=== PATIENT | female | born 1930 | race African-American/Black ===

== ENCOUNTER 2016-11-26 21:14 | Emergency (ER) | payer OTHER ==
[2016-11-26 21:45] VITALS: BMI 18.8
--- NOTE | 2016-11-26 22:12 | PDOC ---
History of Present Illness - General Chief Complaint: Injury Stated Complaint: RIGHT KNEE PAIN Time Seen by Provider: 11/26/16 21:37 Past History - Past Medical History Allergies/Adverse Reactions: Allergies Allergy/AdvReac Type Severity Reaction Status Date / Time No Known Allergies Allergy Verified 11/26/16 21:45 - Psycho/Social/Smoking Cessation Hx Suicidal Ideation: No Smoking History: Never smoked Have you smoked in the past 12 months: No Information on smoking cessation initiated: No Hx Alcohol Use: No Drug/Substance Use Hx: No *Physical Exam - Vital Signs Last Vital Signs Temp Pulse Resp BP Pulse Ox 98.9 F 81 19 111/87 97 11/26/16 21:38 11/26/16 21:38 11/26/16 21:38 11/26/16 21:38 11/26/16 21:38 *DC/Admit/Observation/Transfer - Discharge Dispostion Condition at time of disposition: Fair
[2016-11-26] MEDS ORDERED: ACETAMINOPHEN 500 MG TABLET (FP) PO ONE (22:19)
--- NOTE | 2016-11-26 22:23 | PDOC ---
History of Present Illness - General Chief Complaint: Injury Stated Complaint: RIGHT KNEE PAIN Time Seen by Provider: 11/26/16 21:37 - History of Present Illness Initial Comments: 11/26/16 22:20 86F w/ hx of paranoid schizophrenia presenting from [facility] for knee pain at the insistence of providers at her home. Pt reports losing her balance and falling backward in elevator this am and landing on her back and buttocks. She denies hurting her knee, any LOC, or dizziness. However, she states that later in the day, she began having pain behind her right knee causing her to limp. Past History - Past Medical History Allergies/Adverse Reactions: Allergies Allergy/AdvReac Type Severity Reaction Status Date / Time No Known Allergies Allergy Verified 11/26/16 21:45 Comment:: 11/26/16 22:23 paranoid schizophrenia HTN GERD COPD 11/26/16 22:23 - Surgical History Comments:: 11/26/16 22:23 None per patient - Psycho/Social/Smoking Cessation Hx Suicidal Ideation: No Smoking History: Never smoked Have you smoked in the past 12 months: No Information on smoking cessation initiated: No Hx Alcohol Use: No Drug/Substance Use Hx: No Review of Systems - Review of Systems Comments:: 11/26/16 22:23 GENERAL/CONSTITUTIONAL: No fever or chills. HEAD, EYES, EARS, NOSE AND THROAT: No change in vision. No ear pain or discharge. No sore throat. CARDIOVASCULAR: No chest pain or shortness of breath RESPIRATORY: No cough, wheezing, or hemoptysis. GASTROINTESTINAL: No nausea, vomiting, diarrhea or constipation. GENITOURINARY: No dysuria, frequency, or change in urination. SKIN: No rash NEUROLOGIC: No headache, vertigo, loss of consciousness, or change in strength/ sensation. ENDOCRINE: No increased thirst. No abnormal weight change HEMATOLOGIC/LYMPHATIC: No anemia, easy bleeding, or history of blood clots. ALLERGIC/IMMUNOLOGIC: No hives or skin allergy. *Physical Exam - Vital Signs Last Vital Signs Temp Pulse Resp BP Pulse Ox 98.9 F 81 19 111/87 97 11/26/16 21:38 11/26/16 21:38 11/26/16 21:38 11/26/16 21:38 11/26/16 21:38 - Physical Exam Comments: 11/26/16 22:26 GENERAL: Awake, alert, and fully oriented, in no acute distress HEAD: No signs of trauma, normocephalic, atraumatic LUNGS: No distress, speaks full sentences, clear to auscultation bilaterally HEART: Regular rate and rhythm, normal S1 and S2, no murmurs, rubs or gallops, peripheral pulses normal and equal bilaterally. ABDOMEN: Soft, nontender, normoactive bowel sounds. No guarding, no rebound. No masses EXTREMITIES: NT to palpation of right knee or popliteal fossa. Pain elicited when flexing knee but not extending knee. no swelling, no crepitus. NEUROLOGICAL: Cranial nerves II through XII grossly intact. Normal speech, pt limped favoring left leg, no focal sensorimotor deficits SKIN: Warm, Dry, normal turgor, no rashes or lesions noted. Medical Decision Making - Medical Decision Making 11/26/16 22:29 86F w/ hx of paranoid schizophrenia presenting with left popliteal fossa pain upon walking s/p fall in elevator. Exam notable for pain upon knee flexion, but no swelling or crepitus or focal knee pain evident. Likely muscular strain. -knee radiographs to rule out fracture -1000mg tylenol for pain *DC/Admit/Observation/Transfer Diagnosis at time of Disposition: Acute knee pain - Discharge Dispostion Disposition: HOME Condition at time of disposition: Stable Admit: No - Patient Instructions Additional Instructions: Pain behind your right knee is likely due to a muscular strain. Use walker when walking to prevent another fall and take tylenol as needed for pain. Return to ED if pain worsens or does not improve in 7 days. - Attestations Physician Attestion: 11/26/16 22:32 I, Dr. Gamal Keith, attest that this document has been prepared under my direction and personally reviewed by me in its entirety. I further attest, that it accurately reflects all work, treatment, procedures and medical decision -making performed by me.
[2016-11-26] MEDS ORDERED: ACETAMINOPHEN 325 MG TABLET (FP) ONE (22:41)
--- NOTE | 2016-11-26 23:04 | PDOC ---
Attending Attestation - Resident Resident Name: Gamal Keith - HPI HPI: 11/26/16 23:00 86 yo female from [place] fell backwards in an elevator this morning. -she Did not hit her head but later in the day she has pain in her rt knee -she is alert and ambulatory - Physicial Exam PE: 11/26/16 23:04 thin 86 yo female has c/o pain behind her rt knee right knee- no erythema,no swelling,FROM,no deformity, pt is ambulating lungs cta b/l cvr [id number] abd flat,nontender neuro moving all extremities,alert and conversant - Medical Decision Making 11/26/16 23:08 radiogrpah -no fracture. IMP muscle strain
--- NOTE | 2016-11-26 23:11 | PDOC ---
*Physical Exam - Vital Signs Last Vital Signs Temp Pulse Resp BP Pulse Ox 98.9 F 81 19 111/87 97 11/26/16 21:38 11/26/16 21:38 11/26/16 21:38 11/26/16 21:38 11/26/16 21:38 ED Treatment Course - Medications Given in the ED: ED Medications Discontinued Medications Generic Name Dose Route Start Last Admin Trade Name Ami PRN Reason Stop Dose Admin Acetaminophen 1,000 mg 11/26/16 22:19 11/26/16 22:48 Tylenol - PO 11/26/16 22:20 650 mg ONCE ONE Administration *DC/Admit/Observation/Transfer Diagnosis at time of Disposition: Knee pain, acute Qualifiers: Laterality: right Qualified Code(s): M25.561 - Pain in right knee - Discharge Dispostion Disposition: HOME Condition at time of disposition: Stable - Patient Instructions Printed Discharge Instructions: DI for Knee Pain Additional Instructions: Pain behind your right knee is likely due to a muscular strain. Use walker when walking to prevent another fall and take tylenol as needed for pain. Return to ED if pain worsens or does not improve in 7 days.
[2016-11-27 00:30] VITALS: BP 146/90; PULSE 65; TEMP 97.9
== END 2016-11-27 00:30 | disposition home or self-care (01) ==
LOC: SUPCPDRO 21:14 → JER 21:14
DX: M25.561 Pain in right knee (principal); W17.89XA Other fall from one level to another, initial encounter; Y93.89 Activity, other specified; Y92.198 Other place in other specified residential institution as the place of occurrence of the external cause; F20.0 Paranoid schizophrenia
CPT/HCPCS: 73564-TC-RT; 99282-25

== ENCOUNTER 2018-10-09 09:37 | Emergency (ER) | payer OTHER ==
[2018-10-09 09:57] VITALS: BMI 19.9
--- NOTE | 2018-10-09 09:57 | PDOC ---
History of Present Illness - General Chief Complaint: Injury Stated Complaint: FALL Time Seen by Provider: 10/09/18 09:47 - History of Present Illness Initial Comments: Filomena Milligan is an 88yo woman with a PMH of schizophrenia, COPD, HTN, GERD who presents from a SNF following a fall out of bed. She states that she was asleep and rolled out of bed. She landed "face first" onto the floor and hit her left forehead. She denies any other injury. She states that she currently feels well and denies any symtpoms other than local left forehead pain. Ms Milligan states that she did not think she needed to come to the ED but "they made me come." Past History - Past Medical History Allergies/Adverse Reactions: Allergies Allergy/AdvReac Type Severity Reaction Status Date / Time No Known Allergies Allergy Verified 10/09/18 09:51 Home Medications: Ambulatory Orders Benztropine Mesylate [Cogentin -] 0.5 mg PO BID 11/26/16 Citalopram Hydrobromide [Citalopram HBr] 20 mg PO DAILY 11/26/16 Clopidogrel Bisulfate [Clopidogrel] 75 mg PO DAILY 11/26/16 Divalproex [Depakote -] 250 mg PO BID 11/26/16 Donepezil HCl [Aricept -] 10 mg PO DAILY 11/26/16 Famotidine [Pepcid -] 20 mg PO BID 11/26/16 Olanzapine [Zyprexa -] 2.5 mg PO HS 11/26/16 COPD: Yes GI Disorders: Yes (GERD) HTN: Yes Psychiatric Problems: Yes (schizophrenia paranoid type) - Suicide/Smoking/Psychosocial Hx Smoking History: Never smoked Have you smoked in the past 12 months: No Hx Alcohol Use: No Drug/Substance Use Hx: No Substance Use Type: None Review of Systems - Review of Systems Comments:: General: No fevers, no chills, no weight or appetite change, no malaise HEENT: No changes in vision, no changes in hearing, no congestion, no sore throat CV: No chest pain, no palpitations, no LE edema Pulm: No SOB, no cough, no wheezing GI: No nausea or vomiting, no change in bowel habits, no melena : No frequency, no urgency, no dysuria Musc: No back pain, no joint swelling, no recent injury Skin: No rash, no lesions, no erythema Endo: No excessive thirst, no heat/cold intolerance Heme: No unusual bruising or bleeding, no swollen glands Neuro: No syncope, no numbness/tingling, no focal weakness Vasc: No claudication Psych: No recent change in mood, no SI or HI *Physical Exam - Physical Exam Comments: General: Comfortable, no acute distress HEENT: Contusion w/o laceration or abrasion on left forehead, notable swellingPERRL, EOMI, MMM, voice normal, normal neck ROM, no posterior tenderness Cards: RRR, no murmur appreciated Pulm: Comfortable on room air, clear to auscultation bilaterally Abd: Soft, nontender, nondistended Ext: Atraumatic. No LE edema. ROM intact Vasc: Extremities WWP. Skin: Normal color, no rashes or lesions Neuro: A&Ox3, CN grossly intact, normal speech, motor/sensory grossly intact and symmetric Psych: Mood appropriate to situation ED Treatment Course - LABORATORY CBC & Chemistry Diagram: 10/09/18 12:45 10/09/18 14:04 Medical Decision Making - Medical Decision Making 10/09/18 09:57 Filomena Milligan is an 88yo woman with a PMH of schizophrenia, COPD, HTN, GERD who presents from a SNF with a left forehead injury following a fall from bed while sleeping overnight. She denies any complaints but was noted to have a productive cough in the ED. - Contusion on left forehead w/o broken skin. No neuro deficits on exam - CT head, CT c-spine to evaluate for injury - Productive cough noted in ED w/ poor air movement on exam. Duoneb and CXR 10/09/18 11:12 - CT head and CT c-spine completed. No acute fracture, dislocation, bleeding, or other acute injury. - CXR to be completed. If no concerns, will most likely d/c home 10/09/18 14:54 - Labs unremarkable. - CXR without focal pathology - Observed ambulating without difficulty in the ED. Will d/c home Discussed with Dr Juan. Lisah Martinez PGY1 *DC/Admit/Observation/Transfer Diagnosis at time of Disposition: Fall Qualifiers: Encounter type: initial encounter Qualified Code(s): W19.XXXA - Unspecified fall, initial encounter Closed head injury Qualifiers: Encounter type: initial encounter Qualified Code(s): S09.90XA - Unspecified injury of head, initial encounter - Discharge Dispostion Disposition: HOME Condition at time of disposition: Stable Decision to Admit order: No - Referrals - Patient Instructions Printed Discharge Instructions: DI for Closed Head Injury Additional Instructions: Discharge Instructions: You were seen in the ED following a fall. You had no injury on your head or neck CT scans. You may take 650mg acetaminophen every 6-8 hours as needed for pain. Please continue taking all of your regular medications as prescribed. Follow up with your regular doctor within the next week. Seek immediate care for worsening symptoms, persistent falling, excessive sleepiness, multiple episodes of vomiting within an hour for several hours, any neurological symptoms, or any other medical emergency. - Post Discharge Activity
--- NOTE | 2018-10-09 10:26 | PDOC ---
Documentation entered by Kolby Woods SCRIBE, acting as scribe for Megan Juan MD. Megan Juan MD: This documentation has been prepared by the Chuck crews Aiswarya, SCRIBE, under my direction and personally reviewed by me in its entirety. I confirm that the documentation accurately reflects all work, treatment, procedures, and medical decision making performed by me. Attending Attestation - Resident Resident Name: MichelleLisha - ED Attending Attestation I have performed the following: I have examined & evaluated the patient, The case was reviewed & discussed with the resident, I agree w/resident's findings & plan, Exceptions are as noted - HPI HPI: 10/09/18 10:18 The patient is a 88 year old female, with a significant PMH of COPD, GERD, HTN and schizophrenia paranoid type CAROTID STENOSIS, who presents to the emergency department from [facility] for evaluation of fall that occurred today. The patient states she was sleeping and fell off her bed. She reports hitting her forehead but denies losing consciousness . The patient currently does not report any pain or any other injury but notes a left frontal hematoma. She mentions that she did not want to come in but staff at facility insisted. She denies any numbness, tingling or neurological deficit. Denies chest pain, shortness of breath, headache and dizziness. Allergies: NKDA Past surgical history:None reported Social history: None reported PCP: None reported 10/09/18 10:21 - Physicial Exam PE: 10/09/18 10:19 GENERAL: Awake, alert, and fully oriented, in no acute distress HEAD: +Left frontal hematoma. EYES: PERRLA, EOMI, sclera anicteric, conjunctiva clear ENT: Auricles normal inspection, hearing grossly normal, nares patent, oropharynx clear without exudates. Moist mucosa LUNGS: +Crackles at both bases. Poor air flow. HEART: Regular rate and rhythm, normal S1 and S2, no murmurs, rubs or gallops EXTREMITIES: 5/5 strength . Normal range of motion, no edema. No clubbing or cyanosis. No cords, erythema, or tenderness NEUROLOGICAL: No spinal tenderness. Cranial nerves II through XII grossly intact. Normal speech. SKIN: Warm, Dry, normal turgor, no rashes or lesions noted. - Medical Decision Making 10/09/18 11:59 88 yo F h/o schizophrenia carotid stenosis copd on plavix here s/p fall out of bed. c/o forehead heamtoma. pt states walks normally no assistance. has ambulated since her fall. no current c/o ext pain. no other laceration or contusions. 10/09/18 12:21 due to age and anticoagulation on plavix will CT head. CXR due to crackles at lung bases. will give duoneb. care plan d/w dr Kohler at [facility]. left message for pt son on mobile [phone]
[2018-10-09 10:32] VITALS: BP 117/73; PULSE 81; TEMP 98.7
[2018-10-09] MEDS ORDERED: ALBUTEROL SO4 2.5/IPRATROPIUM 0.5 INH SOL 3 ML VIAL.NEB. NEB ONE ×2 (11:27→11:29)
[2018-10-09] MEDS ORDERED: SODIUM CHLORIDE 0.9% 500 ML INFUS.BAG IV ONE (11:32)
[2018-10-09] MEDS ORDERED: METOCLOPRAMIDE HCL INJECTION 10 MG/2 ML VIAL IVPUSH ONE (11:32)
[2018-10-09 12:59] LABS: BASO % 0.7 % (0-2.0); EOS % 0.7 % (0-4.5); HEMATOCRIT 36.9 % (32.4-45.2); HEMOGLOBIN 12.3 GM/dL (10.7-15.3); LYMPH % 25.5 % (8-40); MCH 30.8 pg (25.7-33.7); MCHC 33.3 g/dl (32.0-36.0); MEAN CELL VOLUME 92.6 fl (80-96); MEAN PLT VOLUME 8.6 fl (7.5-11.1); NEUT % 61.1 % (42.8-82.8); RBC 3.99 M/mm3 (3.60-5.2); WHITE BLOOD COUNT 4.1 K/mm3 (4.0-10.0)
[2018-10-09] MEDS ORDERED: METOCLOPRAMIDE HCL INJECTION 10 MG/2 ML VIAL ONE (13:01)
[2018-10-09 13:22] LABS: PLATELET COUNT 119 K/MM3 (134-434)
[2018-10-09 14:47] LABS: ALBUMIN 3.5 g/dl (3.4-5.0); BILIRUBIN,TOTAL 0.6 mg/dL (0.2-1); BLOOD UREA NITROGEN 7.8 mg/dL (7-18); CALCIUM 8.6 mg/dL (8.5-10.1); CREATININE 0.6 mg/dL (0.55-1.3); POTASSIUM 4.1 mmol/L (3.5-5.1); TOT PROT 6.8 g/dl (6.4-8.2)
== END 2018-10-09 17:52 | disposition home or self-care (01) ==
LOC: JER 09:37
PROC: 3E0337Z Introduction of Electrolytic and Water Balance Substance into Peripheral Vein, Percutaneous Approach (ICD-10-PCS; principal; 2018-10-09)
PROC: 3E0F7GC Introduction of Other Therapeutic Substance into Respiratory Tract, Via Natural or Artificial Opening (ICD-10-PCS; 2018-10-09)
PROC: 3E033GC Introduction of Other Therapeutic Substance into Peripheral Vein, Percutaneous Approach (ICD-10-PCS; 2018-10-09)
DX: S09.90XA Unspecified injury of head, initial encounter (principal); W06.XXXA Fall from bed, initial encounter; Y93.89 Activity, other specified; Y92.092 Bedroom in other non-institutional residence as the place of occurrence of the external cause; J44.9 Chronic obstructive pulmonary disease, unspecified; I10 Essential (primary) hypertension; K21.9 Gastro-esophageal reflux disease without esophagitis; F25.9 Schizoaffective disorder, unspecified
CPT/HCPCS: 36415; 70450-TC; 71046-TC-FY; 72125-TC; 80053; 85025; 94640; 96374; 99283-25

== ENCOUNTER 2019-02-21 10:23 | Inpatient (IN) | payer OTHER ==
[2019-02-21] MEDS ORDERED: ACETAMINOPHEN 1000 MG/100 ML VIAL (NON FORMULARY) IVPB ONE (10:40)
[2019-02-21] MEDS ORDERED: SODIUM CHLORIDE 1,000 ML IV STA (10:40)
--- NOTE | 2019-02-21 10:46 | PDOC ---
History of Present Illness - General Chief Complaint: Injury Stated Complaint: FALL/RT HIP PAIN Time Seen by Provider: 02/21/19 10:38 - History of Present Illness Initial Comments: 02/21/19 10:41 Ms. Milligan is an 88 yo female w/ pmh of HTN, COPD, GERD, and schizophrenia transferred from [facility] where she is a resident for evaluation of R hip injury. Patient reportedly fell while getting ready this morning and hurt her R hip. Reports pain at site however has no other complaints at this time. Denies any head injury or LOC. Denies other symptoms at this time. The patient denies chest pain, shortness of breath, headache and dizziness. Denies fever, chills, nausea, vomit, diarrhea and constipation. Denies dysuria, frequency, urgency and hematuria. Past History - Past Medical History Allergies/Adverse Reactions: Allergies Allergy/AdvReac Type Severity Reaction Status Date / Time No Known Allergies Allergy Verified 10/09/18 09:51 Home Medications: Ambulatory Orders Benztropine Mesylate [Cogentin -] 0.5 mg PO BID 11/26/16 Citalopram Hydrobromide [Citalopram HBr] 20 mg PO DAILY 11/26/16 Clopidogrel Bisulfate [Clopidogrel] 75 mg PO DAILY 11/26/16 Divalproex [Depakote -] 250 mg PO BID 11/26/16 Donepezil HCl [Aricept -] 10 mg PO DAILY 11/26/16 Famotidine [Pepcid -] 20 mg PO BID 11/26/16 Olanzapine [Zyprexa -] 2.5 mg PO HS 11/26/16 COPD: Yes GI Disorders: Yes (GERD) HTN: Yes Psychiatric Problems: Yes (schizophrenia paranoid type) - Psycho Social/Smoking Cessation Hx Smoking History: Never smoked Have you smoked in the past 12 months: No Hx Alcohol Use: No Drug/Substance Use Hx: No Substance Use Type: None Review of Systems - Review of Systems Comments:: 02/21/19 10:45 GENERAL/CONSTITUTIONAL: No fever or chills. No weakness. HEAD, EYES, EARS, NOSE AND THROAT: No change in vision. No ear pain or discharge. No sore throat. CARDIOVASCULAR: No chest pain or shortness of breath RESPIRATORY: No cough, wheezing, or hemoptysis. GASTROINTESTINAL: No nausea, vomiting, diarrhea or constipation. GENITOURINARY: No dysuria, frequency, or change in urination. MUSCULOSKELETAL: +R hip pain as described. SKIN: No rash NEUROLOGIC: No headache, vertigo, loss of consciousness, or change in strength/ sensation. ENDOCRINE: No increased thirst. No abnormal weight change HEMATOLOGIC/LYMPHATIC: No anemia, easy bleeding, or history of blood clots. ALLERGIC/IMMUNOLOGIC: No hives or skin allergy. *Physical Exam - Physical Exam Comments: 02/21/19 10:45 GENERAL: Awake, alert, and oriented x2, in no acute distress HEAD: No signs of trauma, normocephalic, atraumatic EYES: PERRLA, EOMI, sclera anicteric, conjunctiva clear ENT: Auricles normal inspection, hearing grossly normal, nares patent, oropharynx clear without exudates. Moist mucosa NECK: Normal ROM, supple, no lymphadenopathy, JVD, or masses LUNGS: No distress, speaks full sentences, clear to auscultation bilaterally HEART: Regular rate and rhythm, normal S1 and S2, no murmurs, rubs or gallops, peripheral pulses normal and equal bilaterally. ABDOMEN: Soft, nontender, normoactive bowel sounds. No guarding, no rebound. No masses EXTREMITIES: +RLE shortnened and externally rotated. TTP at R hip. Otherwise normal inspection, no edema. No clubbing or cyanosis. NEUROLOGICAL: Cranial nerves II through XII grossly intact. Normal speech, normal gait, no focal sensorimotor deficits SKIN: Warm, Dry, normal turgor, no rashes or lesions noted. ED Treatment Course - LABORATORY CBC & Chemistry Diagram: 02/21/19 11:12 02/21/19 11:12 - RADIOLOGY Radiology Studies Ordered: Category Date Time Status CHEST X-RAY PORTABLE* [RAD] Stat Radiology 02/21/19 10:40 Ordered Medical Decision Making - Medical Decision Making 02/21/19 10:53 Ms. Milligan is an 88 yo female w/ pmh as described who presents for evaluation of symptoms concerning for fracture s/p fall. Patient will be evaluated with pre -op labs as well as XR. 02/21/19 12:04 Right femoral intertrochanteric fracture noted on XR. Patient will be admitted for orthopedic evaluation and surgery as needed. Discharge - Discharge Information Problems reviewed: Yes Clinical Impression/Diagnosis: Intertrochanteric fracture Qualifiers: Encounter type: initial encounter Fracture type: closed Fracture alignment: nondisplaced Laterality: right Qualified Code(s): S72.144A - Nondisplaced intertrochanteric fracture of right femur, initial encounter for closed fracture - Admission Yes - Follow up/Referral - Patient Discharge Instructions - Post Discharge Activity
[2019-02-21] MEDS ORDERED: ACETAMINOPHEN INJECTION 100 ML IVPB ONE (11:00)
[2019-02-21 11:29] LABS: BASO % 0.4 % (0-2.0); EOS % 0.2 % (0-4.5); HEMATOCRIT 39.8 % (32.4-45.2); HEMOGLOBIN 12.8 GM/dL (10.7-15.3); LYMPH % 8.3 % (8-40); MCH 30.3 pg (25.7-33.7); MCHC 32.2 g/dl (32.0-36.0); MEAN CELL VOLUME 94.1 fl (80-96); MONO % 6.2 % (3.8-10.2); NEUT % 84.9 % (42.8-82.8); PLATELET COUNT 205 K/MM3 (134-434); RBC 4.23 M/mm3 (3.60-5.2); RDW 14.3 % (11.6-15.6); WHITE BLOOD COUNT 8.9 K/mm3 (4.0-10.0)
--- NOTE | 2019-02-21 11:44 | PDOC ---
Documentation entered by Demetrius Yañez SCRIBE, acting as scribe for Nora Crisostomo MD. Nora Crisostomo MD: This documentation has been prepared by the Otilio crews Daniel, SCRIBE, under my direction and personally reviewed by me in its entirety. I confirm that the documentation accurately reflects all work, treatment, procedures, and medical decision making performed by me. Attending Attestation - Resident Resident Name: Torito Torrez - ED Attending Attestation I have performed the following: I have examined & evaluated the patient, The case was reviewed & discussed with the resident, I agree w/resident's findings & plan - HPI HPI: 02/21/19 10:52 The patient is an 88 year old female with a past medical history of schizophrenia, COPD, HTN, and GERD here today from [facility] for evaluation of right thigh/hip pain. The patient reports that she fell today and injured her right thigh, unable to ambulate.. She states that her roommate helped her up and denies any head strike or loss of consciousness. +Plavix use. no other AC. Patient denies headache, lightheadedness. Denies fever, chills. Denies chest pain, shortness of breath. Denies nausea, vomiting, diarrhea, abdominal pain. denies prodromal sx leading to fall. Allergies: NKA 02/21/19 11:45 - Physicial Exam PE: 02/21/19 11:39 Agree with the resident's HPI and PE as documented in the electronic medical record. NAD, well appearing, +hearing impairment. EOMI, PERRL, nl conjunctiva, anicteric; neck supple. lungs clear, +holosystolic murmur, abdomen soft nontender. no rebound, guarding. Back nontender. No peripheral edema. normal color for ethnicity, WWP. Right Lower Extremity: soft compartment. +right anterior hip and inner thigh TTP , ROM limited 2/2 pain. externally rotated and shortened, +limb length discrepency and obvious deformity. no calf tenderness. 5/5 plantar and dorsiflexion. SILT in L1-S1 distribution. . no laxity at knee jt. 2+ DP pulses bilaterally. - Medical Decision Making 02/21/19 11:41 Vital Signs Temp Pulse Resp BP Pulse Ox 98.7 F 93 H 16 115/53 L 95 02/21/19 10:23 02/21/19 10:23 02/21/19 10:23 02/21/19 10:23 02/21/19 10:23 Most likely hip fracture/femoral neck/IT fracture given obvious deformity and limb length discrepancy. Neurovascularly intact. Otherwise comfortable but with limb manipulation will endorse pain, Tylenol to be given. X-rays will reveal impacted hip fracture. Will offer a femoral nerve block for regional anesthesia. See separate procedure note performed with the resident. Preoperative labs obtained including type and screen, coags and basic CBC/ chemistry. Orthopedic consult with the on-call team, Dr Barba pt unable to be consented for FNB or operative management attempts made to call AUGUSTO Son. 02/21/19 13:57 Heart Score/ECG Review #1 ECG reviewed & interpreted by me at: 10:55 General ECG Interpretation: Sinus Rhythm, Normal Rate, Normal Intervals
[2019-02-21 11:55] LABS: ALBUMIN 3.5 g/dl (3.4-5.0); BILIRUBIN,TOTAL 0.5 mg/dL (0.2-1); BLOOD UREA NITROGEN 11.7 mg/dL (7-18); CREATININE 0.7 mg/dL (0.55-1.3); POTASSIUM 4.3 mmol/L (3.5-5.1); TOT PROT 7.7 g/dl (6.4-8.2)
[2019-02-21 12:18] LABS: INR 1.3 (0.83-1.09); PROTHROMBIN TIME (PATIENT) 15.4 SEC (9.7-13.0)
[2019-02-21 12:21] LABS: ACTIVATED PTT 35.5 SECONDS (25.2-36.5)
[2019-02-21] MEDS ORDERED: BUPIVACAINE HCL/PF 0.5% (5 MG/ML) 30 ML VIAL IJ ONE (12:46)
[2019-02-21] MEDS ORDERED: MORPHINE SULFATE 2 MG/ML VIAL IM PRN (13:11)
--- NOTE | 2019-02-21 13:16 | CONSULT ---
Consult - text type - Consultation Consultation Note: ORTHOPEDIC SURGERY CONSULTATION NOTE Department of Orthopedic Surgery HISTORY OF PRESENT ILLNESS Ms. Milligan is a 88 year old female w/ pmh of HTN, COPD, GERD, and schizophrenia transferred from [facility] [place] where she is a resident for evaluation of right hip injury. Patient reportedly fell while getting ready this morning and hurt her right hip. The orthopedic service was consulted for right hip fracture. The injury occurred while at the [place] [facility]. The patient notes pain in the right hip that worsens with movement. Denies any other injuries. Denies numbness, tingling or other constitutional complaints. Denies tobacco use, drug use, alcohol abuse. The patient lives at a [place] [facility] and uses no assistive devices at baseline. FAMILY HISTORY non-contributory REVIEW OF SYMPTOMS A twelve-point review of systems was performed and was negative except as noted in HPI. PHYSICAL EXAM Constitutional: Alert and oriented to person, but not place or time. Appears to be slightly confused.Appears well-developed and well-nourished. No acute distress, appropriate mood and affect. Right Upper Extremity: Skin warm, dry, and intact; no lesions, rashes or ulcers noted. Muscle mass equal and symmetric to contralateral side. No atrophy noted. No masses or effusions noted. No tenderness to palpation all joints; nontender throughout rest of extremity. Full passive and active ROM, free from pain. Joints stable with no pathologic laxity. M/R/U/MSK/AX motor intact; SILT distally; 2+ radial pulses; Cap refill brisk. Tone and reflexes normal. Left Upper Extremity: Skin warm, dry, and intact; no lesions, rashes or ulcers noted. Muscle mass equal and symmetric to contralateral side. No atrophy noted. No masses or effusions noted. No tenderness to palpation all joints; nontender throughout rest of extremity. Full passive and active ROM, free from pain. Joints stable with no pathologic laxity. M/R/U/MSK/AX motor intact; SILT distally; 2+ radial pulses; Cap refill brisk. Tone and reflexes normal. Right Lower Extremity: Skin warm, dry, and intact; no lesions, rashes or ulcers noted. Muscle mass equal and symmetric to contralateral side. No atrophy noted. No masses or effusions noted. Tender to palpation at the greater trochanter; nontender throughout rest of extremity. No cords or calf tenderness No significant calf/ankle edema. Full passive and active ROM of the ankle and foot, free from pain. Joints stable with no pathologic laxity. EHL/TA/GS motor intact; SILT distally; 2+ DP pulses; Cap refill brisk. Unable to SLR, positive log roll. Left Lower Extremity: Skin warm, dry, and intact; no lesions, rashes or ulcers noted. Muscle mass equal and symmetric to contralateral side. No atrophy noted. No masses or effusions noted. No tenderness to palpation all joints; nontender throughout rest of extremity. No cords or calf tenderness No significant calf/ankle edema. Full passive and active ROM, free from pain. Joints stable with no pathologic laxity. EHL/TA/GS motor intact; SILT distally; 2+ DP pulses; Cap refill brisk. Tone and reflexes normal. Active Problems Problem Status Category Onset Intertrochanteric fracture Acute Medical Social History Smoking history Never smoked Hx Alcohol Use No Allergies Allergy/AdvReac Type Severity Reaction Status Date / Time No Known Allergies Allergy Verified 10/09/18 09:51 Active Medications Generic Name Dose Route Start Last Admin Trade Name Freq PRN Reason Stop Dose Admin Benztropine Mesylate 0.5 mg 02/21/19 22:00 Cogentin - PO BID MADYSON Citalopram Hydrobromide 20 mg 02/22/19 10:00 Celexa - PO DAILY MADYSON Divalproex Sodium 250 mg 02/21/19 22:00 Depakote - PO BID MADYSON Donepezil HCl 10 mg 02/22/19 10:00 Aricept - PO DAILY MADYSON Famotidine 20 mg 02/21/19 22:00 Pepcid - PO BID MADYSON Dextrose/Sodium Chloride 1,000 mls @ 75 mls/hr 02/21/19 13:15 D5-Ns - IV ASDIR MADYSON Morphine Sulfate 1 mg 02/21/19 13:11 Morphine Sulfate IM Q6H PRN PAIN LEVEL 6-10 Olanzapine 2.5 mg 02/21/19 22:00 Zyprexa - PO HS MADYSON Vital Signs (last) Temp Pulse Resp BP Pulse Ox 98.7 F 93 H 16 115/53 L 95 02/21/19 10:23 02/21/19 10:23 02/21/19 10:23 02/21/19 10:23 02/21/19 10:23 Intake and Output 02/19/19 02/20/19 02/21/19 23:59 23:59 23:59 Other: Weight 110 lb Height 5 ft 4 in Body Mass Index (BMI) 18.8 Weight Measurement Method Estimated by Staff Laboratory 02/21/19 11:12 02/21/19 11:12 PT with INR 15.40 SEC (9.7-13.0) H 02/21/19 11:12 PTT (Actin FS) 35.5 SECONDS (25.2-36.5) 02/21/19 11:12 IMAGING I personally reviewed all radiographs, CT, and other imaging. They demonstrate a right intertrochanteric hip fracture. ASSESSMENT AND PLAN Ms. Milligan is an 88 year old female presenting status post fall with a right sided intertrochanteric fracture. We have reviewed the imaging and clinical findings in detail, as well as their potential implications. This is an operative fracture. Admit NPO past midnight except for medications - Hold anticoagulation medications past midnight - Hold Plavix today - Follow up AM Labs (Repeat CBC, BMP, Coags) - Ze DOSS LLE CBC/BMP/Coags Type and Screen/2 units PRBC on hold IV Fluids as per medical team while NPO EKG CXR UA I called her son's cell phone number and home phone numbers listed multiple times, and was unable to reach him. All questions were answered. Thank you for involving our team in the care of this patient. Please call us at [phone] with questions
[2019-02-21] MEDS ORDERED: BUPIVACAINE HCL/PF 0.5% (5MG/ML) 10 ML VIAL ONE (13:27)
[2019-02-21] MEDS: DEXTROSE 5%-NORMAL SALINE 1,000 ML IV SCH ×2 (14:18→15:39)
[2019-02-21 14:55] LABS: URINE APPEARANCE CLEAR; URINE BILIRUBIN NEGATIVE (NEGATIVE); URINE COLOR YELLOW; URINE GLUCOSE (UA) NEGATIVE (NEGATIVE); URINE KETONE NEGATIVE (NEGATIVE); URINE LEUK ESTERASE NEGATIVE (NEGATIVE); URINE NITRITE NEGATIVE (NEGATIVE); URINE PROTEIN NEGATIVE (NEGATIVE)
--- NOTE | 2019-02-21 15:10 | EKG ---
Test Reason : Blood Pressure : / mmHG Vent. Rate : 096 BPM Atrial Rate : 096 BPM P-R Int : 144 ms QRS Dur : 068 ms QT Int : 382 ms P-R-T Axes : 083 021 072 degrees QTc Int : 482 ms NORMAL SINUS RHYTHM NORMAL ECG WHEN COMPARED WITH ECG OF 12-OCT-2003 14:57, NO SIGNIFICANT CHANGE WAS FOUND Confirmed by ABBY JARVIS MD ([id number]) on 02/21/2019 3:10:06 PM Referred By: Confirmed By:ABBY JARVIS MD
--- NOTE | 2019-02-21 15:18 | CON.CARD ---
Consult Consult Specialty:: Cardiology Reason for Consultation:: hip fx preop eval - History of Present Illness History of Present Illness: Ms. Milligan is an 88 yo female w/ pmh of HTN, COPD, GERD, and schizophrenia transferred from [facility] where she is a resident for evaluation of R hip injury. Patient reportedly fell while getting ready this morning and hurt her R hip. Reports pain at site however has no other complaints at this time. Denies any head injury or LOC. Denies other symptoms at this time. The patient denies chest pain, shortness of breath, headache and dizziness. Denies fever, chills, nausea, vomit, diarrhea and constipation. Denies dysuria, frequency, urgency and hematuria. - History Source History Provided By: Medical Record - Past Medical History Cardio/Vascular: Yes: Other (Carotid atrery stenosis on Plavix) - Alcohol/Substance Use Hx Alcohol Use: No - Smoking History Smoking history: Never smoked Have you smoked in the past 12 months: No Home Medications - Allergies Allergies/Adverse Reactions: Allergies Allergy/AdvReac Type Severity Reaction Status Date / Time No Known Allergies Allergy Verified 10/09/18 09:51 - Home Medications Home Medications: Ambulatory Orders Benztropine Mesylate [Cogentin -] 0.5 mg PO BID 11/26/16 Citalopram Hydrobromide [Citalopram HBr] 20 mg PO DAILY 11/26/16 Clopidogrel Bisulfate [Clopidogrel] 75 mg PO DAILY 11/26/16 Divalproex [Depakote -] 250 mg PO BID 11/26/16 Donepezil HCl [Aricept -] 10 mg PO DAILY 11/26/16 Famotidine [Pepcid -] 20 mg PO BID 11/26/16 Olanzapine [Zyprexa -] 2.5 mg PO HS 11/26/16 Review of Systems - Review of Systems Constitutional: reports: No Symptoms Eyes: reports: No Symptoms HENT: reports: No Symptoms Neck: reports: No Symptoms Cardiovascular: reports: No Symptoms Respiratory: reports: No Symptoms Gastrointestinal: reports: No Symptoms Genitourinary: reports: No Symptoms Breasts: reports: No Symptoms Reported Musculoskeletal: reports: No Symptoms Integumentary: reports: No Symptoms Neurological: reports: No Symptoms Endocrine: reports: No Symptoms Hematology/Lymphatic: reports: No Symptoms Psychiatric: reports: No Symptoms Vital Signs: Vital Signs Temperature 98.4 F 02/21/19 14:31 Pulse Rate 61 02/21/19 14:31 Respiratory Rate 16 02/21/19 14:31 Blood Pressure 116/74 02/21/19 14:31 O2 Sat by Pulse Oximetry (%) 98 02/21/19 14:31 Constitutional: Yes: Well Nourished, No Distress, Calm Eyes: Yes: WNL, Conjunctiva Clear, EOM Intact HENT: Yes: WNL, Atraumatic, Normocephalic Neck: Yes: WNL, Supple, Trachea Midline Respiratory: Yes: WNL, Regular, CTA Bilaterally Gastrointestinal: Yes: WNL, Normal Bowel Sounds Renal/: Yes: WNL Cardiovascular: Yes: WNL, Regular Rate and Rhythm Musculoskeletal: Yes: WNL Extremities: Yes: External Rotation Integumentary: Yes: WNL Neurological: Yes: WNL, Alert, Oriented ...Motor Strength: WNL Psychiatric: Yes: WNL, Alert, Oriented - Other Data Labs, Other Data: CBC, BMP 02/21/19 11:12 02/21/19 11:12 INR, PTT INR 1.30 (0.83-1.09) H 02/21/19 11:12 Imaging - Results Chest X-ray: Image Reviewed (no i/e) EKG: Image Reviewed (sr wnl) Problem List - Problems (1) Intertrochanteric fracture Code(s): S72.143A - DISPLACED INTERTROCHANTERIC FRACTURE OF UNSP FEMUR, INIT Qualifiers: Encounter type: initial encounter Fracture type: closed Fracture alignment: nondisplaced Laterality: right Qualified Code(s): S72.144A - Nondisplaced intertrochanteric fracture of right femur, initial encounter for closed fracture (2) Closed head injury Code(s): S09.90XA - UNSPECIFIED INJURY OF HEAD, INITIAL ENCOUNTER (3) Fall Code(s): W19.XXXA - UNSPECIFIED FALL, INITIAL ENCOUNTER (4) Knee pain, acute Code(s): M25.569 - PAIN IN UNSPECIFIED KNEE Assessment/Plan HTN, COPD, GERD, and schizophrenia transferred from [facility] where she is a resident for evaluation of R hip injury fx. NO syncope PAD on plavix ?carotid artery stenosis - details not available EKG normal Plan echo carotid duplex lipid profile daily ekg Agree with stoping plavix. Patient is increased risks for bleedingcomplications du to being on Plavix
[2019-02-21 15:56] VITALS: BMI 17.5
[2019-02-21] MEDS ORDERED: ENOXAPARIN NA (PORCINE) 40 MG/0.4 ML DISP.SYRIN SQ ONE (16:40)
--- NOTE | 2019-02-21 16:40 | HP ---
CHIEF COMPLAINT: fall in [place] [facility] PCP:[facility] HISTORY OF PRESENT ILLNESS: Ms. Milligan is an 88 yo female w/ pmh of HTN, COPD, GERD, and schizophrenia transferred from [facility] where she is a resident for evaluation of R hip injury. Patient reportedly fell while getting ready this morning and hurt her R hip. Reports pain at site however has no other complaints at this time. Denies any head injury or LOC. Denies other symptoms at this time.Patient came to er via ambulance and left multiple messages to her son for further management and but has no answer. pt is comfortable and has no pains she also have some discharge in her eyes and rt is more than left but has no pains. The patient denies chest pain, shortness of breath, headache and dizziness. Denies fever, chills, nausea, vomit, diarrhea and constipation. Denies dysuria, frequency, urgency and hematuria. ER course was notable for: (1)fall in [place] home (2)h/o schizophrenia (3) Recent Travel: PAST MEDICAL HISTORY:Ms. Milligan is an 88 yo female w/ pmh of HTN, COPD, GERD, and schizophrenia. PAST SURGICAL HISTORY: not available Social History: Smoking:none Alcohol:none Drugs: none Allergies No Known Allergies Allergy (Verified 10/09/18 09:51) HOME MEDICATIONS: Home Medications Medication Instructions Recorded Benztropine Mesylate [Cogentin -] 0.5 mg PO BID 11/26/16 Citalopram Hydrobromide 20 mg PO DAILY 11/26/16 [Citalopram HBr] Clopidogrel Bisulfate [Clopidogrel] 75 mg PO DAILY 11/26/16 Divalproex [Depakote -] 250 mg PO BID 11/26/16 Donepezil HCl [Aricept -] 10 mg PO DAILY 11/26/16 Famotidine [Pepcid -] 20 mg PO BID 11/26/16 Olanzapine [Zyprexa -] 2.5 mg PO HS 11/26/16 REVIEW OF SYSTEMS CONSTITUTIONAL: Absent: fever, chills, diaphoresis, generalized weakness, malaise, loss of appetite, weight change HEENT: Absent: rhinorrhea, nasal congestion, throat pain, throat swelling, difficulty swallowing, mouth swelling, ear pain, eye pain, visual changes CARDIOVASCULAR: Absent: chest pain, syncope, palpitations, irregular heart rate, lightheadedness , peripheral edema RESPIRATORY: Absent: cough, shortness of breath, dyspnea with exertion, orthopnea, wheezing, stridor, hemoptysis GASTROINTESTINAL: Absent: abdominal pain, abdominal distension, nausea, vomiting, diarrhea, constipation, melena, hematochezia GENITOURINARY: Absent: dysuria, frequency, urgency, hesitancy, hematuria, flank pain, genital pain MUSCULOSKELETAL: Absent: myalgia, arthralgia, joint swelling, back pain, neck pain positive pain in her hip SKIN: Absent: rash, itching, pallor HEMATOLOGIC/IMMUNOLOGIC: Absent: easy bleeding, easy bruising, lymphadenopathy, frequent infections ENDOCRINE: Absent: unexplained weight gain, unexplained weight loss, heat intolerance, cold intolerance NEUROLOGIC: Absent: headache, focal weakness or paresthesias, dizziness, unsteady gait, seizure, mental status changes, bladder or bowel incontinence PHYSICAL EXAMINATION Vital Signs - 24 hr 02/21/19 02/21/19 02/21/19 10:23 14:31 15:35 Temperature 98.7 F 98.4 F 97.7 F Pulse Rate 93 H 97 H Pulse Rate [ 61 Apical] Respiratory 16 16 16 Rate Blood Pressure 115/53 L 111/70 Blood Pressure 116/74 [Left Arm] O2 Sat by Pulse 95 98 Oximetry (%) 02/21/19 15:42 Temperature 97.7 F Pulse Rate 97 H Pulse Rate [ Apical] Respiratory 16 Rate Blood Pressure 111/70 Blood Pressure [Left Arm] O2 Sat by Pulse 100 Oximetry (%) GENERAL: Awake, alert, and fully oriented, in no acute distress. HEAD: Normal with no signs of trauma. EYES: Pupils equal, has mild conjunctivitis on her both eyes mild EARS, NOSE, THROAT: Ears normal, nares patent, oropharynx clear without exudates. Moist mucous membranes. NECK: Normal range of motion, supple without lymphadenopathy, JVD, or masses. LUNGS: Breath sounds equal, clear to auscultation bilaterally. No wheezes, and no crackles. No accessory muscle use. HEART: Regular rate and rhythm, normal S1 and S2 WITH murmur SYSTOLIC AND EJECTION BUT NO rub or gallop. ABDOMEN: Soft, nontender, not distended, normoactive bowel sounds, no guarding, no rebound, no masses. No hepatomegaly or splenomegaly. MUSCULOSKELETAL: pain in her rt hip UPPER EXTREMITIES: 2+ pulses, warm, well-perfused. No cyanosis. No clubbing. No peripheral edema. LOWER EXTREMITIES: 2+ pulses, warm, well-perfused. No calf tenderness. No peripheral edema. NEUROLOGICAL: Cranial nerves II-XII intact. Normal speech. Normal gait. Laboratory Results - last 24 hr 02/21/19 02/21/19 02/21/19 11:12 11:12 11:12 WBC 8.9 RBC 4.23 Hgb 12.8 Hct 39.8 MCV 94.1 MCH 30.3 MCHC 32.2 RDW 14.3 Plt Count 205 D MPV 8.0 Absolute Neuts (auto) 7.5 Neutrophils % 84.9 H D Lymphocytes % 8.3 D Monocytes % 6.2 Eosinophils % 0.2 Basophils % 0.4 Nucleated RBC % 0 PT with INR 15.40 H INR 1.30 H PTT (Actin FS) 35.5 Sodium 132 L Potassium 4.3 Chloride 95 L Carbon Dioxide 31 Anion Gap 6 L BUN 11.7 Creatinine 0.7 Est GFR (CKD-EPI)AfAm 90.29 Est GFR (CKD-EPI)NonAf 77.90 Random Glucose 159 H Calcium 9.0 Total Bilirubin 0.5 AST 15 ALT 15 Alkaline Phosphatase 60 Total Protein 7.7 Albumin 3.5 Urine Color Urine Appearance Urine pH Ur Specific [place] Urine Protein Urine Glucose (UA) Urine Ketones Urine Blood Urine Nitrite Urine Bilirubin Urine Urobilinogen Ur Leukocyte Esterase Blood Type Antibody Screen 02/21/19 02/21/19 02/21/19 11:12 12:58 14:19 WBC RBC Hgb Hct MCV MCH MCHC RDW Plt Count MPV Absolute Neuts (auto) Neutrophils % Lymphocytes % Monocytes % Eosinophils % Basophils % Nucleated RBC % PT with INR INR PTT (Actin FS) Sodium Potassium Chloride Carbon Dioxide Anion Gap BUN Creatinine Est GFR (CKD-EPI)AfAm Est GFR (CKD-EPI)NonAf Random Glucose Calcium Total Bilirubin AST ALT Alkaline Phosphatase Total Protein Albumin Urine Color Yellow Urine Appearance Clear Urine pH 7.0 Ur Specific [place] 1.011 Urine Protein Negative Urine Glucose (UA) Negative Urine Ketones Negative Urine Blood Negative Urine Nitrite Negative Urine Bilirubin Negative Urine Urobilinogen 1.0 Ur Leukocyte Esterase Negative Blood Type A POSITIVE A POSITIVE Antibody Screen Negative ASSESSMENT/PLAN: Ms. Milligan is an 88 yo female w/ pmh of HTN, COPD, GERD, and schizophrenia with R hip injury and fracutre of hip Orthopedics has already seen her and recommended to have surgery and patient is refusing. I have and er physician has multiple attempts and no answers. Requested pshyciatric consult for capacity. hold plavix for possible surgery am] will do echo for looking into cause of murmur cardio consult and pt is already seen by dr Keller Htn stable no meds Current Medications Dementia continue following medications. Benztropine Mesylate (Cogentin -) 0.5 mg PO BID MADYSON Citalopram Hydrobromide (Celexa -) 20 mg PO DAILY MADYSON Donepezil HCl (Aricept -) 10 mg PO DAILY MADYSON schizophrenia Olanzapine (Zyprexa -) 2.5 mg PO HS MADYSON psych evaluation conjunctivitis Tobramycin/Dexamethasone Visit type - Emergency Visit Emergency Visit: Yes ED Registration Date: 02/21/19 Care time: The patient presented to the Emergency Department on the above date and was hospitalized for further evaluation of their emergent condition. - New Patient This patient is new to me today: Yes Date on this admission: 02/21/19 - Critical Care Critical Care patient: No
[2019-02-21] MEDS ORDERED: PT OWN MED DRAWER 7, Y5N ONE ×2 (18:18→21:39)
[2019-02-21] MEDS ORDERED: OLANZapine 2.5 MG TABLET PO SCH (22:00)
[2019-02-21] MEDS: BENZTROPINE MESYLATE 0.5 MG TABLET (FP) PO SCH (22:39)
[2019-02-21] MEDS: DIVALPROEX SODIUM 250 MG TABLET E.C. PO SCH (22:39)
[2019-02-21] MEDS: FAMOTIDINE 20 MG TABLET PO SCH (22:39)
[2019-02-21] MEDS: TOBRA 0.3%/DEXAMETH 0.1% OPHTHALMIC SUSP 2.5 ML BTL OU SCH (22:39)
[2019-02-22] MEDS: DEXTROSE 5%-NORMAL SALINE 1,000 ML IV SCH (05:03)
[2019-02-22 08:07] LABS: CHOLESTEROL 135 mg/dL (50-200); HDL CHOLESTEROL 42 mg/dL (40-60); LDL CHOLESTEROL (ONLY SJRH) 78 mg/dL (5-100); TRIGLYCERIDES 84 mg/dL (0-150)
--- NOTE | 2019-02-22 09:43 | ECHO ---
Name: DAKSHA BARRETO Exam:Adult Echocardiogram Study Date: 02/22/2019 07:45 AM Age: 88 yrs Reason For Study: Pre-op Height: 64 in Weight: 110 lb BSA: 1.5 m2 MMode/2D Measurements & Calculations IVSd: 1.9 cm Ao root diam: 2.9 cm LVIDd: 2.5 cm LA dimension: 2.7 cm LVIDs: 1.6 cm LVPWd: 1.3 cm EDV(Teich): 23.1 ml LVOT diam: 2.0 cm ESV(Teich): 7.7 ml LAV (MOD-bp): 97.2 ml Doppler Measurements & Calculations MV V2 max: 146.7 cm/sec MV E max pradip: 143.0 cm/sec MV max P.6 mmHg MV A max pradip: 144.8 cm/sec MV V2 mean: 109.6 cm/sec MV E/A: 0.99 MV mean P.2 mmHg MV dec time: 0.16 sec MV V2 VTI: 38.2 cm Ao V2 max: 264.0 cm/sec MR max pradip: 581.1 cm/sec Ao max P.9 mmHg MR max P.0 mmHg Ao V2 mean: 173.1 cm/sec Ao mean P.5 mmHg Ao V2 VTI: 44.2 cm TR max pradip: 245.7 cm/sec PA V2 max: 108.6 cm/sec TR max P.2 mmHg PA max P.7 mmHg Med Peak E' Pradip: 4.0 cm/sec Med E/e': 35.5 Lat Peak E' Pradip: 4.9 cm/sec Lat E/e': 29.2 Procedure A complete two-dimensional transthoracic echocardiogram was performed (2D, M-mode, Doppler and color flow Doppler). Left Ventricle The left ventricle is normal in size. There is severe concentric left ventricular hypertrophy. Left ventricular systolic function is normal. Ejection Fraction = 65-70%. No regional wall motion abnormal ities noted. Right Ventricle The right ventricle is normal size. The right ventricular systolic function is normal. Atria The left atrium is severely dilated. Right atrial size is normal. Mitral Valve There is mild to moderate mitral valve thickening. There is moderate mitral annular calcification. Th ere is systolic anterior motion of the chordal apparatus. 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 There is moderate mitral regurgitation. Tricuspid Valve The tricuspid valve is normal in structure and function. There is mild tricuspid regurgitation. Pulmo nary artery systolic pressure is at least 30 mmHg assuming RA pressure of 3 mmHg. Aortic Valve The aortic valve is not well visualized. There is moderate aortic sclerosis.;. No aortic regurgitatio n is present. Pulmonic Valve The pulmonic valve is not well visualized. Great Vessels The aortic root is normal size. Pericardium/Pleura There is no pericardial effusion. Interpretation Summary The left ventricle is normal in size. There is severe concentric left ventricular hypertrophy. Left ventricular systolic function is normal. No regional wall motion abnormalities noted. Ejection Fraction = 65-70%. The right ventricular systolic function is normal. The left atrium is severely dilated. There is mild to moderate mitral valve thickening. There is moderate mitral annular calcification. Suggestion of functional mitral valve stenosis secondary to MAC There is moderate mitral regurgitation. There is mild tricuspid regurgitation. Pulmonary artery systolic pressure is at least 30 mmHg assuming RA pressure of 3 mmHg There is moderate aortic sclerosis. There is systolic anterior motion of the chordal apparatus without evidence of significant LVOT obstr uction There is no pericardial effusion. Clinical correlation is recommended. Previous study is not available for comparison Rubio Falk MD 02/22/2019 09:42 AM
--- NOTE | 2019-02-22 09:53 | PN ---
Progress Note (short form) - Note Progress Note: ORTHOPEDIC SURGERY PROGRESS NOTE Department of Orthopedic Surgery SUBJECTIVE No acute events overnight. No complaints currently. Resting comfortably in bed. Denies chest pain, shortness of breath, or calf pain. No nausea or vomiting. Pain control difficult overnight, but improving. PHYSICAL EXAMINATION General: Currently alert and mildly confused. cooperative and no distress. Right Lower Extremity: Skin intact, no lesions, rashes or ulcers noted. Muscle mass equal and symmetric to contralateral side. No atrophy noted. No masses or effusions noted. No tenderness to palpation. Full passive and active ROM of the knee and ankle, free from pain. EHL/TA/GS motor intact; SILT distally; 2+ DP pulses; Cap refill brisk. Unable to SLR; Positive Log roll test. DVT Exam: No evidence of DVT seen on physical exam; No cords or calf tenderness ; No significant calf/ankle edema. Intake & Output 02/20/19 02/21/19 02/22/19 23:59 23:59 23:59 Intake Total 850 800 Output Total 400 600 Balance 450 200 Intake: IV 450 600 D5-Ns - 1,000 ml @ 75 mls 450 600 /hr IV ASDIR MADYSON Rx#: [id number] Oral 400 200 Output: Urine 400 600 Kunz 400 600 Other: Voiding Method Indwelling Catheter Bowel Movement No No Weight 102 lb 3.2 oz Height 5 ft 4 in Body Mass Index (BMI) 17.5 Weight Measurement Method Built in [facility] Weight Measurement Method Estimated by Staff Active Medications Generic Name Dose Route Start Last Admin Trade Name Freq PRN Reason Stop Dose Admin Benztropine Mesylate 0.5 mg 02/21/19 22:00 02/21/19 22:39 Cogentin - PO 0.5 mg BID MADYSON Administration Citalopram Hydrobromide 20 mg 02/22/19 10:00 Celexa - PO DAILY MADYSON Divalproex Sodium 250 mg 02/21/19 22:00 02/21/19 22:39 Depakote - PO 250 mg BID MADYSON Administration Donepezil HCl 10 mg 02/22/19 10:00 Aricept - PO DAILY MADYSON Famotidine 20 mg 02/21/19 22:00 02/21/19 22:39 Pepcid - PO 20 mg BID MADYSON Administration Dextrose/Sodium Chloride 1,000 mls @ 75 mls/hr 02/21/19 13:15 02/22/19 05:03 D5-Ns - IV 75 mls/hr ASDIR MADYSON Administration Morphine Sulfate 1 mg 02/21/19 13:11 Morphine Sulfate IM Q6H PRN PAIN LEVEL 6-10 Olanzapine 2.5 mg 02/21/19 22:00 02/21/19 22:39 Zyprexa - PO 2.5 mg HS MADYSON Administration Tobramycin/Dexamethasone 1 drop 02/21/19 22:00 02/21/19 22:39 Tobradex Ophthalmic Suspension - OU 1 drop BID MADYSON Administration Vital Signs (last) Temp Pulse Resp BP Pulse Ox 98.0 F 80 20 130/70 100 02/22/19 00:18 02/22/19 00:18 02/22/19 00:18 02/22/19 00:18 02/21/19 20:05 Laboratory (coagulation) PT with INR 15.80 SEC (9.7-13.0) H 02/22/19 10:13 Laboratory 02/22/19 10:13 02/22/19 10:13 ASSESSMENT AND PLAN Ms. Milligan is an 88 year old female presenting status post fall with a right sided intertrochanteric fracture. We have reviewed the imaging and clinical findings in detail, as well as their potential implications. This is an operative fracture. - Patient seems to lack capacity to make her own medical decisions. We will obtain psychiatry evaluation for capacity at this time. - Follow up Psychiatry consult for capacity of the patient. Her son is at bedside, and states he has been making all of her medical decisions. NPO except for medications - Hold anticoagulation medications - Follow up Kunz output NWB LLE Type and Screen/2 units PRBC on hold IV Fluids as per medical team while NPO Follow up Echo Results. All questions were answered. Thank you for involving our team in the care of this patient. Please call us at [phone] with questions
[2019-02-22] MEDS ORDERED: DONEPEZIL HCL 10 MG TABLET (FP) PO SCH (10:00)
[2019-02-22] MEDS ORDERED: CITALOPRAM HYDROBROMIDE 20 MG TABLET (FP) PO SCH (10:00)
[2019-02-22 10:42] LABS: BASO % 0.4 % (0-2.0); HEMATOCRIT 28.4 % (32.4-45.2); HEMOGLOBIN 9.1 GM/dL (10.7-15.3); LYMPH % 14.9 % (8-40); MCH 30.3 pg (25.7-33.7); MCHC 32.1 g/dl (32.0-36.0); MEAN CELL VOLUME 94.3 fl (80-96); MEAN PLT VOLUME 8.7 fl (7.5-11.1); MONO % 11.3 % (3.8-10.2); NEUT % 73.4 % (42.8-82.8); PLATELET COUNT 144 K/MM3 (134-434); RBC 3.01 M/mm3 (3.60-5.2); RDW 14.6 % (11.6-15.6); WHITE BLOOD COUNT 6.5 K/mm3 (4.0-10.0)
--- NOTE | 2019-02-22 10:52 | CON.PSY ---
Psychiatry Consult Chief Complaint: 88 Ye5a old female admitted with Fractured Hip seen for Psych evaluation. Patient apparantly refusing Surgery, thinks its getting better. She has been a resident at [facility] (Formerly [facility] a [facility]. - Previous Psychiatric Treatment Outpatient: None Inpatient: None - Previous Substance Abuse Treatment Outpatient: None Inpatient: None - Reason for Previous Treatment Reason for Previous Treatment: Psychotic Episode - Current Medications Current Medications: Active Medications Benztropine Mesylate (Cogentin -) 0.5 mg PO BID [facility] Last Admin: 02/21/19 22:39 Dose: 0.5 mg Citalopram Hydrobromide (Celexa -) 20 mg PO DAILY [facility] Divalproex Sodium (Depakote -) 250 mg PO BID [facility] Last Admin: 02/21/19 22:39 Dose: 250 mg Donepezil HCl (Aricept -) 10 mg PO DAILY [facility] Famotidine (Pepcid -) 20 mg PO BID [facility] Last Admin: 02/21/19 22:39 Dose: 20 mg Dextrose/Sodium Chloride (D5-Ns -) 1,000 mls @ 75 mls/hr IV ASDIR [facility] Last Admin: 02/22/19 05:03 Dose: 75 mls/hr Morphine Sulfate (Morphine Sulfate) 1 mg IM Q6H PRN PRN Reason: PAIN LEVEL 6-10 Olanzapine (Zyprexa -) 2.5 mg PO HS [facility] Last Admin: 02/21/19 22:39 Dose: 2.5 mg Tobramycin/Dexamethasone (Tobradex Ophthalmic Suspension -) 1 drop OU BID [facility] Last Admin: 02/21/19 22:39 Dose: 1 drop - Allergies Allergies: Allergies Allergy/AdvReac Type Severity Reaction Status Date / Time No Known Allergies Allergy Verified 10/09/18 09:51 - Current Living Status Usual Living Arrangement: Assisted Living - Current Mental Status Evaluation Appearance: Disheveled Attitude: Guarded - Affect Affect: Constrictive Appropriateness: Not Appropriate - Mood Mood: Euthymic - Speech/Language Expressive: Coherent - Psychomotor Activity Psychomotor Activity: Hyperactive - Thought Process Thought Process: Circumstantial - Thought Content Hallucinations: Absent Delusions: Absent - Self Perception Self Perception: No Impairment - Cognition Attention: Alert Memory, Short Term: 2/3 Memory, Remote with Promptin/3 - Concentration Serial Sevens Intact: No Simple Calculations Intact: No - Abstraction Proverb Interpretation: [place] Judgement: Severely Impaired - Insight Insight: Impaired - Impulse Control Impulse Control: Minimally Impaired - Suicidal Ideation Suicidal Ideation: No - Homicidal Ideation Homicidal Ideation: No Assessment/Plan 1) Patient lacks Functional Capacity to make informed Medical decisions at this time.
[2019-02-22 10:55] LABS: INR 1.34 (0.83-1.09); PROTHROMBIN TIME (PATIENT) 15.8 SEC (9.7-13.0)
[2019-02-22 11:05] LABS: CALCIUM 8.4 mg/dL (8.5-10.1); CREATININE 0.6 mg/dL (0.55-1.3); POTASSIUM 4.2 mmol/L (3.5-5.1)
[2019-02-22] MEDS: BENZTROPINE MESYLATE 0.5 MG TABLET (FP) PO SCH ×2 (11:16→22:03)
[2019-02-22] MEDS: FAMOTIDINE 20 MG TABLET PO SCH ×2 (11:17→22:04)
[2019-02-22] MEDS: TOBRA 0.3%/DEXAMETH 0.1% OPHTHALMIC SUSP 2.5 ML BTL OU SCH ×2 (11:17→22:04)
[2019-02-22] MEDS: DIVALPROEX SODIUM 250 MG TABLET E.C. PO SCH ×2 (11:17→22:04)
--- NOTE | 2019-02-22 11:28 | PN ---
Teaching Attending Note Name of Resident: Desmond Anthony ATTENDING PHYSICIAN STATEMENT I saw and evaluated the patient. I reviewed the resident's note and discussed the case with the resident. I agree with the resident's findings and plan as documented. Seen and examined; no new complaints. Reviewed chart. Independently verified all adrian resident Hx and PE findings. 10 sys ROS done and negative aside from HPI PMH, PSH, FH, SH reviewed VS labs and imaging reviewed NAD, AAO, resting in bed NC AT EOMI PERRLA Neurovascularly intact; indicated leg short/ext. rotated NT ND +BS CN2-12 wnl, no fnd HR wnl, no fnd Lungs CTAB, w/ sym exp Normal mood, appropriate behavior. 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 EKG reviewed ASSESSMENT AND PLAN: Patient seen and examined; will be going for hip sgy today with Dr. Barba. Spoke with consulting service and discussed case with resident team. Of course would recommend formal CV assessment before proceeding, but literature appreciated with regards to early intervention with surgery in these patients. Overall she is stable with no current cardiopulmonary symptoms. Her RCRI would be 1 (Class II Risk) and her Marti Perioperative risk would be 1.8% RAEANN risk. Given the risks vs. benefits no carmen contraindications to surgery pending no further input from cardiology.
--- NOTE | 2019-02-22 11:28 | PN ---
Progress Note (short form) - Note Progress Note: HPI: Pt poor historian and hard of hearing. Pt denies any pain with rest currently. Pt endorses cough currently, but no other symptoms. No events overnight. Pt awaiting consent for procedure 02/22/19 09:00 Temperature 98.8 F Pulse Rate 87 Respiratory 20 Rate Blood Pressure 104/73 PE: GEN: Frail, hearing loss, oriented x2, no acute distress HEENT: Nc/AT, INDIRA, MMM LUNG: CTA b/l no wheezes currently CARD: RRR no murmurs ABD: Soft, Nt/Nd, normoactive BS EXT: Ext rotated R leg, aROm distal to fracture intact, strong distal pulses b/l , cap refill <2 CBC, BMP 02/22/19 15:40 02/22/19 15:40 Active Medications Benztropine Mesylate (Cogentin -) 0.5 mg PO BID [facility] Last Admin: 02/22/19 22:03 Dose: 0.5 mg Citalopram Hydrobromide (Celexa -) 20 mg PO DAILY [facility] Divalproex Sodium (Depakote -) 250 mg PO BID [facility] Last Admin: 02/22/19 22:04 Dose: 250 mg Donepezil HCl (Aricept -) 10 mg PO DAILY [facility] Enoxaparin Sodium (Lovenox -) 40 mg SQ DAILY [facility] Famotidine (Pepcid -) 20 mg PO BID [facility] Last Admin: 02/22/19 22:04 Dose: 20 mg Fentanyl (Sublimaze Injection -) 25 mcg IVPUSH [id number] PRN PRN Reason: PAIN-PACU ORDER X 4 DOSES ONLY Lactated Ringer's (Lactated Ringers Solution) 1,000 mls @ 75 mls/hr IV ASDIR [facility] Last Admin: 02/22/19 22:02 Dose: 75 mls/hr Cefazolin Sodium 1 gm/ (Dextrose) 50 mls @ 200 mls/hr IVPB Q8H [facility] Stop: 02/23/19 06:14 Last Admin: 02/22/19 22:02 Dose: 200 mls/hr Dextrose/Sodium Chloride (D5-Ns -) 1,000 mls @ 75 mls/hr IV ASDIR [facility] Last Admin: 02/22/19 20:33 Dose: Not Given Morphine Sulfate (Morphine Sulfate) 1 mg IM Q6H PRN PRN Reason: PAIN LEVEL 6-10 Olanzapine (Zyprexa -) 2.5 mg PO HS MADYSON Last Admin: 02/22/19 22:04 Dose: 2.5 mg Ondansetron HCl (Zofran Injection) 4 mg IVPUSH Q6H PRN PRN Reason: NAUSEA AND/OR VOMITING Tobramycin/Dexamethasone (Tobradex Ophthalmic Suspension -) 1 drop OU BID [facility] Last Admin: 02/22/19 22:04 Dose: Not Given Assessment and Plan: R intertrochanteric hip fracture Mechanical fall COPD not in exacerbation H/o HTN Normocytic anemia Schizophrenia --Pt to go to [place] with Dr. Barba today after obtaining consent from son --Pt deemed to not have functional capacity per psych --Marti 1.8% risk for [place]/arrest; RCRI 1 --> benefits outweigh risks at this time --Continue home medications: Zyprexa 2.5mg HS Aricept 10mg qdaily Depakote 250mg BID Cogentin 0.5mg BID FEN: Fluids: Gentle hydration while NPO Electrolyte abnormalities: none today Nutrition: NPO for procedure PPX: DVT - chemical ppx on hold; scd L leg only GI - Pepcid 20mg BID Dispo: OR today Case discussed with Dr. Edwina Anthony DO - IM PGY-3 <Desmond Anthony - Last Filed: 02/22/19 23:27> - Note Progress Note: Seen and examined; agree with outlined assessment and plan. Discussed with resident and team and ortho; see my other note for my exam, etc as I was called for STAT preoperative clearance. She is stable today but did get 1U PRBC postoperatively per ortho without significant blood loss noted. Low normal blood pressures but VERY SMALL arms. Manual pressures only with PRN boluses. No significant CHF-DD suspected but overall stable. Ortho suspects another source of bleed; discussed with resident team and obtaining FOBT, etc. She denied hx GIB. No BM; if no BM tomorrow will do FOBT. Continue to follow closely <Timothy Bland - Last Filed: 02/23/19 09:38>
--- NOTE | 2019-02-22 11:37 | PN ---
Progress Note, Physician - Current Medication List Current Medications: Active Medications Benztropine Mesylate (Cogentin -) 0.5 mg PO BID [facility] Last Admin: 02/22/19 11:16 Dose: Not Given Citalopram Hydrobromide (Celexa -) 20 mg PO DAILY [facility] Last Admin: 02/22/19 11:16 Dose: Not Given Divalproex Sodium (Depakote -) 250 mg PO BID [facility] Last Admin: 02/22/19 11:17 Dose: Not Given Donepezil HCl (Aricept -) 10 mg PO DAILY [facility] Last Admin: 02/22/19 11:16 Dose: Not Given Famotidine (Pepcid -) 20 mg PO BID [facility] Last Admin: 02/22/19 11:17 Dose: Not Given Dextrose/Sodium Chloride (D5-Ns -) 1,000 mls @ 75 mls/hr IV ASDIR [facility] Last Admin: 02/22/19 05:03 Dose: 75 mls/hr Morphine Sulfate (Morphine Sulfate) 1 mg IM Q6H PRN PRN Reason: PAIN LEVEL 6-10 Olanzapine (Zyprexa -) 2.5 mg PO HS [facility] Last Admin: 02/21/19 22:39 Dose: 2.5 mg Tobramycin/Dexamethasone (Tobradex Ophthalmic Suspension -) 1 drop OU BID [facility] Last Admin: 02/22/19 11:17 Dose: Not Given - Objective Vital Signs: Vital Signs Temperature 98.0 F 02/22/19 00:18 Pulse Rate 80 02/22/19 00:18 Respiratory Rate 20 02/22/19 00:18 Blood Pressure 130/70 02/22/19 00:18 O2 Sat by Pulse Oximetry (%) 100 02/21/19 20:05 Labs: CBC, BMP 02/22/19 10:13 02/22/19 10:13 INR, PTT INR 1.34 (0.83-1.09) H 02/22/19 10:13 Problem List - Problems (1) Anemia Code(s): D64.9 - ANEMIA, UNSPECIFIED (2) Intertrochanteric fracture Assessment/Plan: ECHO: normal LVEF; severely dilated LA EKG: normal sinus rhythm; normal study. No hx chest pain, dyspnea, leg edema. BP 130/70; HR 80 bpm. From a cardiac standpoint, there are no absolute contraindications for Ms. Milligan to undergo hip fracture surgical repair, though multiple comorbidities put her at significantly increased risk for a perioperative cardiac event. I discussed her case with the orthopedic surgeon; she may require PRBCs post-op, and it is known that she was until a few days ago on clopidogrel. Code(s): S72.143A - DISPLACED INTERTROCHANTERIC FRACTURE OF UNSP FEMUR, INIT Qualifiers: Encounter type: initial encounter Fracture type: closed Fracture alignment: nondisplaced Laterality: right Qualified Code(s): S72.144A - Nondisplaced intertrochanteric fracture of right femur, initial encounter for closed fracture (3) Fall Code(s): W19.XXXA - UNSPECIFIED FALL, INITIAL ENCOUNTER
[2019-02-22] MEDS ORDERED: LIDOCAINE HCL/PF 2% SDV 5ML VIAL ONE (13:17)
[2019-02-22] MEDS ORDERED: ETOMIDATE 20 MG/10 ML AMPUL IVPUSH ONE (13:17)
[2019-02-22] MEDS ORDERED: ceFAZolin SODIUM 1 GM VIAL ONE ×2 (13:18→21:31)
[2019-02-22] MEDS ORDERED: SUCCINYLCHOLINE CHLORIDE 200 MG/10 ML SYRINGE ONE (13:18)
[2019-02-22] MEDS ORDERED: PROPOFOL 20 ML ONE (13:18)
[2019-02-22] MEDS ORDERED: DEXAMETHASONE SOD PHOSPHATE 4 MG/1 ML VIAL ONE (13:19)
[2019-02-22] MEDS ORDERED: ceFAZolin SODIUM 1 GM VIAL IVPB ONE (13:50)
--- NOTE | 2019-02-22 15:00 | OPR ---
DATE OF OPERATION: 02/22/19 TITLE OF OPERATION: RIGHT cephalomedullary nail fixation (CPT 45786) PREOPERATIVE DIAGNOSIS: RIGHT intertrochanteric hip fracture POSTOPERATIVE DIAGNOSIS: RIGHT intertrochanteric hip fracture SURGEON: Mau Barba DO CNC PROGRAMMER: Alex Jernigan DO ANESTHESIA: General anesthesia SPECIMEN (BACTERIOLOGICAL, PATHOLOGICAL OR OTHER): None PROSTHETIC DEVICE/IMPLANT: 125 degree x 10 mm x 170 mm Zach Gamma nail 10.5 x 90 mm lag screw 5 x 35 mm locking screw COMPLICATIONS: none EBL: 20 cc's INDICATIONS FOR SURGERY: Ms. Milligan is an 88 year old female who presented in the preoperative setting with a chief complaint of right hip intertrochanteric fracture. Based on their pre-injury level of activity, surgical treatment was discussed. The risks and benefits of surgery and anesthesia were discussed in detail with her health care proxy son Bryon Milligan, including but not limited to , [place], pain, bleeding, infection, scarring, damage to vessels and nerves, failure to obtain the desired result, failure to heal, failure to return to ambulation, continued pain and discomfort, fracture. Understanding the risks and benefits, her health care proxy and genny Milligan opted to proceed with surgical management. SURGEON'S NARRATIVE: Ms. Milligan was seen in the preoperative area. Their right side was marked for surgery and consent was reviewed and signed. She was then brought back to the operating room. She was transferred to the OR table. All bony prominences were well padded. A time-out was held and all team members agreed on the operative side and planned procedure. Anesthesia was then induced. Preoperative prophylactic antibiotics were indicated and Ancef 1gm were given prior to and within one hour of any incision. Sequential compression devices were placed on the contralateral extremity for the duration of the case as part of a comprehensive DVT prophylaxis protocol consisting of intraoperative SCDs, early postoperative mobilization and Lovenox 40mg SQ x 30 days for chemoprophylaxis. Under fluoroscopy, the fracture was reduced by traction and internal rotation with slight adduction. After reduction was achieved, the hip was prepped and draped in the usual sterile fashion with application of a shower curtain. A small incision was made over directly over the proximal aspect of the hip, centered over just proximal to the prominence of the tip of the greater trochanter. This was done using a 10 blade. It was carried through the skin and subcutaneous tissues. Further dissection was performed using the Workman scissors. The guide pin for the Gamma Nail System was then inserted from the tip of the greater trochanter and into the proximal femoral canal. The opening reamer was then placed over the guidepin and used to make an opening in the proximal femur. The guidepin was then removed. A 125-degree x 10mm x 170mm gamma nail was selected. The Gamma Nail was inserted into the femoral canal into its appropriate position. Using the proximal targeting device, a 1.5-cm longitudinal incision was made directly over the lateral aspect of the proximal thigh using the 10 blade, with dissection using the hemostat to the lateral femur. A guidepin for the lag screw was then inserted from the lateral femur across the fracture site and into the femoral head and its appropriate position verified using C-arm guidance in both the AP and lateral planes. After pre-drilling, a 90-mm lag screw was then inserted over the guidepin and across the fracture site for definitive fixation. The guidepin was then removed. A set screw was then inserted into the top of the nail and completed turned, then turned back a half turn. The fracture site was appropriately compressed. The proximal targeting system was then removed. Attention was then turned to placing the distal screw. The guide was adjusted and using the 10 blade an incision was made directly over the lateral aspect of the thigh, with dissection using the hemostat to the lateral femur. A guidepin for the distal locking screw was then inserted from the lateral femur across the fracture site and into the femoral shaft and its appropriate position verified using C-arm guidance in both the AP and lateral planes. After pre- drilling, a 35-mm locking screw was then inserted over the guidepin and across the nail for definitive fixation. The guidepin was then removed. Appropriate position of the interlocking screws, the lag screw, the nail, and the fracture site was verified using C-arm guidance. Attention was then turned to closure. The incisions were copiously irrigated with sterile saline. Deep tissue was closed with 0 vicryl. Subcutaneous closure was achieved with 2-0 vicryl. Skin was closed with nancy. At closure , all needle counts and sponge counts were correct. The toes were warm and well -perfused at the end of the case. Ms. Milligan was then awoken and brought to the postoperative recovery room in stable condition. There was no complications immediately apparent. Alex Rere , DO served as first press operator on the case as there were no available qualifed residents or assistants available. POSTOPERATIVE PLAN - Weightbearing as tolerated RLE; PT Daily. - Pain control; minimize narcotic use - Comprehensive DVT prophylaxis consists of intraoperative SCDs, early postoperative mobilization and Lovenox for chemoprophylaxis. - Change aquacell dressing POD 5 - D/C Bolt POD 14 - Follow-up as an outpatient in my office in 2 weeks for wound check and x-rays. Mau Barba DO
[2019-02-22] MEDS ORDERED: ONDANSETRON 4 MG/2 ML VIAL IVPUSH PRN (15:05)
[2019-02-22] MEDS ORDERED: DEXTROSE 5%-NORMAL SALINE 1,000 ML IV SCH (15:15)
[2019-02-22] MEDS ORDERED: LACTATED RINGERS SOLUTION 1,000 ML IV SCH (15:15)
--- NOTE | 2019-02-22 15:46 | EKG ---
Test Reason : Blood Pressure : / mmHG Vent. Rate : 090 BPM Atrial Rate : 090 BPM P-R Int : 144 ms QRS Dur : 072 ms QT Int : 416 ms P-R-T Axes : 079 022 089 degrees QTc Int : 508 ms NORMAL SINUS RHYTHM WHEN COMPARED WITH ECG OF 21-FEB-2019 10:52, NO SIGNIFICANT CHANGE WAS FOUND Confirmed by FAWAD LINARES MD ([id number]) on 02/22/2019 3:46:06 PM Referred By: ABBY JARVIS Confirmed By:FAWAD LINARES MD
--- NOTE | 2019-02-22 16:12 | PN ---
Progress Note, Physician History of Present Illness: Ms. Milligan is an 88 yo female w/ pmh of HTN, COPD, GERD, and schizophrenia transferred from [facility] where she is a resident for evaluation of R hip injury. Patient reportedly fell while getting ready this morning and hurt her R hip. Reports pain at site however has no other complaints at this time. Denies any head injury or LOC. Denies other symptoms at this time. The patient denies chest pain, shortness of breath, headache and dizziness. Denies fever, chills, nausea, vomit, diarrhea and constipation. Denies dysuria, frequency, urgency and hematuria. - Current Medication List Current Medications: Active Medications Benztropine Mesylate (Cogentin -) 0.5 mg PO BID [facility] Citalopram Hydrobromide (Celexa -) 20 mg PO DAILY [facility] Divalproex Sodium (Depakote -) 250 mg PO BID [facility] Donepezil HCl (Aricept -) 10 mg PO DAILY [facility] Enoxaparin Sodium (Lovenox -) 40 mg SQ DAILY [facility] Famotidine (Pepcid -) 20 mg PO BID [facility] Fentanyl (Sublimaze Injection -) 25 mcg IVPUSH [id number] PRN PRN Reason: PAIN-PACU ORDER X 4 DOSES ONLY Lactated Ringer's (Lactated Ringers Solution) 1,000 mls @ 75 mls/hr IV ASDIR [facility]AD[facility] Cefazolin Sodium 1 gm/ (Dextrose) 50 mls @ 200 mls/hr IVPB Q8H [facility] Stop: 02/23/19 06:14 Dextrose/Sodium Chloride (D5-Ns -) 1,000 mls @ 75 mls/hr IV ASDIR MAD[facility]ON Morphine Sulfate (Morphine Sulfate) 1 mg IM Q6H PRN PRN Reason: PAIN LEVEL 6-10 Olanzapine (Zyprexa -) 2.5 mg PO HS [facility] Ondansetron HCl (Zofran Injection) 4 mg IVPUSH Q6H PRN PRN Reason: NAUSEA AND/OR VOMITING Tobramycin/Dexamethasone (Tobradex Ophthalmic Suspension -) 1 drop OU BID [facility] - Objective Vital Signs: Vital Signs Temperature 98.2 F 02/22/19 15:00 Pulse Rate 88 02/22/19 15:15 Respiratory Rate 16 02/22/19 15:15 Blood Pressure 102/60 10/28/19 15:15 O2 Sat by Pulse Oximetry (%) 100 02/22/19 15:15 Eyes: Yes: WNL, Conjunctiva Clear, EOM Intact HENT: Yes: WNL, Atraumatic, Normocephalic Neck: Yes: WNL, Supple, Trachea Midline Cardiovascular: Yes: WNL, Regular Rate and Rhythm, Murmur Respiratory: Yes: WNL, Regular, CTA Bilaterally Gastrointestinal: Yes: WNL, Normal Bowel Sounds Genitourinary: Yes: WNL Musculoskeletal: Yes: WNL Extremities: Yes: WNL Edema: No Integumentary: Yes: WNL Neurological: Yes: WNL, Alert, Oriented ...Motor Strength: WNL Psychiatric: Yes: WNL Labs: CBC, BMP 02/22/19 10:13 02/22/19 10:13 INR, PTT INR 1.34 (0.83-1.09) H 02/22/19 10:13 Problem List - Problems (1) Intertrochanteric fracture Code(s): S72.143A - DISPLACED INTERTROCHANTERIC FRACTURE OF UNSP FEMUR, INIT Qualifiers: Encounter type: initial encounter Fracture type: closed Fracture alignment: nondisplaced Laterality: right Qualified Code(s): S72.144A - Nondisplaced intertrochanteric fracture of right femur, initial encounter for closed fracture (2) Closed head injury Code(s): S09.90XA - UNSPECIFIED INJURY OF HEAD, INITIAL ENCOUNTER (3) Fall Code(s): W19.XXXA - UNSPECIFIED FALL, INITIAL ENCOUNTER (4) Knee pain, acute Code(s): M25.569 - PAIN IN UNSPECIFIED KNEE Assessment/Plan - Problems (1) Anemia Code(s): D64.9 - ANEMIA, UNSPECIFIED 10 points hct drop s/p PRBC monitor hct patient is high risks for bleeding due to beeing on Plavix (2) Intertrochanteric fracture Assessment/Plan: ECHO: normal LVEF; severely dilated LA severe mr , ms due to MAC EKG: normal sinus rhythm; normal study. No hx chest pain, dyspnea, leg edema. BP 130/70; HR 80 bpm. From a cardiac standpoint, there are no absolute contraindications for Ms. Milligan to undergo hip fracture surgical repair, though multiple comorbidities put her at significantly increased risk for a perioperative cardiac event. I discussed her case with the orthopedic surgeon; she may require PRBCs post-op, and it is known that she was until a few days ago on clopidogrel. Code(s): S72.143A - DISPLACED INTERTROCHANTERIC FRACTURE OF UNSP FEMUR, INIT Qualifiers: Encounter type: initial encounter Fracture type: closed Fracture alignment: nondisplaced Laterality: right Qualified Code(s): S72.144A - Nondisplaced intertrochanteric fracture of right femur, initial encounter for closed fracture (3) Fall Code(s): W19.XXXA - UNSPECIFIED FALL, INITIAL ENCOUNTER
[2019-02-22 16:32] LABS: BASO % 0.2 % (0-2.0); HEMOGLOBIN 10.5 GM/dL (10.7-15.3); MCH 30.4 pg (25.7-33.7); MCHC 32.8 g/dl (32.0-36.0); MEAN CELL VOLUME 92.5 fl (80-96); MEAN PLT VOLUME 8.5 fl (7.5-11.1); MONO % 5.1 % (3.8-10.2); NEUT % 90.7 % (42.8-82.8); PLATELET COUNT 109 K/MM3 (134-434); RBC 3.45 M/mm3 (3.60-5.2); RDW 14.8 % (11.6-15.6); WHITE BLOOD COUNT 10.9 K/mm3 (4.0-10.0)
[2019-02-22 17:08] LABS: BLOOD UREA NITROGEN 13.8 mg/dL (7-18); CALCIUM 8.1 mg/dL (8.5-10.1); CREATININE 0.5 mg/dL (0.55-1.3); POTASSIUM 4.5 mmol/L (3.5-5.1)
[2019-02-22] MEDS ORDERED: DEXTROSE 5%-WATER - 50 ML IVPB ONE (21:32)
[2019-02-22] MEDS ORDERED: CEFAZOLIN 1 GM in DEXTROSE 5%-WATER - 100 ML IVPB SCH (22:00)
[2019-02-22] MEDS: CEFAZOLIN 1 GM in DEXTROSE 5%-WATER - 50 ML IVPB SCH (22:02)
[2019-02-22] MEDS: OLANZapine 2.5 MG TABLET PO SCH (22:04)
[2019-02-23] MEDS ORDERED: ceFAZolin SODIUM 1 GM VIAL ONE (05:58)
[2019-02-23] MEDS ORDERED: DEXTROSE 5%-WATER - 50 ML IVPB ONE ×2 (05:58→09:56)
[2019-02-23] MEDS: CEFAZOLIN 1 GM in DEXTROSE 5%-WATER - 50 ML IVPB SCH (06:36)
[2019-02-23] MEDS ORDERED: LACTATED RINGERS SOLUTION 1,000 ML/1,000 ML INFUS.BAG IV SCH ×4 (07:15→20:00)
[2019-02-23 07:45] LABS: HEMATOCRIT 24.8 % (32.4-45.2); HEMOGLOBIN 8.4 GM/dL (10.7-15.3); MCH 30.7 pg (25.7-33.7); MCHC 33.8 g/dl (32.0-36.0); MEAN CELL VOLUME 90.9 fl (80-96); MEAN PLT VOLUME 8.7 fl (7.5-11.1); PLATELET COUNT 95 K/MM3 (134-434); RBC 2.73 M/mm3 (3.60-5.2); RETICULOCYTES 1.78 % (0.5-1.5); WHITE BLOOD COUNT 6.9 K/mm3 (4.0-10.0)
[2019-02-23 08:40] LABS: BLOOD UREA NITROGEN 13.2 mg/dL (7-18); CALCIUM 7.9 mg/dL (8.5-10.1); CREATININE 0.5 mg/dL (0.55-1.3); MAGNESIUM 1.7 mg/dL (1.8-2.4); POTASSIUM 3.9 mmol/L (3.5-5.1)
--- NOTE | 2019-02-23 08:40 | PN ---
Progress Note (short form) - Note Progress Note: ORTHOPEDIC SURGERY PROGRESS NOTE Department of Orthopedic Surgery SUBJECTIVE No acute events overnight. No complaints currently. Resting comfortably in bed. Denies chest pain, shortness of breath, or calf pain. No nausea or vomiting. Pain control difficult overnight, but improving. PHYSICAL EXAMINATION General: Currently alert and mildly confused. cooperative and no distress. Right Lower Extremity: Dressing intact, no lesions, rashes or ulcers noted. Muscle mass equal and symmetric to contralateral side. No atrophy noted. No masses or effusions noted. No tenderness to palpation. Full passive and active ROM of the knee and ankle, free from pain. EHL/TA/GS motor intact; SILT distally ; 2+ DP pulses; Cap refill brisk. Unable to SLR; Positive Log roll test. DVT Exam: No evidence of DVT seen on physical exam; No cords or calf tenderness ; No significant calf/ankle edema. Intake & Output 02/21/19 02/22/19 02/23/19 23:59 23:59 23:59 Intake Total 850 1600 Output Total 400 1020 250 Balance 450 580 -250 Intake: IV 450 1400 D5-Ns - 1,000 ml @ 75 mls 450 600 /hr IV ASDIR MADYSON Rx#: [id number] Oral 400 200 Output: Urine 400 1000 250 Kunz 400 600 250 Estimated Blood Loss 20 Other: Voiding Method Indwelling Catheter Diaper Indwelling Catheter Bowel Movement No No Weight 102 lb 3.2 oz Height 5 ft 4 in Body Mass Index (BMI) 17.5 Weight Measurement Method Built in [facility] Weight Measurement Method Estimated by Staff Active Medications Generic Name Dose Route Start Last Admin Trade Name Freq PRN Reason Stop Dose Admin Benztropine Mesylate 0.5 mg 02/22/19 22:00 02/22/19 22:03 Cogentin - PO 0.5 mg BID [facility]AD[facility] Administration Citalopram Hydrobromide 20 mg 02/23/19 10:00 Celexa - PO DAILY [facility] Divalproex Sodium 250 mg 02/22/19 22:00 02/22/19 22:04 Depakote - PO 250 mg BID [facility] Administration Donepezil HCl 10 mg 02/23/19 10:00 Aricept - PO DAILY [facility] Enoxaparin Sodium 40 mg 02/23/19 10:00 Lovenox - SQ DAILY [facility] Famotidine 20 mg 02/22/19 22:00 02/22/19 22:04 Pepcid - PO 20 mg BID [facility] Administration Fentanyl 25 mcg 02/22/19 15:05 Sublimaze Injection - IVPUSH [id number] PRN PAIN-PACU ORDER X 4 DOSES ONLY Lactated Ringer's 1,000 mls @ 75 mls/hr 02/22/19 15:15 02/22/19 22:02 Lactated Ringers Solution IV 75 mls/hr ASDIR MADYSON Administration Morphine Sulfate 1 mg 02/22/19 15:15 Morphine Sulfate IM Q6H PRN PAIN LEVEL 6-10 Olanzapine 2.5 mg 02/22/19 22:00 02/22/19 22:04 Zyprexa - PO 2.5 mg HS [facility] Administration Ondansetron HCl 4 mg 02/22/19 15:05 Zofran Injection IVPUSH Q6H PRN NAUSEA AND/OR VOMITING Tobramycin/Dexamethasone 1 drop 02/22/19 22:00 02/22/19 22:04 Tobradex Ophthalmic Suspension - OU Not Given BID [facility] Vital Signs (last) Temp Pulse Resp BP Pulse Ox 98.8 F 93 H 20 98/51 L 98 02/23/19 06:28 02/23/19 06:28 02/23/19 06:28 02/23/19 06:28 02/22/19 17:58 Laboratory (coagulation) PT with INR 15.80 SEC (9.7-13.0) H 02/22/19 10:13 Laboratory 02/23/19 07:15 ASSESSMENT AND PLAN Ms. Milligan is an 88 year old female s/p right hip IM nailing POD 1 - Pain control: Transition to oral pain medications, minimize narcotic use - DVT prophylaxis - Ice to Right Hip - Elevate HOB, encourage oral intake - Transfuse PRBCs as necessary - F/U AM Labs - D/C Kunz in AM today - D/C [place] POD 14 - Change Dressings POD 5 - Appreciate medical management (Nutrition optimization, decubitus precautions heel/sacrum) - PT Daily: WBAT RLE - Dispo planning All questions were answered. Thank you for involving our team in the care of this patient. Please call us at [phone] with questions
[2019-02-23] MEDS ORDERED: PT OWN MED DRAWER 7, Y5N ONE (09:45)
[2019-02-23] MEDS ORDERED: cefTRIAXone SODIUM 1 GM VIAL ONE (09:56)
[2019-02-23] MEDS: CITALOPRAM HYDROBROMIDE 20 MG TABLET (FP) PO SCH (09:57)
[2019-02-23] MEDS: ACETAMINOPHEN 325 MG TABLET (FP) PO PRN (09:57)
[2019-02-23] MEDS: DONEPEZIL HCL 10 MG TABLET (FP) PO SCH (09:57)
[2019-02-23] MEDS: FAMOTIDINE 20 MG TABLET PO SCH ×2 (09:58→21:28)
[2019-02-23] MEDS: BENZTROPINE MESYLATE 0.5 MG TABLET (FP) PO SCH ×2 (09:58→21:28)
[2019-02-23] MEDS: DIVALPROEX SODIUM 250 MG TABLET E.C. PO SCH ×2 (09:58→21:28)
[2019-02-23] MEDS: TOBRA 0.3%/DEXAMETH 0.1% OPHTHALMIC SUSP 2.5 ML BTL OU SCH ×2 (09:59→21:28)
[2019-02-23] MEDS ORDERED: ENOXAPARIN NA (PORCINE) 40 MG/0.4 ML DISP.SYRIN SQ SCH ×2 (10:00)
[2019-02-23] MEDS ORDERED: CEFTRIAXONE 1 GM in DEXTROSE 5%-WATER - 50 ML IVPB ONE (10:00)
--- NOTE | 2019-02-23 10:22 | PN ---
Progress Note (short form) - Note Progress Note: HPI: Pt poor historian and hard of hearing. Pt is post-operative day 1 without notable symptoms at this time. Pt denies being dizzy,lightheaded, short of breath, chest pain, palpitations, abdominal pain at this time. Pt was noted to have low BP, however pt is very frail appearing/cachectic and even manual cuff size is normal. Pt remains mentating at baseline. 02/22/19 09:00 Temperature 98.8 F Pulse Rate 87 Respiratory 20 Rate Blood Pressure 104/73 PE: GEN: Frail, hearing loss, oriented x2, no acute distress HEENT: Nc/AT, INDIRA, MMM LUNG: Diminished breath sounds b/l, no overt wheezing, 2LNC with titration to RA 96% while resting in bed CARD: RRR no murmurs ABD: Soft, Nt/Nd, normoactive BS RECTAL: External hemorrhoid noted, no masses or internal hemorrhoids appreciated , sphincter tone normal, stool brown without any carmen blood EXT: Immobilizer and wrap in place without notable bleeding/drainage from site. aROm distal to fracture intact, strong distal pulses b/l, cap refill <2 CBC, BMP 02/23/19 10:50 02/23/19 07:15 Active Medications Benztropine Mesylate (Cogentin -) 0.5 mg PO BID [facility] Last Admin: 02/22/19 22:03 Dose: 0.5 mg Citalopram Hydrobromide (Celexa -) 20 mg PO DAILY [facility] Divalproex Sodium (Depakote -) 250 mg PO BID [facility] Last Admin: 02/22/19 22:04 Dose: 250 mg Donepezil HCl (Aricept -) 10 mg PO DAILY [facility] Enoxaparin Sodium (Lovenox -) 40 mg SQ DAILY [facility] Famotidine (Pepcid -) 20 mg PO BID [facility] Last Admin: 02/22/19 22:04 Dose: 20 mg Fentanyl (Sublimaze Injection -) 25 mcg IVPUSH [id number] PRN PRN Reason: PAIN-PACU ORDER X 4 DOSES ONLY Lactated Ringer's (Lactated Ringers Solution) 1,000 mls @ 75 mls/hr IV ASDIR [facility] Last Admin: 02/22/19 22:02 Dose: 75 mls/hr Cefazolin Sodium 1 gm/ (Dextrose) 50 mls @ 200 mls/hr IVPB Q8H [facility] Stop: 02/23/19 06:14 Last Admin: 02/22/19 22:02 Dose: 200 mls/hr Dextrose/Sodium Chloride (D5-Ns -) 1,000 mls @ 75 mls/hr IV ASDIR [facility] Last Admin: 02/22/19 20:33 Dose: Not Given Morphine Sulfate (Morphine Sulfate) 1 mg IM Q6H PRN PRN Reason: PAIN LEVEL 6-10 Olanzapine (Zyprexa -) 2.5 mg PO HS [facility] Last Admin: 02/22/19 22:04 Dose: 2.5 mg Ondansetron HCl (Zofran Injection) 4 mg IVPUSH Q6H PRN PRN Reason: NAUSEA AND/OR VOMITING Tobramycin/Dexamethasone (Tobradex Ophthalmic Suspension -) 1 drop OU BID [facility] Last Admin: 02/22/19 22:04 Dose: Not Given Assessment and Plan: R intertrochanteric hip fracture Mechanical fall COPD not in exacerbation H/o HTN Normocytic anemia Lactic acidosis Schizophrenia Severe protein calorie malnutrition --stat CXR portable --BP manual yielding low BP, however pt is noted to be cachectic and unable to get cuff small enough for her size --Monitor mentation status --Lactic acid, Hemoccult ordered, repeat CBC --Monitor for other sources of bleed and f/u lab studies ordered --Continue home medications: Zyprexa 2.5mg HS Aricept 10mg qdaily Depakote 250mg BID Cogentin 0.5mg BID --UA and urine culture; straight cath if not received in reasonable amount of time --Inputs and outputs to be followed --Will have to r/o infectious course due to worsening thrombocytopenia, low- grade temps. All of this can be reactive, but will have due diligence to r/o FEN: Fluids: Electrolyte abnormalities: none today Nutrition: PPX: DVT - chemical ppx on hold; scd L leg only GI - Pepcid 20mg BID Dispo: close monitoring of hemodynamics Case discussed with Dr. Edwina Anthony, DO - IM PGY-3 <Desmond Anthony - Last Filed: 02/23/19 22:53> - Note Progress Note: ATTENDING PHYSICIAN STATEMENT I saw and evaluated the patient. I reviewed the resident's note and discussed the case with the resident. I agree with the resident's findings and plan as documented. Seen and examined; no new complaints. Reviewed chart. Independently verified all adrian resident Hx and PE findings. Independently verified and reviewed all lab and imaging findings. Spoke to ortho consutlling services regarding complain for borderline hypotension with no tachycardia overnight developing into mild tachy this mornign with low grade temps (not quite fevers) in postoperative setting in a patient with non-negligible risk factors. She has no complaints and is mentating well in terms of hospitalization. No bleeding evident. Rectal exam negative for blood or melena and FOBT negative Iron studies reveal iron deficiency and likely component of chronic disease appreciated. Will need supplementation but will avoid PO iron in this setting. Thrombocytopenia noted and CBC repeated to ensure validity; continues to be appreciated with >50% rodrigo. Heme consulted and discussed case. Borderline lactate (2.5 noted) alongside BNP elevation; she has LVH with no known outlflow tract obstruction but her fluid status is difficult to elucidate. I spoke with Dr. Triana in ICU to assess pateint as there was concern whether the patient owuld continue to be stable on the floor. Pending documentation; appreciate consultation from ICU team. Repeated cultures and pending UA. If no urine made should bladder scan and straight cath. Blood ordered by ortho and is on hold; will XF if falls further as indicated by kiran.s Appreciate expert management from all services and care from nursing. 10 sys ROS done and negative aside from HPI PMH, PSH, FH, SH reviewed VS labs and imaging reviewed NAD, AAO, resting in bed NC AT EOMI PERRLA Neurovascularly intact; indicated leg short/ext. rotated NT ND +BS CN2-12 wnl, no fnd HR wnl, no fnd Lungs CTAB, w/ sym exp Normal mood, appropriate behavior. 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 EKG reviewed ASSESSMENT AND PLAN: Patient presents with fracture and has acute anemia, thrombocytopenia. no acute bleed noted. Checking anemia labs, consider LDH and consulting hematology. Asked ICU to evaluate as concern for decompensation on the floor. USE MANUAL CUFF FOR BP as she has small arms and requires checks with child size cuff. Placed on incentive spirometry and investigating the cause of postoperative near fevers. Overall 45 minutes spent in the care of this patient. Overall problems include: -Hip fx s/p operative repair, postop care per consulting -Acute on chronic anemia with likely iron deficiency and chronic disease components, r/o chronic blood loss anemia *repeat wound checks requested given plavix exposure preoperative, no bleeding noted now. *negative GIB workup; iron replacement in near future given findings. Avoid IV Fe if acure infection. -Acute thrombocytopenia -Calculate 4T score and r/o HIT -Potential for postop fevers (Culture, empiric ceftriaxone and consider ID consult if suspicion of resistent organisms or complicated infection) -Mechanical fall -COPD not in exacerbation -H/o HTN -Normocytic anemia -Lactic acidosis -Schizophrenia -Severe protein calorie malnutrition -MCI (deemed capacity by psych) Full Code Discussed at length with consutling services. <Timothy Bland - Last Filed: 02/24/19 00:40>
--- NOTE | 2019-02-23 11:00 | PN ---
Progress Note (short form) - Note Progress Note: Anesthesia Post Op Note Pt awake alert in bed Pt denies n/v, no puritis Kunz in situ, no ambulation yet Reports minimal pain VSS no apparent anesthesia compliactions Cr Steinberg.
[2019-02-23 11:15] LABS: BASO % 0.3 % (0-2.0); HEMOGLOBIN 8.2 GM/dL (10.7-15.3); LYMPH % 15.6 % (8-40); MCH 30.3 pg (25.7-33.7); MCHC 32.8 g/dl (32.0-36.0); MEAN CELL VOLUME 92.4 fl (80-96); MEAN PLT VOLUME 9.2 fl (7.5-11.1); MONO % 10.1 % (3.8-10.2); PLATELET COUNT 95 K/MM3 (134-434); RDW 15.2 % (11.6-15.6); WHITE BLOOD COUNT 7.2 K/mm3 (4.0-10.0)
--- NOTE | 2019-02-23 14:38 | CONSULT ---
Consultation: REQUESTING PROVIDER: CONSULT REQUEST: ICU HISTORY OF PRESENT ILLNESS: Filomena Milligan is a 88yF w PMHx of HTN, COPD, GERD, and schizophrenia from [facility] presenting w R hip pain s/p fall. Patient fell while getting ready this morning and hurt her R hip. Denies head injury or LOC. POD #1 R cephalomedullary nail fixation for R intertrochenteric fracture, received 1u pRBC. Today, spiked fever temp 100.8, tachycardic 104, hypotensive BP 96/52, elevated lactate 2.3. Given rocephin, 500mL LR bolus, tylenol. CXR shows clear lung peña. Currently complaining of dry cough and R hip pain at surgical site. REVIEW OF SYSTEMS: CONSTITUTIONAL: + fever Absent: chills, diaphoresis, generalized weakness, malaise HEENT: Absent: rhinorrhea, nasal congestion, throat pain, throat swelling, difficulty swallowing, mouth swelling, ear pain, eye pain, visual changes CARDIOVASCULAR: Absent: chest pain, palpitations, lightheadedness, peripheral edema RESPIRATORY: + cough Absent: shortness of breath, wheezing, GASTROINTESTINAL: Absent: abdominal pain, abdominal distension, nausea, vomiting, diarrhea, constipation GENITOURINARY: Absent: dysuria, frequency, urgency, hesitancy MUSCULOSKELETAL: Absent: myalgia, arthralgia SKIN: Absent: rash, itching HEMATOLOGIC/IMMUNOLOGIC: Absent: easy bleeding, easy bruising ENDOCRINE: Absent: unexplained weight gain, unexplained weight loss, heat intolerance, cold intolerance NEUROLOGIC: Absent: headache, dizziness PSYCHIATRIC: Absent: anxiety, depression PHYSICAL EXAMINATION Vital Signs - 24 hr 02/22/19 02/22/19 02/22/19 15:00 15:15 15:30 Temperature 98.2 F Pulse Rate 86 88 86 Respiratory 16 16 16 Rate Blood Pressure 141/81 102/60 129/72 O2 Sat by Pulse 100 100 98 Oximetry (%) 02/22/19 02/22/19 02/22/19 15:45 16:00 16:15 Temperature Pulse Rate 88 88 87 Respiratory 16 16 16 Rate Blood Pressure 128/58 L 104/65 100/60 O2 Sat by Pulse 98 98 100 Oximetry (%) 02/22/19 02/22/19 02/22/19 16:30 16:45 17:00 Temperature 98.0 F Pulse Rate 87 86 84 Respiratory 16 16 16 Rate Blood Pressure 90/52 L 92/50 L 98/60 O2 Sat by Pulse 99 99 95 Oximetry (%) 02/22/19 02/23/19 02/23/19 17:58 06:28 09:00 Temperature 98.6 F 98.8 F Pulse Rate 86 93 H Respiratory 20 20 19 Rate Blood Pressure 121/70 98/51 L O2 Sat by Pulse 98 95 Oximetry (%) 02/23/19 10:00 Temperature 100.8 F H Pulse Rate 104 H Respiratory 19 Rate Blood Pressure 89/51 L O2 Sat by Pulse Oximetry (%) GENERAL: Awake, alert, and fully oriented, in no acute distress. HEAD: Normal with no signs of trauma. EYES: Pupils equal, round and reactive to light EARS, NOSE, THROAT: Dry mucous membranes. LUNGS: Reduced breath sounds ly, coarse sounds w crackles bilateral lung bases. No wheezes. No accessory muscle use. HEART: Regular rate and rhythm, normal S1 and S2 without murmur, rub or gallop. ABDOMEN: Soft, nontender, not distended, normoactive bowel sounds, no guarding, no rebound, no masses. No hepatomegaly or splenomegaly. EXTREMITIES: Warm. Cap refill 2 seconds. No pedal edema. NEUROLOGICAL: A&Ox3. Normal speech. Hard of hearing SKIN: Warm, dry, normal turgor, no rashes or lesions noted. Laboratory Results - last 24 hr 02/21/19 02/22/19 02/22/19 11:12 09:35 15:40 WBC 10.9 H RBC 3.45 L Hgb 10.5 L Hct 32.0 L MCV 92.5 MCH 30.4 MCHC 32.8 RDW 14.8 Plt Count 109 L D MPV 8.5 Absolute Neuts (auto) 9.9 H Neutrophils % 90.7 H Lymphocytes % 4.0 L D Monocytes % 5.1 Eosinophils % 0.0 Basophils % 0.2 Nucleated RBC % 0 Retic Count Sodium Potassium Chloride Carbon Dioxide Anion Gap BUN Creatinine Est GFR (CKD-EPI)AfAm Est GFR (CKD-EPI)NonAf Random Glucose Lactic Acid Calcium Magnesium Iron TIBC Iron Saturation Unsaturated IBC Ferritin LD Total B-Natriuretic Peptide Stool Occult Blood Negative Blood Type A POSITIVE Antibody Screen Negative Crossmatch See Detail 02/22/19 02/23/19 02/23/19 15:40 07:15 07:15 WBC 6.9 RBC 2.73 L Hgb 8.4 L Hct 24.8 L D MCV 90.9 MCH 30.7 MCHC 33.8 RDW 15.0 Plt Count 95 L MPV 8.7 Absolute Neuts (auto) Neutrophils % Lymphocytes % Monocytes % Eosinophils % Basophils % Nucleated RBC % Retic Count 1.78 H Sodium 136 139 Potassium 4.5 3.9 Chloride 107 105 Carbon Dioxide 21 28 Anion Gap 8 5 L BUN 13.8 13.2 Creatinine 0.5 L 0.5 L Est GFR (CKD-EPI)AfAm 100.86 100.86 Est GFR (CKD-EPI)NonAf 87.02 87.02 Random Glucose 107 H 93 Lactic Acid Calcium 8.1 L 7.9 L Magnesium 1.7 L Iron 22 L TIBC 173 L Iron Saturation 12 L Unsaturated IBC 151 L Ferritin 337.6 LD Total 169 B-Natriuretic Peptide Stool Occult Blood Blood Type Antibody Screen Crossmatch 02/23/19 02/23/19 02/23/19 10:50 10:50 10:50 WBC 7.2 RBC 2.70 L Hgb 8.2 L Hct 25.0 L MCV 92.4 MCH 30.3 MCHC 32.8 RDW 15.2 Plt Count 95 L MPV 9.2 Absolute Neuts (auto) 5.3 Neutrophils % 74.0 Lymphocytes % 15.6 D Monocytes % 10.1 D Eosinophils % 0.0 Basophils % 0.3 Nucleated RBC % 0 Retic Count Sodium Potassium Chloride Carbon Dioxide Anion Gap BUN Creatinine Est GFR (CKD-EPI)AfAm Est GFR (CKD-EPI)NonAf Random Glucose Lactic Acid 2.3 H* Calcium Magnesium Iron TIBC Iron Saturation Unsaturated IBC Ferritin LD Total B-Natriuretic Peptide 2377.8 H Stool Occult Blood Blood Type Antibody Screen Crossmatch Active Medications Generic Name Dose Route Start Last Admin Trade Name Freq PRN Reason Stop Dose Admin Acetaminophen 650 mg 02/23/19 09:45 02/23/19 09:57 Tylenol - PO 650 mg Q4H PRN Administration PAIN LEVEL 4 - 6 Benztropine Mesylate 0.5 mg 02/22/19 22:00 02/23/19 09:58 Cogentin - PO 0.5 mg BID MADYSON Administration Citalopram Hydrobromide 20 mg 02/23/19 10:00 02/23/19 09:57 Celexa - PO 20 mg DAILY MADYSON Administration Divalproex Sodium 250 mg 02/22/19 22:00 02/23/19 09:58 Depakote - PO 250 mg BID MADYSON Administration Donepezil HCl 10 mg 02/23/19 10:00 02/23/19 09:57 Aricept - PO 10 mg DAILY MADYSON Administration Famotidine 20 mg 02/22/19 22:00 02/23/19 09:58 Pepcid - PO 20 mg BID MADYSON Administration Fentanyl 25 mcg 02/22/19 15:05 Sublimaze Injection - IVPUSH [id number] PRN PAIN-PACU ORDER X 4 DOSES ONLY Morphine Sulfate 1 mg 02/22/19 15:15 Morphine Sulfate IM Q6H PRN PAIN LEVEL 6-10 Olanzapine 2.5 mg 02/22/19 22:00 02/22/19 22:04 Zyprexa - PO 2.5 mg HS MADYSON Administration Ondansetron HCl 4 mg 02/22/19 15:05 Zofran Injection IVPUSH Q6H PRN NAUSEA AND/OR VOMITING Tobramycin/Dexamethasone 1 drop 02/22/19 22:00 02/23/19 09:59 Tobradex Ophthalmic Suspension - OU 1 drop BID MADYSON Administration ASSESSMENT/PLAN: Filomena Milligan is a 88yF w PMHx of HTN, COPD, GERD, and schizophrenia from [facility] presenting w R hip pain s/p fall, POD #1 R cephalomedullary nail fixation for R intertrochenteric fracture. Today, spiked fever temp 100.8, tachycardic 104, hypotensive BP 89/51, elevated lactate 2.3. Given rocephin, 500mL LR bolus, tylenol. CXR shows clear lung peña. Currently complaining of dry cough and R hip pain at surgical site. #Sepsis #Acute blood loss anemia #R intertrochenteric fracture s/p cephalomedullary nail fixation POD1 #hx HTN - pt appears dry - recommend IV fluids - CXR unremarkable - pending blood/urine cx - IV antibiotics - currently hypotensive MAP 70s, hold home antihypertensive meds - monitor CBC, FOBT (-) - monitor BP - trend lactic acid - currently sat 96% on 2L NC, wean as tolerated Dispo - continue monitor on floor If there is a change in status, please contact ICU team. Thank you for your consult Visit type - Emergency Visit Emergency Visit: Yes ED Registration Date: 02/21/19 Care time: The patient presented to the Emergency Department on the above date and was hospitalized for further evaluation of their emergent condition. - New Patient This patient is new to me today: Yes Date on this admission: 02/24/19 - Critical Care Critical Care patient: Yes Total Critical Care Time (in minutes): 37 Critical Care Statement: The care of this patient involved high complexity decision making to prevent further life threatening deterioration of the patient 's condition and/or to evaluate & treat vital organ system(s) failure or risk of failure. ATTENDING PHYSICIAN STATEMENT I saw and evaluated the patient. I reviewed the resident's note and discussed the case with the resident. I agree with the resident's findings and plan as documented. SUBJECTIVE: OBJECTIVE: ASSESSMENT AND PLAN:
[2019-02-23 15:02] LABS: ARTERIAL BLD GAS O2 SATURATION 94.8 % (95-98); ARTERIAL BLOOD GAS BASE EXCESS 2.2 meq/l (-2-2); ARTERIAL BLOOD GAS PCO2 46.1 mmHg (35-45); ARTERIAL BLOOD GAS PO2 77.9 mmHg (80-100); ARTERIAL BLOOD GAS pH 7.39 (7.35-7.45)
[2019-02-23 15:04] LABS: ALLENS TEST POSITIVE
--- NOTE | 2019-02-23 16:16 | CONSULT ---
Consult Consult Specialty:: Hematology and oncology Reason for Consultation:: Thrombocytopenia - History of Present Illness Chief Complaint: Hip injury History of Present Illness: The patient is an 88 yo f w/ PMH HTN, COPD, GERD, Schizophrenia who was BIBEMS from [facility] for evaluation of a hip injury. The patient is POD #1 gamma nail. Post op, the patient's platelet count was noted to be dropping from 144 - > 109 -> 95 ->95. Hematology was consulted to assist in evaluation of this drop. On interview, the patient was noted awake and alert in bed. She endorses mild pain at the surgical site, but denies any other pain. The patient denies any bleeding of easy bruising. She denies any blood problems in the past or any family history of blood disorders or cancer. - History Source History Provided By: Patient, Medical Record Limitations to Obtaining History: Dementia - Past Medical History Cardio/Vascular: Yes: HTN, Other (Carotid atrery stenosis on Plavix) Pulmonary: Yes: COPD Gastrointestinal: Yes: GERD Psych: Yes: Schizophrenia - Alcohol/Substance Use Hx Alcohol Use: No - Smoking History Smoking history: Never smoked Have you smoked in the past 12 months: No - Social History Usual Living Arrangement: Assisted Living Home Medications - Allergies Allergies/Adverse Reactions: Allergies Allergy/AdvReac Type Severity Reaction Status Date / Time No Known Allergies Allergy Verified 10/09/18 09:51 - Home Medications Home Medications: Ambulatory Orders Benztropine Mesylate [Cogentin -] 0.5 mg PO BID 11/26/16 Citalopram Hydrobromide [Citalopram HBr] 20 mg PO DAILY 11/26/16 Clopidogrel Bisulfate [Clopidogrel] 75 mg PO DAILY 11/26/16 Divalproex [Depakote -] 250 mg PO BID 11/26/16 Donepezil HCl [Aricept -] 10 mg PO DAILY 11/26/16 Famotidine [Pepcid -] 20 mg PO BID 11/26/16 Olanzapine [Zyprexa -] 2.5 mg PO HS 11/26/16 Review of Systems - Review of Systems Constitutional: denies: Chills, Fever Cardiovascular: denies: Chest Pain, Palpitations, Shortness of Breath Respiratory: denies: Cough, SOB, SOB on Exertion Gastrointestinal: denies: Abdominal Pain, Rectal Bleeding, Vomiting Blood Genitourinary: denies: Hematuria Musculoskeletal: reports: Joint Pain (hip pain at the surgical site) Neurological: denies: Dizziness, Numbness Physical Exam Vital Signs: Vital Signs Temperature 99.6 F 02/23/19 14:58 Pulse Rate 105 H 02/23/19 14:58 Respiratory Rate 18 02/23/19 14:58 Blood Pressure 81/43 L 02/23/19 14:58 O2 Sat by Pulse Oximetry (%) 95 02/23/19 09:00 Constitutional: Yes: Well Nourished, No Distress, Calm HENT: Yes: Atraumatic, Normocephalic Cardiovascular: Yes: Regular Rate and Rhythm, Gallop, Murmur, S1, S2. No: Rub Respiratory: Yes: Regular, Other (coarse inspiratory crackles b/l) Gastrointestinal: Yes: Normal Bowel Sounds, Soft Edema: No Wound/Incision: Yes: Dressing Dry and Intact Neurological: Yes: Alert Psychiatric: Yes: Alert Labs: CBC, BMP 02/23/19 10:50 02/23/19 07:15 Assessment/Plan The patient is an 88 yo f w/ PMH HTN, COPD, GERD, Schizophrenia who was BIBEMS from [facility] for evaluation of a hip injury. The patient is POD #1 gamma nail. Post op, the patient's platelet count was noted to be dropping from 144 - > 109 -> 95 ->95. Hematology was consulted to assist in evaluation of this drop. The patient is an 88 yo f w/ PMH HTN, COPD, GERD, Schizophrenia who was BIBEMS from [facility] for evaluation of a hip injury. The patient is POD #1 gamma nail. Post op, the patient's platelet count was noted to be dropping from 144 - > 109 -> 95 ->95. Hematology was consulted to assist in evaluation of this drop. #thrombocytopenia likely 2/2 consumption post op vs sign of early infection -POD #1 gamma nail -Patient w/ low grade fever to 100.8 -CXR negative -patient with a lactic acidosis -Iron studies indicative of deficiency -ordered B12, folat, TSH -Septic workup pending, f/u results -suggest ID consult -monitor CBC for now
[2019-02-23 16:39] LABS: INR 1.4 (0.83-1.09); PROTHROMBIN TIME (PATIENT) 16.6 SEC (9.7-13.0)
[2019-02-23 19:36] LABS: EPI CELLS 4.4 /HPF (0-5/HPF); HYALINE CASTS 32 /lpf (0-8); PH,URINE 5.5 (5.0-8.0); URINE APPEARANCE CLEAR; URINE BACTERIA 159.8 /hpf (NEGATIVE); URINE BILIRUBIN NEGATIVE (NEGATIVE); URINE COLOR YELLOW; URINE GLUCOSE (UA) NEGATIVE (NEGATIVE); URINE KETONE TRACE (NEGATIVE); URINE LEUK ESTERASE 1+ (NEGATIVE); URINE NITRITE NEGATIVE (NEGATIVE); URINE PROTEIN NEGATIVE (NEGATIVE); URINE RBC 1 /hpf (0-4); URINE WBC 31 /hpf (0-5)
--- NOTE | 2019-02-23 21:08 | PN ---
Teaching Attending Note Name of Resident: Saul Murillo ATTENDING PHYSICIAN STATEMENT I saw and evaluated the patient. I reviewed the resident's note and discussed the case with the resident. I agree with the resident's findings and plan as documented. ASSESSMENT AND PLAN: 88 yo f w/ PMH HTN, COPD, GERD, Schizophrenia who was BIBEMS from [facility] for evaluation of a hip injury. The patient is POD #1 gamma nail. Post op, the patient's platelet count was noted to be dropping from 144 -> 109 -> 95 ->95. Hematology was consulted to assist in evaluation of this drop. #thrombocytopenia likely 2/2 consumption post op vs sign of early infection -POD #1 gamma nail -Patient w/ low grade fever to 100.8 -CXR negative -patient with a lactic acidosis -ordered B12, folat, TSH -Septic workup pending, f/u results -suggest ID consult -monitor CBC for now
[2019-02-23] MEDS: OLANZapine 2.5 MG TABLET PO SCH (21:28)
--- NOTE | 2019-02-23 21:38 | PN ---
Progress Note, Physician Chief Complaint: A&Ox3; denies chest pain or dyspnea; +moderate pain at surgical site (right hip) . History of Present Illness: The patient is an 88 year old black female with a past medical history of schizophrenia, COPD, HTN, and GERD here today from [facility] for evaluation of right thigh/hip pain. The patient reports that she fell today and injured her right thigh, unable to ambulate. She states that her roommate helped her up and denies any head strike or loss of consciousness. +Plavix use. no other AC. Patient denies headache, lightheadedness. Denies fever, chills. Denies chest pain, shortness of breath. Denies nausea, vomiting, diarrhea, abdominal pain. denies prodromal sx leading to fall. Allergies: NKA - Current Medication List Current Medications: Active Medications Acetaminophen (Tylenol -) 650 mg PO Q4H PRN PRN Reason: PAIN LEVEL 4 - 6 Last Admin: 02/23/19 09:57 Dose: 650 mg Benztropine Mesylate (Cogentin -) 0.5 mg PO BID [facility] Last Admin: 02/23/19 21:28 Dose: 0.5 mg Citalopram Hydrobromide (Celexa -) 20 mg PO DAILY [facility] Last Admin: 02/23/19 09:57 Dose: 20 mg Divalproex Sodium (Depakote -) 250 mg PO BID [facility] Last Admin: 02/23/19 21:28 Dose: 250 mg Donepezil HCl (Aricept -) 10 mg PO DAILY [facility] Last Admin: 02/23/19 09:57 Dose: 10 mg Famotidine (Pepcid -) 20 mg PO BID [facility] Last Admin: 02/23/19 21:28 Dose: 20 mg Fentanyl (Sublimaze Injection -) 25 mcg IVPUSH [id number] PRN PRN Reason: PAIN-PACU ORDER X 4 DOSES ONLY Lactated Ringer's (Lactated Ringers Solution) 1,000 ml in 1,000 mls @ 100 mls/ hr IV ASDIR [facility] Stop: 02/24/19 05:59 Morphine Sulfate (Morphine Sulfate) 1 mg IM Q6H PRN PRN Reason: PAIN LEVEL 6-10 Olanzapine (Zyprexa -) 2.5 mg PO HS [facility] Last Admin: 10/29/19 21:28 Dose: 2.5 mg Ondansetron HCl (Zofran Injection) 4 mg IVPUSH Q6H PRN PRN Reason: NAUSEA AND/OR VOMITING Tobramycin/Dexamethasone (Tobradex Ophthalmic Suspension -) 1 drop OU BID [facility] Last Admin: 02/23/19 21:28 Dose: 1 drop - Objective Vital Signs: Vital Signs Temperature 99.6 F 02/23/19 14:58 Pulse Rate 105 H 02/23/19 14:58 Respiratory Rate 18 02/23/19 14:58 Blood Pressure 81/43 L 02/23/19 14:58 O2 Sat by Pulse Oximetry (%) 95 02/23/19 09:00 Constitutional: Yes: Calm Eyes: Yes: WNL HENT: Yes: Other (hard of hearing) Neck: Yes: WNL Cardiovascular: Yes: Tachycardia, S1, S2 Gastrointestinal: Yes: Soft ...Rectal Exam: Yes: Deferred Genitourinary: No: Anuria Musculoskeletal: Yes: Muscle Weakness Extremities: Yes: Cool Edema: Yes Edema: LLE: Trace, RLE: Trace Peripheral Pulses WNL: Yes Integumentary: Yes: WNL Neurological: Yes: Alert, Oriented, Weakness Psychiatric: Yes: Alert, Oriented Labs: CBC, BMP 02/23/19 10:50 02/23/19 07:15 INR, PTT INR 1.40 (0.83-1.09) H 02/23/19 14:30 Abnormal Lab Results 02/21/19 02/25/19 02/25/19 11:12 06:10 06:10 RBC 2.28 L Hgb 6.9 L* Hct 21.1 L Plt Count 90 L Carbon Dioxide 33 H Anion Gap 3 L BUN 18.4 H Creatinine 0.4 L Calcium 8.0 L Magnesium 1.6 L Crossmatch See Detail 02/25/19 11:20 RBC Hgb Hct Plt Count Carbon Dioxide Anion Gap BUN Creatinine Calcium Magnesium Crossmatch See Detail - ....Imaging Chest X-ray: Image Reviewed EKG: Image Reviewed Problem List - Problems (1) Anemia Code(s): D64.9 - ANEMIA, UNSPECIFIED (2) Intertrochanteric fracture Assessment/Plan: ECHO: normal LVEF; severely dilated LA; severe concentric LVH. EKG: normal sinus rhythm; normal study. No hx chest pain, dyspnea, leg edema. BP 130/70; HR 80 bpm. From a cardiac standpoint, there are no absolute contraindications for Ms. Milligan to undergo hip fracture surgical repair, though multiple comorbidities put her at significantly increased risk for a perioperative cardiac event. I discussed her case with the orthopedic surgeon; she may require PRBCs post-op, and it is known that she was until a few days ago on clopidogrel. Code(s): S72.143A - DISPLACED INTERTROCHANTERIC FRACTURE OF UNSP FEMUR, INIT Qualifiers: Encounter type: initial encounter Fracture type: closed Fracture alignment: nondisplaced Laterality: right Qualified Code(s): S72.144A - Nondisplaced intertrochanteric fracture of right femur, initial encounter for closed fracture (3) Fall Code(s): W19.XXXA - UNSPECIFIED FALL, INITIAL ENCOUNTER
[2019-02-23] MEDS: MORPHINE SULFATE 2 MG/ML VIAL IM PRN (21:51)
--- NOTE | 2019-02-24 07:25 | PN ---
Progress Note (short form) - Note Progress Note: HPI: Pt poor historian and hard of hearing. Pt is post-operative day 2 without notable symptoms at this time. Pt's CXR today with congestive changes. Pt looks comfortably clinically however. Vital Signs Temperature 98.2 F 02/24/19 06:49 Pulse Rate 115 H 02/24/19 06:49 Respiratory Rate 20 02/24/19 06:49 Blood Pressure 98/57 L 02/24/19 06:49 O2 Sat by Pulse Oximetry (%) 95 02/23/19 09:00 PE: GEN: Frail, hearing loss, oriented x2, no acute distress HEENT: Nc/AT, INDIRA, MMM LUNG: Diminished breath sounds at bases today. No wheezes, good inspiratory effort. 2LNC 97% CARD: RRR no murmurs appreciated ABD: Soft, Nt/Nd, normoactive BS, no guarding EXT: Immobilizer and wrap in place without notable bleeding/drainage from site. cap refill <2 sec Active Medications Benztropine Mesylate (Cogentin -) 0.5 mg PO BID [facility] Last Admin: 02/22/19 22:03 Dose: 0.5 mg Citalopram Hydrobromide (Celexa -) 20 mg PO DAILY [facility] Divalproex Sodium (Depakote -) 250 mg PO BID [facility] Last Admin: 02/22/19 22:04 Dose: 250 mg Donepezil HCl (Aricept -) 10 mg PO DAILY [facility] Enoxaparin Sodium (Lovenox -) 40 mg SQ DAILY [facility] Famotidine (Pepcid -) 20 mg PO BID [facility] Last Admin: 02/22/19 22:04 Dose: 20 mg Fentanyl (Sublimaze Injection -) 25 mcg IVPUSH [id number] PRN PRN Reason: PAIN-PACU ORDER X 4 DOSES ONLY Lactated Ringer's (Lactated Ringers Solution) 1,000 mls @ 75 mls/hr IV ASDIR [facility] Last Admin: 02/22/19 22:02 Dose: 75 mls/hr Cefazolin Sodium 1 gm/ (Dextrose) 50 mls @ 200 mls/hr IVPB Q8H [facility] Stop: 02/23/19 06:14 Last Admin: 02/22/19 22:02 Dose: 200 mls/hr Dextrose/Sodium Chloride (D5-Ns -) 1,000 mls @ 75 mls/hr IV ASDIR [facility] Last Admin: 02/22/19 20:33 Dose: Not Given Morphine Sulfate (Morphine Sulfate) 1 mg IM Q6H PRN PRN Reason: PAIN LEVEL 6-10 Olanzapine (Zyprexa -) 2.5 mg PO HS [facility] Last Admin: 02/22/19 22:04 Dose: 2.5 mg Ondansetron HCl (Zofran Injection) 4 mg IVPUSH Q6H PRN PRN Reason: NAUSEA AND/OR VOMITING Tobramycin/Dexamethasone (Tobradex Ophthalmic Suspension -) 1 drop OU BID [facility] Last Admin: 02/22/19 22:04 Dose: Not Given Assessment and Plan: R intertrochanteric hip fracture Mechanical fall COPD not in exacerbation H/o HTN Normocytic anemia Lactic acidosis Schizophrenia Severe protein calorie malnutrition --Continue manual BP --Encourage use of incentive spirometry --Monitor mentation status --LA increasing through night: possibly mixed picture of Type A and Type B -- --Continue home medications: Zyprexa 2.5mg HS Aricept 10mg qdaily Depakote 250mg BID Cogentin 0.5mg BID --UA with notably pyuria and bacteruria: f/u cultures --Continue Rocephin 1gm for now --Inputs and outputs to be followed FEN: Fluids: Avoid; let fluid balance equalize today Electrolyte abnormalities: f/u for pending labs Nutrition: Regular PPX: DVT - chemical ppx on hold; scd L leg only GI - Pepcid 20mg BID Dispo: close monitoring of hemodynamics Case discussed with Dr. Edwina Anthony, DO - IM PGY-3 <Desmond Anthony - Last Filed: 02/24/19 21:13> - Note Progress Note: Seen and examined; no new complaints. Reviewed chart. Independently verified all adrian resident Hx and PE findings. Independently verified and reviewed all lab and imaging findings. POD#2 Gamma Nail 10 sys ROS done and negative aside from HPI PMH, PSH, FH, SH reviewed VS labs and imaging reviewed NAD, AAO, resting in bed NC AT EOMI PERRLA Neurovascularly intact; indicated leg short/ext. rotated NT ND +BS CN2-12 wnl, no fnd HR wnl, no fnd Lungs CTAB, w/ sym exp Normal mood, appropriate behavior. No bleeding or bruising observed around the operative site Admission imaging and diagnostics reviewed Echo reviewed; ?MS 2/2 MAC, severe LVH with no outflow obstruction, ?DD, sys fn wnl. EKG reviewed ASSESSMENT AND PLAN: Patient presents for hip fracture and is noted to be anemic postoperatively as well as with potential infection; on empiric ceftriaxone and monitoring. Overall problems include: -Hip fx s/p operative repair, postop care per consulting -Acute on chronic anemia with likely iron deficiency and chronic disease components, r/o chronic blood loss anemia *repeat wound checks requested given plavix exposure preoperative, no bleeding noted now. *negative GIB workup prior; start iron replacement prior to DC -Acute thrombocytopenia -Hematology consulted; discussed with service and will abide by recommendations -Postop fevers; less likely PNA, FU Ucx and ID input. -Mechanical fall -COPD not in exacerbation -H/O HTN -Normocytic anemia -Lactic acidosis -Schizophrenia -Severe protein calorie malnutrition -MCI (deemed capacity by psych) Full Code Discussed at length with consutling services. <Timothy Bland - Last Filed: 02/25/19 12:56>
[2019-02-24 08:35] LABS: HEMATOCRIT 24.1 % (32.4-45.2); HEMOGLOBIN 8.2 GM/dL (10.7-15.3); MCHC 33.8 g/dl (32.0-36.0); MEAN CELL VOLUME 91.5 fl (80-96); PLATELET COUNT 86 K/MM3 (134-434); RBC 2.64 M/mm3 (3.60-5.2); RDW 15.2 % (11.6-15.6); WHITE BLOOD COUNT 9.2 K/mm3 (4.0-10.0)
[2019-02-24 09:10] LABS: INR 1.36 (0.83-1.09); PROTHROMBIN TIME (PATIENT) 16.1 SEC (9.7-13.0)
[2019-02-24 09:35] LABS: ALBUMIN 2.4 g/dl (3.4-5.0); BILIRUBIN,TOTAL 0.5 mg/dL (0.2-1); CALCIUM 8.3 mg/dL (8.5-10.1); CREATININE 0.5 mg/dL (0.55-1.3); MAGNESIUM 1.7 mg/dL (1.8-2.4); PHOSPHOROUS 2.8 mg/dL (2.5-4.9); POTASSIUM 4.3 mmol/L (3.5-5.1); TOT PROT 5.6 g/dl (6.4-8.2)
[2019-02-24 09:38] LABS: ERYTHROCYTE SEDIMENTATION RATE 34 mm/hr (0-30)
[2019-02-24 09:42] LABS: RETICULOCYTES 1.47 % (0.5-1.5)
[2019-02-24] MEDS ORDERED: PT OWN MED DRAWER 7, Y5N ONE ×3 (10:22→21:36)
--- NOTE | 2019-02-24 10:29 | PN ---
Progress Note (short form) - Note Progress Note: Hematology and Oncology follow up Subjective: Patient seen and examined at bedside. No new complaints. no events overnight. Objective: Vital Signs Temperature 98.7 F 02/24/19 14:12 Pulse Rate 109 H 02/24/19 14:12 Respiratory Rate 20 02/24/19 14:12 Blood Pressure 100/58 L 02/24/19 14:12 O2 Sat by Pulse Oximetry (%) 95 02/24/19 09:00 Physical Exam: Gen: patient well appearing, found lying in bed awake and alert. Lungs: CTA b/l down to the bases Heart: rrr, s1, s2 heard. No murmurs, gallops, rubs Abdomen: soft, nontender, not distended. Bowel sounds heard. Home Medications Medication Instructions Recorded Benztropine Mesylate [Cogentin -] 0.5 mg PO BID 11/26/16 Citalopram Hydrobromide 20 mg PO DAILY 11/26/16 [Citalopram HBr] Clopidogrel Bisulfate [Clopidogrel] 75 mg PO DAILY 11/26/16 Divalproex [Depakote -] 250 mg PO BID 11/26/16 Donepezil HCl [Aricept -] 10 mg PO DAILY 11/26/16 Famotidine [Pepcid -] 20 mg PO BID 11/26/16 Olanzapine [Zyprexa -] 2.5 mg PO HS 11/26/16 Active Medications Acetaminophen (Tylenol -) 650 mg PO Q4H PRN PRN Reason: PAIN LEVEL 4 - 6 Last Admin: 02/23/19 09:57 Dose: 650 mg Benztropine Mesylate (Cogentin -) 0.5 mg PO BID [facility] Last Admin: 02/24/19 11:29 Dose: 0.5 mg Citalopram Hydrobromide (Celexa -) 20 mg PO DAILY [facility] Last Admin: 02/24/19 11:28 Dose: 20 mg Divalproex Sodium (Depakote -) 250 mg PO BID [facility] Last Admin: 02/24/19 11:29 Dose: 250 mg Donepezil HCl (Aricept -) 10 mg PO DAILY [facility] Last Admin: 02/24/19 11:28 Dose: 10 mg Enoxaparin Sodium (Lovenox -) 40 mg SQ DAILY [facility] Famotidine (Pepcid -) 20 mg PO BID [facility] Last Admin: 02/24/19 11:30 Dose: 20 mg Fentanyl (Sublimaze Injection -) 25 mcg IVPUSH [id number] PRN PRN Reason: PAIN-PACU ORDER X 4 DOSES ONLY Ceftriaxone Sodium 1 gm/ (Dextrose) 50 mls @ 200 mls/hr IVPB DAILY [facility]; Protocol Last Admin: 02/24/19 12:56 Dose: 200 mls/hr Morphine Sulfate (Morphine Sulfate) 1 mg IM Q6H PRN PRN Reason: PAIN LEVEL 6-10 Last Admin: 02/23/19 21:51 Dose: 1 mg Olanzapine (Zyprexa -) 2.5 mg PO HS [facility] Last Admin: 02/23/19 21:28 Dose: 2.5 mg Ondansetron HCl (Zofran Injection) 4 mg IVPUSH Q6H PRN PRN Reason: NAUSEA AND/OR VOMITING Thiamine HCl (Vitamin B1 -) 100 mg PO DAILY [facility] Last Admin: 02/24/19 11:30 Dose: 100 mg Tobramycin/Dexamethasone (Tobradex Ophthalmic Suspension -) 1 drop OU BID [facility] Last Admin: 02/24/19 11:30 Dose: 1 drop Allergies Allergy/AdvReac Type Severity Reaction Status Date / Time No Known Allergies Allergy Verified 10/09/18 09:51 CBC, BMP 02/24/19 07:20 02/24/19 07:20 Assessment and plan: The patient is an 88 yo f w/ PMH HTN, COPD, GERD, Schizophrenia who was BIBEMS from [facility] for evaluation of a hip injury. The patient is POD #1 gamma nail. Post op, the patient's platelet count was noted to be dropping from 144 - > 109 -> 95 ->95. Hematology was consulted to assist in evaluation of this drop. #thrombocytopenia likely 2/2 consumption post op vs sign of early infection -POD #2 gamma nail -Patient afebrile -Lactic acid remains elevated -Iron studies indicative of deficiency -B12, TSH WNL, FOlate pending -Septic workup pending, f/u results -suggest ID consult -monitor CBC for now -No bleeding stigmata at this time; will continue to monitor
[2019-02-24] MEDS: CITALOPRAM HYDROBROMIDE 20 MG TABLET (FP) PO SCH (11:28)
[2019-02-24] MEDS: DONEPEZIL HCL 10 MG TABLET (FP) PO SCH (11:28)
[2019-02-24] MEDS: DIVALPROEX SODIUM 250 MG TABLET E.C. PO SCH ×2 (11:29→21:37)
[2019-02-24] MEDS: BENZTROPINE MESYLATE 0.5 MG TABLET (FP) PO SCH ×2 (11:29→21:37)
[2019-02-24] MEDS: TOBRA 0.3%/DEXAMETH 0.1% OPHTHALMIC SUSP 2.5 ML BTL OU SCH ×2 (11:30→21:37)
[2019-02-24] MEDS: THIAMINE HCL 100 MG TABLET (FP) PO SCH (11:30)
[2019-02-24] MEDS: FAMOTIDINE 20 MG TABLET PO SCH ×2 (11:30→21:32)
--- NOTE | 2019-02-24 11:33 | PN ---
Progress Note (short form) - Note Progress Note: ORTHOPEDIC SURGERY PROGRESS NOTE Department of Orthopedic Surgery SUBJECTIVE No acute events overnight. No complaints currently. Resting comfortably in bed. Denies chest pain, shortness of breath, or calf pain. No nausea or vomiting. Pain control difficult overnight, but improving. PHYSICAL EXAMINATION General: Currently alert and mildly confused. cooperative and no distress. Right Lower Extremity: Dressing intact, no lesions, rashes or ulcers noted. No signs of hematoma formation or drainage or infection; Muscle mass equal and symmetric to contralateral side. No atrophy noted. No masses or effusions noted. No tenderness to palpation. Full passive and active ROM of the knee and ankle, free from pain. EHL/TA/GS motor intact; SILT distally; 2+ DP pulses; Cap refill brisk. Unable to SLR; Positive Log roll test. DVT Exam: No evidence of DVT seen on physical exam; No cords or calf tenderness ; No significant calf/ankle edema. Intake & Output 02/22/19 02/23/19 02/24/19 23:59 23:59 23:59 Intake Total 1600 1350 1800 Output Total 1020 650 Balance 743 290 7188 Intake: IV 1400 1000 1800 D5-Ns - 1,000 ml @ 75 mls 600 /hr IV ASDIR MADYSON Rx#: [id number] LACTATED RINGERS SOLUTION 800 1,000 ml In 1,000 ml @ 100 mls/hr IV ASDIR MADYSON Rx#:[id number] LACTATED RINGERS SOLUTION 500 1,000 ml In 1,000 ml @ 250 mls/hr IV ASDIR MADYSON Rx#:[id number] LACTATED RINGERS SOLUTION 500 1,000 ml In 1,000 ml @ 500 mls/hr IV ASDIR MADYSON Rx#:[id number] LACTATED RINGERS SOLUTION 1000 1,000 ml In 1,000 ml @ 500 mls/hr IV ASDIR MADYSON Rx#:[id number] IVPB 50 Oral 200 300 Output: Urine 1000 650 Kunz 600 650 Estimated Blood Loss 20 Other: Voiding Method Diaper Toilet Toilet Bowel Movement No No Active Medications Generic Name Dose Route Start Last Admin Trade Name Freq PRN Reason Stop Dose Admin Acetaminophen 650 mg 02/23/19 09:45 02/23/19 09:57 Tylenol - PO 650 mg Q4H PRN Administration PAIN LEVEL 4 - 6 Benztropine Mesylate 0.5 mg 10/28/19 22:00 02/23/19 21:28 Cogentin - PO 0.5 mg BID [facility] Administration Citalopram Hydrobromide 20 mg 02/23/19 10:00 02/23/19 09:57 Celexa - PO 20 mg DAILY [facility] Administration Divalproex Sodium 250 mg 02/22/19 22:00 02/23/19 21:28 Depakote - PO 250 mg BID [facility] Administration Donepezil HCl 10 mg 02/23/19 10:00 02/23/19 09:57 Aricept - PO 10 mg DAILY [facility] Administration Famotidine 20 mg 02/22/19 22:00 02/23/19 21:28 Pepcid - PO 20 mg BID [facility] Administration Fentanyl 25 mcg 02/22/19 15:05 Sublimaze Injection - IVPUSH [id number] PRN PAIN-PACU ORDER X 4 DOSES ONLY Morphine Sulfate 1 mg 02/22/19 15:15 02/23/19 21:51 Morphine Sulfate IM 1 mg Q6H PRN Administration PAIN LEVEL 6-10 Olanzapine 2.5 mg 02/22/19 22:00 02/23/19 21:28 Zyprexa - PO 2.5 mg HS [facility] Administration Ondansetron HCl 4 mg 02/22/19 15:05 Zofran Injection IVPUSH Q6H PRN NAUSEA AND/OR VOMITING Thiamine HCl 100 mg 02/24/19 10:00 Vitamin B1 - PO DAILY [facility] Tobramycin/Dexamethasone 1 drop 02/22/19 22:00 02/23/19 21:28 Tobradex Ophthalmic Suspension - OU 1 drop BID [facility] Administration Vital Signs (last) Temp Pulse Resp BP Pulse Ox 99.2 F 101 H 19 98/60 95 02/24/19 10:15 02/24/19 10:15 02/24/19 10:15 02/24/19 10:15 02/24/19 09:00 Laboratory (coagulation) PT with INR 16.10 SEC (9.7-13.0) H 02/24/19 07:20 Laboratory 02/24/19 07:20 02/24/19 07:20 ASSESSMENT AND PLAN Ms. Milligan is an 88 year old female s/p right hip IM nailing POD 2 - Pain control: Transition to oral pain medications, minimize narcotic use - DVT prophylaxis - Ice to Right Hip - Elevate HOB, encourage oral intake - Transfuse PRBCs as necessary - Appreciate medical team input - Appreciate hematology input - D/Chris Kunz in AM today - D/C Piotr POD 14 - Change Dressings POD 5 - Appreciate medical management (Nutrition optimization, decubitus precautions heel/sacrum) - Physical Therapy Daily: WBAT RLE - Dispo planning All questions were answered. Thank you for involving our team in the care of this patient. Please call us at [phone] with questions
--- NOTE | 2019-02-24 11:42 | PN ---
Progress Note, Physician History of Present Illness: Ms. Milligan is an 88 yo female w/ pmh of HTN, COPD, GERD, and schizophrenia transferred from [facility] where she is a resident for evaluation of R hip injury. Patient reportedly fell while getting ready this morning and hurt her R hip. Reports pain at site however has no other complaints at this time. Denies any head injury or LOC. Denies other symptoms at this time. The patient denies chest pain, shortness of breath, headache and dizziness. Denies fever, chills, nausea, vomit, diarrhea and constipation. Denies dysuria, frequency, urgency and hematuria. - Current Medication List Current Medications: Active Medications Acetaminophen (Tylenol -) 650 mg PO Q4H PRN PRN Reason: PAIN LEVEL 4 - 6 Last Admin: 02/23/19 09:57 Dose: 650 mg Benztropine Mesylate (Cogentin -) 0.5 mg PO BID [facility] Last Admin: 02/24/19 11:29 Dose: 0.5 mg Citalopram Hydrobromide (Celexa -) 20 mg PO DAILY [facility] Last Admin: 02/24/19 11:28 Dose: 20 mg Divalproex Sodium (Depakote -) 250 mg PO BID [facility] Last Admin: 02/24/19 11:29 Dose: 250 mg Donepezil HCl (Aricept -) 10 mg PO DAILY [facility] Last Admin: 02/24/19 11:28 Dose: 10 mg Famotidine (Pepcid -) 20 mg PO BID [facility] Last Admin: 02/24/19 11:30 Dose: 20 mg Fentanyl (Sublimaze Injection -) 25 mcg IVPUSH [id number] PRN PRN Reason: PAIN-PACU ORDER X 4 DOSES ONLY Morphine Sulfate (Morphine Sulfate) 1 mg IM Q6H PRN PRN Reason: PAIN LEVEL 6-10 Last Admin: 02/23/19 21:51 Dose: 1 mg Olanzapine (Zyprexa -) 2.5 mg PO HS [facility] Last Admin: 02/23/19 21:28 Dose: 2.5 mg Ondansetron HCl (Zofran Injection) 4 mg IVPUSH Q6H PRN PRN Reason: NAUSEA AND/OR VOMITING Thiamine HCl (Vitamin B1 -) 100 mg PO DAILY [facility] Last Admin: 02/24/19 11:30 Dose: 100 mg Tobramycin/Dexamethasone (Tobradex Ophthalmic Suspension -) 1 drop OU BID [facility] Last Admin: 02/24/19 11:30 Dose: 1 drop - Objective Vital Signs: Vital Signs Temperature 99.2 F 02/24/19 10:15 Pulse Rate 101 H 02/24/19 10:15 Respiratory Rate 19 02/24/19 10:15 Blood Pressure 98/60 02/24/19 10:15 O2 Sat by Pulse Oximetry (%) 95 02/24/19 09:00 Eyes: Yes: WNL, Conjunctiva Clear, EOM Intact HENT: Yes: WNL, Atraumatic, Normocephalic Neck: Yes: WNL, Supple, Trachea Midline Cardiovascular: Yes: WNL, Regular Rate and Rhythm Respiratory: Yes: WNL, Regular, CTA Bilaterally Gastrointestinal: Yes: WNL, Normal Bowel Sounds Genitourinary: Yes: WNL Musculoskeletal: Yes: WNL Extremities: Yes: WNL Edema: No Integumentary: Yes: WNL Neurological: Yes: WNL, Alert, Oriented ...Motor Strength: WNL Psychiatric: Yes: WNL Labs: CBC, BMP 02/24/19 07:20 02/24/19 07:20 INR, PTT INR 1.36 (0.83-1.09) H 02/24/19 07:20 Problem List - Problems (1) Intertrochanteric fracture Code(s): S72.143A - DISPLACED INTERTROCHANTERIC FRACTURE OF UNSP FEMUR, INIT Qualifiers: Encounter type: initial encounter Fracture type: closed Fracture alignment: nondisplaced Laterality: right Qualified Code(s): S72.144A - Nondisplaced intertrochanteric fracture of right femur, initial encounter for closed fracture (2) Closed head injury Code(s): S09.90XA - UNSPECIFIED INJURY OF HEAD, INITIAL ENCOUNTER (3) Fall Code(s): W19.XXXA - UNSPECIFIED FALL, INITIAL ENCOUNTER (4) Knee pain, acute Code(s): M25.569 - PAIN IN UNSPECIFIED KNEE Assessment/Plan - Problems (1) Anemia Code(s): D64.9 - ANEMIA, UNSPECIFIED transfuse PRBC to keep HCT 30 (2) Intertrochanteric fracture Assessment/Plan: ECHO: normal LVEF; severely dilated LA EKG: normal sinus rhythm; normal study. No hx chest pain, dyspnea, leg edema. BP 130/70; HR 80 bpm. From a cardiac standpoint, there are no absolute contraindications for Ms. Milligan to undergo hip fracture surgical repair, though multiple comorbidities put her at significantly increased risk for a perioperative cardiac event. I discussed her case with the orthopedic surgeon; she may require PRBCs post-op, and it is known that she was until a few days ago on clopidogrel. Code(s): S72.143A - DISPLACED INTERTROCHANTERIC FRACTURE OF UNSP FEMUR, INIT Qualifiers: Encounter type: initial encounter Fracture type: closed Fracture alignment: nondisplaced Laterality: right Qualified Code(s): S72.144A - Nondisplaced intertrochanteric fracture of right femur, initial encounter for closed fracture (3) Fall Code(s): W19.XXXA - UNSPECIFIED FALL, INITIAL ENCOUNTER
--- NOTE | 2019-02-24 12:20 | PN ---
Progress Note (short form) - Note Progress Note: ID consult dictated imp/reccd asked to see by hematology for possiblei infection as cause of thrombocytopenia and lactic acidosis POD #2 s/p Gamma Nail s/p fall postop anemia she is alert denies fever/chills eating lunch stll has joseph +UA doubt pneumonia suggest rocephin pending urine culture results incentive spirometry d/c folely when able f/u blood and urine cultures Problem List - Problems (1) UTI (urinary tract infection) Code(s): N39.0 - URINARY TRACT INFECTION, SITE NOT SPECIFIED (2) Thrombocytopenia Code(s): D69.6 - THROMBOCYTOPENIA, UNSPECIFIED (3) Anemia Code(s): D64.9 - ANEMIA, UNSPECIFIED (4) Lactic acid increased Code(s): E87.2 - ACIDOSIS (5) Hip fracture Code(s): S72.009A - FRACTURE OF UNSP PART OF NECK OF UNSP FEMUR, INIT
[2019-02-24] MEDS ORDERED: cefTRIAXone SODIUM 1 GM VIAL ONE (12:39)
[2019-02-24] MEDS ORDERED: DEXTROSE 5%-WATER - 50 ML IVPB ONE (12:39)
[2019-02-24] MEDS: CEFTRIAXONE 1 GM in DEXTROSE 5%-WATER - 50 ML IVPB SCH (12:56)
--- NOTE | 2019-02-24 14:19 | PN ---
Progress Note, Physician History of Present Illness: PULMONARY AWAKE,ALERT,COMFORTABLE,-RESP DISTRESS. CHEST CTA -PE,BILATERAL PLEURAL EFFUSIONS COMPRESSIVE ATELECTASIS - Current Medication List Current Medications: Active Medications Acetaminophen (Tylenol -) 650 mg PO Q4H PRN PRN Reason: PAIN LEVEL 4 - 6 Last Admin: 02/23/19 09:57 Dose: 650 mg Benztropine Mesylate (Cogentin -) 0.5 mg PO BID [facility] Last Admin: 02/24/19 11:29 Dose: 0.5 mg Citalopram Hydrobromide (Celexa -) 20 mg PO DAILY [facility] Last Admin: 02/24/19 11:28 Dose: 20 mg Divalproex Sodium (Depakote -) 250 mg PO BID [facility] Last Admin: 02/24/19 11:29 Dose: 250 mg Donepezil HCl (Aricept -) 10 mg PO DAILY [facility] Last Admin: 02/24/19 11:28 Dose: 10 mg Enoxaparin Sodium (Lovenox -) 40 mg SQ DAILY [facility] Famotidine (Pepcid -) 20 mg PO BID [facility] Last Admin: 02/24/19 11:30 Dose: 20 mg Fentanyl (Sublimaze Injection -) 25 mcg IVPUSH [id number] PRN PRN Reason: PAIN-PACU ORDER X 4 DOSES ONLY Ceftriaxone Sodium 1 gm/ (Dextrose) 50 mls @ 200 mls/hr IVPB DAILY [facility]; Protocol Last Admin: 02/24/19 12:56 Dose: 200 mls/hr Morphine Sulfate (Morphine Sulfate) 1 mg IM Q6H PRN PRN Reason: PAIN LEVEL 6-10 Last Admin: 02/23/19 21:51 Dose: 1 mg Olanzapine (Zyprexa -) 2.5 mg PO HS [facility] Last Admin: 02/23/19 21:28 Dose: 2.5 mg Ondansetron HCl (Zofran Injection) 4 mg IVPUSH Q6H PRN PRN Reason: NAUSEA AND/OR VOMITING Thiamine HCl (Vitamin B1 -) 100 mg PO DAILY [facility] Last Admin: 02/24/19 11:30 Dose: 100 mg Tobramycin/Dexamethasone (Tobradex Ophthalmic Suspension -) 1 drop OU BID [facility] Last Admin: 02/24/19 11:30 Dose: 1 drop - Objective Vital Signs: Vital Signs Temperature 98.7 F 02/24/19 14:12 Pulse Rate 109 H 02/24/19 14:12 Respiratory Rate 20 02/24/19 14:12 Blood Pressure 100/58 L 02/24/19 14:12 O2 Sat by Pulse Oximetry (%) 95 02/24/19 09:00 Constitutional: Yes: Calm, Thin Eyes: Yes: WNL HENT: Yes: WNL Neck: Yes: WNL Cardiovascular: Yes: Regular Rate and Rhythm, S1, S2 Respiratory: Yes: Diminished Gastrointestinal: Yes: Normal Bowel Sounds, Soft Extremities: Yes: WNL Edema: No Labs: CBC, BMP 02/24/19 07:20 02/24/19 07:20 INR, PTT INR 1.36 (0.83-1.09) H 02/24/19 07:20 Laboratory Tests 02/23/19 14:40 ABG pH 7.39 ABG pCO2 at Pt Temp 46.1 H ABG pO2 at Pt Temp 77.9 L ABG HCO3 27.0 ABG O2 Sat (Measured) 94.8 L Oxygen Flow Rate 2l - ....Imaging Cat Scan: Report Reviewed, Image Reviewed Problem List - Problems (1) Pleural effusion Code(s): J90 - PLEURAL EFFUSION, NOT ELSEWHERE CLASSIFIED (2) Anemia Code(s): D64.9 - ANEMIA, UNSPECIFIED (3) Hip fracture Code(s): S72.009A - FRACTURE OF UNSP PART OF NECK OF UNSP FEMUR, INIT (4) Intertrochanteric fracture Code(s): S72.143A - DISPLACED INTERTROCHANTERIC FRACTURE OF UNSP FEMUR, INIT Qualifiers: Encounter type: initial encounter Fracture type: closed Fracture alignment: nondisplaced Laterality: right Qualified Code(s): S72.144A - Nondisplaced intertrochanteric fracture of right femur, initial encounter for closed fracture (5) Lactic acid increased Code(s): E87.2 - ACIDOSIS (6) Thrombocytopenia Code(s): D69.6 - THROMBOCYTOPENIA, UNSPECIFIED (7) Fall Code(s): W19.XXXA - UNSPECIFIED FALL, INITIAL ENCOUNTER Assessment/Plan IMP R HIP FX(INTERTROCHANTERIC FX) S/P MECHANICAL FALL,S/P NAIL FIXATION FEVER/HYPOTENSION RESOLVED ? BILATERAL PLEURAL EFFUSIONS /ATELECTASIS/?INFILTRATE ? COPD SCHIZOPHRENIA GERD ANEMIA/THROMBOCYTOPENIA ELEVATED LACTATE LEVEL IMPROVED PLAN ABX PER ID O2 NEEDED INCENTIVE SPIROMETER DVT PROPHYLAXIS MONITOR H+H,PLT CT NORMAL TRANSFUSION THRESHOLD' CULTURES DR BISWAS
[2019-02-24] MEDS: OLANZapine 2.5 MG TABLET PO SCH (21:31)
[2019-02-24] MEDS: MORPHINE SULFATE 2 MG/ML VIAL IM PRN (21:33)
--- NOTE | 2019-02-24 22:01 | CONS ---
INFECTIOUS DISEASE CONSULTATION DATE OF CONSULTATION: 02/24/2019 REQUESTING PHYSICIAN: Hematology. This is an 88-year-old woman who was admitted on the - after she fell and sustained an intertrochanteric fracture. She is postoperative day number 2 status post Gamma nail. She was seen by Hematology yesterday for progressive thrombocytopenia. She was noted to have lactic acidosis, and a consult was called for further evaluation. When I went to see the patient, she was alert, eating lunch. She had no fevers or chills. She still has a Kunz in place, but has no complaints. She reports that she has been living in an assisted facility for the last 15 years. She denies any cough. She denies any nausea or vomiting. PAST MEDICAL HISTORY: Notable for hypertension, COPD, GERD, and schizophrenia. SURGICAL HISTORY: Not known. SOCIAL HISTORY: There is no history of cigarette, alcohol, or substance use. ALLERGIES: She has no known drug allergies. MEDICATIONS AN OUTPATIENT: Include Cogentin, Celexa, Plavix, Depakote, Aricept, Pepcid, and Zyprexa. REVIEW OF SYSTEMS: Unremarkable. PHYSICAL EXAMINATION: General: She is a thin woman in no acute distress. Vital Signs: She has had low-grade fever; t-max of 100.8 yesterday. Today, her temperature is 99.2. Pulse of 101. Blood pressure 98/60. Respiratory rate is 19. HEENT: She is normocephalic. Her eyes are anicteric. Neck: Supple. Lungs: Have diminished breath sounds at the bases. Heart: Regular rate and rhythm. Abdomen: Soft, nontender. Genitourinary: She has a Kunz draining clear urine. Skin: She has a dressing on her right hip. Extremities: Without edema. LABORATORY DATA: Labs are notable for a white count of 9.2, hemoglobin 8.2. On admission, her hemoglobin was 12.8. Platelets are 86,000. Her INR is 1.36. Her BUN is 19 and creatinine 0.5. Lactic acid peaked at 2.5 yesterday, and this morning, is 1.3. Liver function tests are normal. Urinalysis has 1+ leukocyte esterase with 31 white cells. Blood cultures and urine cultures are pending. She had a chest CTA that showed no evidence of PE, but did show [id number] bilateral pleural effusions with bilateral compressive atelectasis. In summary, this is an 88-year-old woman postoperative day number 2 status post Gamma nail following her hip fracture. I was asked to see her for thrombocytopenia and lactic acidosis. I would suggest we continue Rocephin pending urine culture results as the urinalysis does show some white cells and she still has a Kunz. I would encourage incentive spirometry, discontinue the Kunz once possible, and follow up her urine and blood cultures. She has a HIT antibody ordered to evaluate her progressive thrombocytopenia as well. She is status post hip fracture postoperative day number 2. Further recommendations to follow. PILAR ESTEVES M.D. [id number]
[2019-02-25 08:12] LABS: BLOOD UREA NITROGEN 18.4 mg/dL (7-18); CREATININE 0.4 mg/dL (0.55-1.3); MAGNESIUM 1.6 mg/dL (1.8-2.4); POTASSIUM 4.2 mmol/L (3.5-5.1)
[2019-02-25] MEDS ORDERED: MAGNESIUM SULF 50% (8.12 MEQ/2 ML-1 GM VIAL) IVPB ONE (08:16)
--- NOTE | 2019-02-25 08:55 | PN ---
Progress Note (short form) - Note Progress Note: ORTHOPEDIC SURGERY PROGRESS NOTE Department of Orthopedic Surgery SUBJECTIVE No acute events overnight. No complaints currently. Resting comfortably in bed. Denies chest pain, shortness of breath, or calf pain. No nausea or vomiting. Pain control difficult overnight, but improving. Has been OOB to chair with PT PHYSICAL EXAMINATION General: Currently alert and mildly confused. cooperative and no distress. Right Lower Extremity: Dressing intact - changed today to new aquacell dressings ; no lesions, rashes or ulcers noted. No signs of hematoma formation or drainage or infection; Muscle mass equal and symmetric to contralateral side. No atrophy noted. No masses or effusions noted. No tenderness to palpation. Full passive and active ROM of the knee and ankle, free from pain. EHL/TA/GS motor intact; SILT distally; 2+ DP pulses; Cap refill brisk. DVT Exam: No evidence of DVT seen on physical exam; No cords or calf tenderness ; No significant calf/ankle edema. Intake & Output 02/23/19 02/24/19 02/25/19 23:59 23:59 23:59 Intake Total 1350 2000 90 Output Total 650 675 350 Balance 700 1325 -260 Intake: IV 1000 1800 LACTATED RINGERS SOLUTION 800 1,000 ml In 1,000 ml @ 100 mls/hr IV ASDIR MADYSON Rx#:[id number] LACTATED RINGERS SOLUTION 500 1,000 ml In 1,000 ml @ 250 mls/hr IV ASDIR MADYSON Rx#:[id number] LACTATED RINGERS SOLUTION 500 1,000 ml In 1,000 ml @ 500 mls/hr IV ASDIR MADYSON Rx#:[id number] LACTATED RINGERS SOLUTION 1000 1,000 ml In 1,000 ml @ 500 mls/hr IV ASDIR MADYSON Rx#:[id number] IVPB 50 Oral 300 200 90 Output: Urine 650 675 350 Kunz 650 675 350 Other: Voiding Method Toilet Indwelling Catheter # Unmeasured Voids Kunz 1 Bowel Movement No Yes No Active Medications Generic Name Dose Route Start Last Admin Trade Name Freq PRN Reason Stop Dose Admin Acetaminophen 650 mg 02/23/19 09:45 02/23/19 09:57 Tylenol - PO 650 mg Q4H PRN Administration PAIN LEVEL 4 - 6 Benztropine Mesylate 0.5 mg 02/22/19 22:00 02/24/19 21:37 Cogentin - PO 0.5 mg BID [facility] Administration Citalopram Hydrobromide 20 mg 02/23/19 10:00 02/24/19 11:28 Celexa - PO 20 mg DAILY [facility] Administration Divalproex Sodium 250 mg 02/22/19 22:00 02/24/19 21:37 Depakote - PO 250 mg BID [facility] Administration Donepezil HCl 10 mg 02/23/19 10:00 02/24/19 11:28 Aricept - PO 10 mg DAILY [facility] Administration Enoxaparin Sodium 40 mg 02/25/19 10:00 Lovenox - SQ DAILY [facility] Famotidine 20 mg 02/22/19 22:00 02/24/19 21:32 Pepcid - PO 20 mg BID [facility] Administration Fentanyl 25 mcg 02/22/19 15:05 Sublimaze Injection - IVPUSH [id number] PRN PAIN-PACU ORDER X 4 DOSES ONLY Ceftriaxone Sodium 1 gm/ 50 mls @ 200 mls/hr 02/24/19 12:30 02/24/19 12:56 Dextrose IVPB 200 mls/hr DAILY [facility] Administration Protocol Morphine Sulfate 1 mg 02/22/19 15:15 02/24/19 21:33 Morphine Sulfate IM 1 mg Q6H PRN Administration PAIN LEVEL 6-10 Olanzapine 2.5 mg 02/22/19 22:00 02/24/19 21:31 Zyprexa - PO 2.5 mg HS [facility] Administration Ondansetron HCl 4 mg 02/22/19 15:05 Zofran Injection IVPUSH Q6H PRN NAUSEA AND/OR VOMITING Thiamine HCl 100 mg 02/24/19 10:00 02/24/19 11:30 Vitamin B1 - PO 100 mg DAILY [facility] Administration Tobramycin/Dexamethasone 1 drop 02/22/19 22:00 02/24/19 21:37 Tobradex Ophthalmic Suspension - OU 1 drop BID [facility] Administration Vital Signs (last) Temp Pulse Resp BP Pulse Ox 98.6 F 91 H 16 108/44 L 100 02/25/19 05:34 02/25/19 05:34 02/25/19 05:34 02/25/19 05:34 02/24/19 21:00 Laboratory (coagulation) PT with INR 16.10 SEC (9.7-13.0) H 02/24/19 07:20 Laboratory 02/25/19 06:10 ASSESSMENT AND PLAN Ms. Milligan is an 88 year old female s/p right hip IM nailing POD 3 - Pain control: Transition to oral pain medications, minimize narcotic use - DVT prophylaxis - Ice to Right Hip - F/U AM Labs - transfuse if necessary - Elevate HOB, encourage oral intake - Transfuse PRBCs as necessary - Appreciate medical team input - Appreciate hematology input - D/C Ze in AM today - D/C [place] POD 14 - Change Dressings Q3 days - Appreciate medical management (Nutrition optimization, decubitus precautions heel/sacrum) - Physical Therapy Daily: WBAT RLE - Dispo planning All questions were answered. Thank you for involving our team in the care of this patient. Please call us at [phone] with questions
[2019-02-25] MEDS ORDERED: cefTRIAXone SODIUM 1 GM VIAL ONE (09:58)
[2019-02-25] MEDS ORDERED: DEXTROSE 5%-WATER - 50 ML IVPB ONE (09:59)
[2019-02-25] MEDS ORDERED: ENOXAPARIN NA (PORCINE) 40 MG/0.4 ML DISP.SYRIN SQ SCH (10:00)
[2019-02-25] MEDS: CEFTRIAXONE 1 GM in DEXTROSE 5%-WATER - 50 ML IVPB SCH (10:07)
[2019-02-25] MEDS: CITALOPRAM HYDROBROMIDE 20 MG TABLET (FP) PO SCH (10:10)
[2019-02-25] MEDS: DONEPEZIL HCL 10 MG TABLET (FP) PO SCH (10:10)
[2019-02-25] MEDS: THIAMINE HCL 100 MG TABLET (FP) PO SCH (10:10)
[2019-02-25] MEDS: FAMOTIDINE 20 MG TABLET PO SCH ×2 (10:11→21:42)
[2019-02-25] MEDS: BENZTROPINE MESYLATE 0.5 MG TABLET (FP) PO SCH ×2 (10:11→21:42)
[2019-02-25] MEDS: TOBRA 0.3%/DEXAMETH 0.1% OPHTHALMIC SUSP 2.5 ML BTL OU SCH ×2 (10:11→21:44)
[2019-02-25] MEDS: DIVALPROEX SODIUM 250 MG TABLET E.C. PO SCH ×2 (10:11→21:42)
[2019-02-25 10:19] LABS: HEMATOCRIT 21.1 % (32.4-45.2); MCH 30.5 pg (25.7-33.7); MCHC 32.9 g/dl (32.0-36.0); MEAN CELL VOLUME 92.7 fl (80-96); MEAN PLT VOLUME 9.9 fl (7.5-11.1); PLATELET COUNT 90 K/MM3 (134-434); RBC 2.28 M/mm3 (3.60-5.2); RDW 14.8 % (11.6-15.6); WHITE BLOOD COUNT 6.9 K/mm3 (4.0-10.0)
[2019-02-25 10:27] LABS: HEMOGLOBIN 6.9 GM/dL (10.7-15.3)
--- NOTE | 2019-02-25 11:05 | PN ---
Progress Note (short form) - Note Progress Note: HPI: No acute events overnight. PT is hard of hearing. No symptoms reported at current time of exam. Vital Signs Temperature 98.6 F 02/25/19 10:00 Pulse Rate 94 H 02/25/19 10:00 Respiratory Rate 18 02/25/19 10:00 Blood Pressure 107/77 02/25/19 10:00 O2 Sat by Pulse Oximetry (%) 100 02/24/19 21:00 PE: GEN: Frail, hearing loss, oriented x2, no acute distress HEENT: Nc/AT, INDIRA, MMM LUNG: Diminished breath sounds at bases today (improved). No wheezes, good inspiratory effort. 2LNC 97% CARD: RRR no murmurs appreciated ABD: Soft, Nt/Nd, normoactive BS, no guarding EXT: Immobilizer and wrap in place without notable bleeding/drainage from site. cap refill <2 sec CBC, BMP 02/25/19 06:10 02/25/19 06:10 Active Medications Acetaminophen (Tylenol -) 650 mg PO Q4H PRN PRN Reason: PAIN LEVEL 4 - 6 Last Admin: 02/23/19 09:57 Dose: 650 mg Benztropine Mesylate (Cogentin -) 0.5 mg PO BID [facility] Last Admin: 02/25/19 10:11 Dose: 0.5 mg Citalopram Hydrobromide (Celexa -) 20 mg PO DAILY [facility] Last Admin: 02/25/19 10:10 Dose: 20 mg Divalproex Sodium (Depakote -) 250 mg PO BID [facility] Last Admin: 02/25/19 10:11 Dose: 250 mg Donepezil HCl (Aricept -) 10 mg PO DAILY [facility] Last Admin: 02/25/19 10:10 Dose: 10 mg Famotidine (Pepcid -) 20 mg PO BID [facility] Last Admin: 02/25/19 10:11 Dose: 20 mg Fentanyl (Sublimaze Injection -) 25 mcg IVPUSH [id number] PRN PRN Reason: PAIN-PACU ORDER X 4 DOSES ONLY Ceftriaxone Sodium 1 gm/ (Dextrose) 50 mls @ 200 mls/hr IVPB DAILY [facility]; Protocol Last Admin: 02/25/19 10:07 Dose: 200 mls/hr Morphine Sulfate (Morphine Sulfate) 1 mg IM Q6H PRN PRN Reason: PAIN LEVEL 6-10 Last Admin: 02/24/19 21:33 Dose: 1 mg Olanzapine (Zyprexa -) 2.5 mg PO HS [facility] Last Admin: 02/24/19 21:31 Dose: 2.5 mg Ondansetron HCl (Zofran Injection) 4 mg IVPUSH Q6H PRN PRN Reason: NAUSEA AND/OR VOMITING Thiamine HCl (Vitamin B1 -) 100 mg PO DAILY [facility] Last Admin: 02/25/19 10:10 Dose: 100 mg Tobramycin/Dexamethasone (Tobradex Ophthalmic Suspension -) 1 drop OU BID [facility] Last Admin: 02/25/19 10:11 Dose: 1 drop Assessment and Plan: R intertrochanteric hip fracture Acute Normocytic anemia Mechanical fall COPD not in exacerbation H/o HTN Lactic acidosis (resolved) Schizophrenia Severe protein calorie malnutrition --Hgb 6.9 today; asymptomatic BP at baseline --Transfuse 1UPRBC --No active signs of bleeding and none on surgical dressing --iron studies, retic count, coags, repeat hemoccult all ordered --Potential CT A/P if bleeding cannot be localized to r/o intrabdominal sources --Hold chemical AC; scds only --Trend Hgb q6h until stabilized --Encourage use of incentive spirometry --Monitor mentation status --LA likely more Type B due to acute decrease after thiamine supplementation --Continue home medications: Zyprexa 2.5mg HS Aricept 10mg qdaily Depakote 250mg BID Cogentin 0.5mg BID --UA with notably pyuria and bacteruria: f/u cultures and sensitivities --Continue Rocephin 1gm for now --Inputs and outputs to be followed FEN: Fluids: Avoid; let fluid balance equalize today Electrolyte abnormalities: HypoMg; repleted MgSulfate Nutrition: Regular PPX: DVT - chemical ppx on hold; scd L leg only GI - Pepcid 20mg BID Dispo: close monitoring of hemodynamics Case discussed with Dr. Edwina Anthony, DO - IM PGY-3 <Desmond Anthony - Last Filed: 02/25/19 11:07> - Note Progress Note: Seen and examined; no new complaints. Reviewed chart. Independently verified all adrian resident Hx and PE findings. Independently verified and reviewed all lab and imaging findings. POD#3 Gamma Nail No new complaints but is found to have a low Hb this AM and will be transfused. Noted that she has no indicated source of bleeding with negative occult and SCDs for DVT px and plavix being held. Checking CT to r/o any postop bleed given plavix use prior to procdure. Hemodynamics stable. Following up posttransfusion CBC. 10 sys ROS done and negative aside from HPI PMH, PSH, FH, SH reviewed VS labs and imaging reviewed NAD, AAO, resting in bed NC AT EOMI PERRLA Neurovascularly intact; indicated leg short/ext. rotated NT ND +BS CN2-12 wnl, no fnd HR wnl, no fnd Lungs CTAB, w/ sym exp Normal mood, appropriate behavior. No bleeding or bruising observed around the operative site Admission imaging and diagnostics reviewed Echo reviewed; ?MS 2/2 MAC, severe LVH with no outflow obstruction, ?DD, sys fn wnl. EKG reviewed ASSESSMENT AND PLAN: Patient presents for hip fracture and is noted to be anemic postoperatively as well as with potential infection; on empiric ceftriaxone and monitoring. Overall problems include: -Hip fx s/p operative repair, postop care per consulting -Acute on chronic anemia with likely iron deficiency and chronic disease components, r/o chronic blood loss anemia *Acutely worsening; avoid all AC and followup repeat FOBT and CT scan. Discuss with sgy and heme. Post XF CBC and moniotor orthostatics. -Acute thrombocytopenia -Hematology consulted; discussed with service and will abide by recommendations -Postop fevers; less likely PNA, FU Ucx and ID input. -Mechanical fall -COPD not in exacerbation -H/O HTN -Normocytic anemia -Lactic acidosis -Schizophrenia -Severe protein calorie malnutrition -MCI (deemed capacity by psych) Full Code Discussed at length with consutling services. <Timothy Bland - Last Filed: 02/25/19 13:01>
[2019-02-25 11:29] LABS: HEMATOCRIT 23.6 % (32.4-45.2); HEMOGLOBIN 7.5 GM/dL (10.7-15.3); MCH 29.7 pg (25.7-33.7); MCHC 31.8 g/dl (32.0-36.0); MEAN CELL VOLUME 93.4 fl (80-96); MEAN PLT VOLUME 9.2 fl (7.5-11.1); PLATELET COUNT 105 K/MM3 (134-434); RBC 2.52 M/mm3 (3.60-5.2); RDW 14.9 % (11.6-15.6); RETICULOCYTES 2.73 % (0.5-1.5); WHITE BLOOD COUNT 6.6 K/mm3 (4.0-10.0)
--- NOTE | 2019-02-25 11:42 | PN ---
Progress Note, Physician Chief Complaint: Pt A&Ox3; denies chest pain; sitting up in chair, denies dyspnea; +mild pain at right hip surgical site. History of Present Illness: The patient is an 88 year old black female with a past medical history of schizophrenia, COPD, HTN, and GERD here today from [facility] for evaluation of right thigh/hip pain. The patient reports that she fell today and injured her right thigh, unable to ambulate. She states that her roommate helped her up and denies any head strike or loss of consciousness. +Plavix use. no other AC. Patient denies headache, lightheadedness. Denies fever, chills. Denies chest pain, shortness of breath. Denies nausea, vomiting, diarrhea, abdominal pain. denies prodromal sx leading to fall. Allergies: NKA - Current Medication List Current Medications: Active Medications Acetaminophen (Tylenol -) 650 mg PO Q4H PRN PRN Reason: PAIN LEVEL 4 - 6 Last Admin: 02/23/19 09:57 Dose: 650 mg Benztropine Mesylate (Cogentin -) 0.5 mg PO BID [facility] Last Admin: 02/25/19 10:11 Dose: 0.5 mg Citalopram Hydrobromide (Celexa -) 20 mg PO DAILY [facility] Last Admin: 02/25/19 10:10 Dose: 20 mg Divalproex Sodium (Depakote -) 250 mg PO BID [facility] Last Admin: 02/25/19 10:11 Dose: 250 mg Donepezil HCl (Aricept -) 10 mg PO DAILY [facility] Last Admin: 02/25/19 10:10 Dose: 10 mg Famotidine (Pepcid -) 20 mg PO BID [facility] Last Admin: 02/25/19 10:11 Dose: 20 mg Fentanyl (Sublimaze Injection -) 25 mcg IVPUSH [id number] PRN PRN Reason: PAIN-PACU ORDER X 4 DOSES ONLY Ceftriaxone Sodium 1 gm/ (Dextrose) 50 mls @ 200 mls/hr IVPB DAILY [facility]; Protocol Last Admin: 02/25/19 10:07 Dose: 200 mls/hr Morphine Sulfate (Morphine Sulfate) 1 mg IM Q6H PRN PRN Reason: PAIN LEVEL 6-10 Last Admin: 02/24/19 21:33 Dose: 1 mg Olanzapine (Zyprexa -) 2.5 mg PO HS [facility] Last Admin: 02/24/19 21:31 Dose: 2.5 mg Ondansetron HCl (Zofran Injection) 4 mg IVPUSH Q6H PRN PRN Reason: NAUSEA AND/OR VOMITING Thiamine HCl (Vitamin B1 -) 100 mg PO DAILY [facility] Last Admin: 02/25/19 10:10 Dose: 100 mg Tobramycin/Dexamethasone (Tobradex Ophthalmic Suspension -) 1 drop OU BID [facility] Last Admin: 02/25/19 10:11 Dose: 1 drop - Objective Vital Signs: Vital Signs Temperature 98.6 F 02/25/19 10:00 Pulse Rate 94 H 02/25/19 10:00 Respiratory Rate 18 02/25/19 10:00 Blood Pressure 107/77 02/25/19 10:00 O2 Sat by Pulse Oximetry (%) 100 02/24/19 21:00 Constitutional: Yes: Calm Eyes: Yes: WNL HENT: Yes: WNL Neck: Yes: WNL Cardiovascular: Yes: Tachycardia, S1, S2 Respiratory: Yes: Regular Gastrointestinal: Yes: Soft ...Rectal Exam: Yes: Deferred Genitourinary: No: Anuria Breast(s): Yes: WNL Musculoskeletal: Yes: Muscle Pain, Muscle Weakness, Other (moving all limbs ( decreased ROM right hip--s/p Fx repair).) Extremities: Yes: Cool Edema: No Peripheral Pulses WNL: Yes Integumentary: Yes: Bruising Wound/Incision: Yes: Clean/Dry Neurological: Yes: Alert, Oriented, Weakness Psychiatric: Yes: Alert, Oriented, Other (hx schizophrenia.) Labs: CBC, BMP 02/25/19 06:10 INR, PTT INR 1.36 (0.83-1.09) H 02/24/19 07:20 Abnormal Lab Results 02/21/19 02/25/19 02/25/19 11:12 06:10 06:10 RBC 2.28 L Hgb 6.9 L* Hct 21.1 L MCHC Plt Count 90 L Retic Count Carbon Dioxide 33 H Anion Gap 3 L BUN 18.4 H Creatinine 0.4 L Calcium 8.0 L Magnesium 1.6 L Crossmatch See Detail 02/25/19 02/25/19 11:20 11:20 RBC 2.52 L Hgb 7.5 L Hct 23.6 L MCHC 31.8 L Plt Count 105 L Retic Count 2.73 H D Carbon Dioxide Anion Gap BUN Creatinine Calcium Magnesium Crossmatch See Detail - ....Imaging Chest X-ray: Image Reviewed Cat Scan: Image Reviewed Ultrasound: Report Reviewed (ECHO) EKG: Image Reviewed Other: Other (telemetry: NSR; periods of sinus tachycardia; brief episode of ventricular bigemny) Problem List - Problems (1) Anemia Assessment/Plan: worsening anemia post-right hip repair-->PRBCs; for 2nd unit today. r/o bleed at surgical site. Code(s): D64.9 - ANEMIA, UNSPECIFIED (2) Intertrochanteric fracture Assessment/Plan: s/p hip fracture repair. Severely anemic-->PRBCs; r/o bleed at surgical site. Pt alert; mild pain at surgical site. Pulses WNL. Code(s): S72.143A - DISPLACED INTERTROCHANTERIC FRACTURE OF UNSP FEMUR, INIT Qualifiers: Encounter type: initial encounter Fracture type: closed Fracture alignment: nondisplaced Laterality: right Qualified Code(s): S72.144A - Nondisplaced intertrochanteric fracture of right femur, initial encounter for closed fracture (3) Acute on chronic diastolic (congestive) heart failure Assessment/Plan: CT chest: moderate vascular congestion, pleural effusion. Post-PRBCs; for 2nd unit today. Start furosemide IVP 20 mg prn. ECHO: normal LVEF; severe LVH. F/u BUN/Cr, electrolytes, daily weight, Is and Os. Code(s): I50.33 - ACUTE ON CHRONIC DIASTOLIC (CONGESTIVE) HEART FAILURE
--- NOTE | 2019-02-25 12:09 | PN ---
Progress Note (short form) - Note Progress Note: NAD. No CP or SOB. Some mild hip discomfort. No acute events overnight. Intake & Output 02/22/19 02/23/19 02/24/19 02/25/19 23:59 23:59 23:59 23:59 Intake Total 1600 1350 2000 340 Output Total 1020 650 675 350 Balance 824 312 3897 -10 Last Vital Signs Temp Pulse Resp BP Pulse Ox 98.6 F 94 H 18 107/77 99 02/25/19 10:00 02/25/19 10:00 02/25/19 10:00 02/25/19 10:00 02/25/19 09:00 Active Medications Acetaminophen (Tylenol -) 650 mg PO Q4H PRN PRN Reason: PAIN LEVEL 4 - 6 Last Admin: 02/23/19 09:57 Dose: 650 mg Benztropine Mesylate (Cogentin -) 0.5 mg PO BID [facility] Last Admin: 02/25/19 10:11 Dose: 0.5 mg Citalopram Hydrobromide (Celexa -) 20 mg PO DAILY [facility] Last Admin: 02/25/19 10:10 Dose: 20 mg Divalproex Sodium (Depakote -) 250 mg PO BID [facility] Last Admin: 02/25/19 10:11 Dose: 250 mg Donepezil HCl (Aricept -) 10 mg PO DAILY [facility] Last Admin: 02/25/19 10:10 Dose: 10 mg Famotidine (Pepcid -) 20 mg PO BID [facility] Last Admin: 02/25/19 10:11 Dose: 20 mg Fentanyl (Sublimaze Injection -) 25 mcg IVPUSH [id number] PRN PRN Reason: PAIN-PACU ORDER X 4 DOSES ONLY Ceftriaxone Sodium 1 gm/ (Dextrose) 50 mls @ 200 mls/hr IVPB DAILY [facility]; Protocol Last Admin: 02/25/19 10:07 Dose: 200 mls/hr Morphine Sulfate (Morphine Sulfate) 1 mg IM Q6H PRN PRN Reason: PAIN LEVEL 6-10 Last Admin: 02/24/19 21:33 Dose: 1 mg Olanzapine (Zyprexa -) 2.5 mg PO HS [facility] Last Admin: 02/24/19 21:31 Dose: 2.5 mg Ondansetron HCl (Zofran Injection) 4 mg IVPUSH Q6H PRN PRN Reason: NAUSEA AND/OR VOMITING Thiamine HCl (Vitamin B1 -) 100 mg PO DAILY [facility] Last Admin: 02/25/19 10:10 Dose: 100 mg Tobramycin/Dexamethasone (Tobradex Ophthalmic Suspension -) 1 drop OU BID [facility] Last Admin: 02/25/19 10:11 Dose: 1 drop Constitutional: Yes: NAD, Thin Eyes: Yes: WNL HENT: Yes: WNL Neck: Yes: WNL Cardiovascular: Yes: Regular Rate and Rhythm, S1, S2 Respiratory: Yes: Diminished Gastrointestinal: Yes: Normal Bowel Sounds, Soft Extremities: Yes: WNL Edema: No Labs: Laboratory Results - last 24 hr 02/21/19 02/25/19 02/25/19 11:12 06:10 06:10 WBC 6.9 RBC 2.28 L Hgb 6.9 L* Hct 21.1 L MCV 92.7 MCH 30.5 MCHC 32.9 RDW 14.8 Plt Count 90 L MPV 9.9 Retic Count Sodium 137 Potassium 4.2 Chloride 100 Carbon Dioxide 33 H Anion Gap 3 L BUN 18.4 H Creatinine 0.4 L Est GFR (CKD-EPI)AfAm 108.54 Est GFR (CKD-EPI)NonAf 93.65 Random Glucose 82 Calcium 8.0 L Magnesium 1.6 L Ferritin Blood Type Antibody Screen Crossmatch See Detail 02/25/19 02/25/19 02/25/19 11:20 11:20 11:20 WBC 6.6 RBC 2.52 L Hgb 7.5 L Hct 23.6 L MCV 93.4 MCH 29.7 MCHC 31.8 L RDW 14.9 Plt Count 105 L MPV 9.2 Retic Count 2.73 H D Sodium Potassium Chloride Carbon Dioxide Anion Gap BUN Creatinine Est GFR (CKD-EPI)AfAm Est GFR (CKD-EPI)NonAf Random Glucose Calcium Magnesium Ferritin 162.3 Blood Type A POSITIVE Antibody Screen Negative Crossmatch See Detail Problem List - Problems (1) Pleural effusion Code(s): J90 - PLEURAL EFFUSION, NOT ELSEWHERE CLASSIFIED (2) Anemia Code(s): D64.9 - ANEMIA, UNSPECIFIED (3) Hip fracture Code(s): S72.009A - FRACTURE OF UNSP PART OF NECK OF UNSP FEMUR, INIT (4) Intertrochanteric fracture Code(s): S72.143A - DISPLACED INTERTROCHANTERIC FRACTURE OF UNSP FEMUR, INIT Qualifiers: Encounter type: initial encounter Fracture type: closed Fracture alignment: nondisplaced Laterality: right Qualified Code(s): S72.144A - Nondisplaced intertrochanteric fracture of right femur, initial encounter for closed fracture (5) Lactic acid increased Code(s): E87.2 - ACIDOSIS (6) Thrombocytopenia Code(s): D69.6 - THROMBOCYTOPENIA, UNSPECIFIED (7) Fall Code(s): W19.XXXA - UNSPECIFIED FALL, INITIAL ENCOUNTER Assessment/Plan IMP R HIP FX(INTERTROCHANTERIC FX) S/P MECHANICAL FALL,S/P NAIL FIXATION FEVER/HYPOTENSION RESOLVED ? BILATERAL PLEURAL EFFUSIONS /ATELECTASIS/?INFILTRATE ? COPD SCHIZOPHRENIA GERD ANEMIA/THROMBOCYTOPENIA ELEVATED LACTATE LEVEL IMPROVED PLAN ABX PER ID O2 NEEDED INCENTIVE SPIROMETER DVT PROPHYLAXIS NORMAL TRANSFUSION THRESHOLD FOLLOW CULTURES Dr Aldrich
[2019-02-25 12:41] LABS: INR 1.18 (0.83-1.09)
[2019-02-25 12:44] LABS: ACTIVATED PTT 35.2 SECONDS (25.2-36.5)
[2019-02-25] MEDS ORDERED: PT OWN MED DRAWER 7, Y5N ONE ×3 (13:43→21:02)
--- NOTE | 2019-02-25 14:55 | PN ---
Progress Note (short form) - Note Progress Note: oob in chair alert no complaints s/p blood transfusion today Vital Signs Period Temp Pulse Resp BP Sys/Hansen Pulse Ox Last 24 Hr 98.1 F-98.9 F 91-109 16-18 90-149/42-77 99-100 cor-rrr lungs decreased bs at bases abd soft,nt ext no edema CBC, BMP 02/25/19 11:20 02/25/19 06:10 Microbiology 02/23/19 10:45 Blood - Peripheral Venous Blood Culture - Preliminary NO GROWTH OBTAINED AFTER 48 HOURS, INCUBATION TO CONTINUE FOR 3 DAYS. 02/23/19 10:50 Blood - Peripheral Venous Blood Culture - Preliminary NO GROWTH OBTAINED AFTER 48 HOURS, INCUBATION TO CONTINUE FOR 3 DAYS. 02/23/19 19:00 Urine - Urine - Catheterized Urine Culture - Final NO GROWTH OBTAINED 02/21/19 14:19 Urine - Urine Kunz Urine Culture - Final NO GROWTH OBTAINED imp/reccd POD #3 s/p Gamma Nail s/p fall postop anemia -for ct scan to evaluate platelets improving lactic acidosis resolved d/c rocephin, f/u ct scan Problem List - Problems (1) UTI (urinary tract infection) Code(s): N39.0 - URINARY TRACT INFECTION, SITE NOT SPECIFIED (2) Thrombocytopenia Code(s): D69.6 - THROMBOCYTOPENIA, UNSPECIFIED (3) Anemia Code(s): D64.9 - ANEMIA, UNSPECIFIED (4) Lactic acid increased Code(s): E87.2 - ACIDOSIS (5) Hip fracture Code(s): S72.009A - FRACTURE OF UNSP PART OF NECK OF UNSP FEMUR, INIT
[2019-02-25 18:34] LABS: HEMATOCRIT 29.5 % (32.4-45.2); HEMOGLOBIN 10.2 GM/dL (10.7-15.3); MCH 32.3 pg (25.7-33.7); MCHC 34.5 g/dl (32.0-36.0); MEAN CELL VOLUME 93.8 fl (80-96); PLATELET COUNT 115 K/MM3 (134-434); RBC 3.15 M/mm3 (3.60-5.2); RDW 14.5 % (11.6-15.6); WHITE BLOOD COUNT 7.6 K/mm3 (4.0-10.0)
[2019-02-25] MEDS: OLANZapine 2.5 MG TABLET PO SCH (21:42)
[2019-02-25] MEDS ORDERED: FUROSEMIDE 40 MG/4 ML INJECTABLE VIAL IVPUSH ONE (23:31)
[2019-02-26 08:16] LABS: HEMATOCRIT 25.8 % (32.4-45.2); HEMOGLOBIN 9.3 GM/dL (10.7-15.3); MCH 33.8 pg (25.7-33.7); MCHC 36.2 g/dl (32.0-36.0); MEAN CELL VOLUME 93.3 fl (80-96); PLATELET COUNT 115 K/MM3 (134-434); RBC 2.76 M/mm3 (3.60-5.2); RDW 14.2 % (11.6-15.6); WHITE BLOOD COUNT 6.6 K/mm3 (4.0-10.0)
[2019-02-26] MEDS: CITALOPRAM HYDROBROMIDE 20 MG TABLET (FP) PO SCH (09:11)
[2019-02-26] MEDS: DONEPEZIL HCL 10 MG TABLET (FP) PO SCH (09:11)
[2019-02-26] MEDS: FAMOTIDINE 20 MG TABLET PO SCH ×2 (09:12→21:38)
[2019-02-26] MEDS: THIAMINE HCL 100 MG TABLET (FP) PO SCH (09:12)
[2019-02-26] MEDS: BENZTROPINE MESYLATE 0.5 MG TABLET (FP) PO SCH ×2 (09:12→21:38)
[2019-02-26] MEDS: DIVALPROEX SODIUM 250 MG TABLET E.C. PO SCH ×2 (09:12→21:38)
[2019-02-26] MEDS: TOBRA 0.3%/DEXAMETH 0.1% OPHTHALMIC SUSP 2.5 ML BTL OU SCH ×2 (09:13→21:39)
[2019-02-26 09:18] LABS: CALCIUM 7.9 mg/dL (8.5-10.1); CREATININE 0.4 mg/dL (0.55-1.3); N-TERMINAL BNP 2937.2 pg/ml (5-450); POTASSIUM 4.1 mmol/L (3.5-5.1)
--- NOTE | 2019-02-26 10:20 | PN ---
Progress Note (short form) - Note Progress Note: feels well no complaints Vital Signs Period Temp Pulse Resp BP Sys/Hansen Pulse Ox Last 24 Hr 98 F-99.2 F 89-98 17-18 90-111/56-78 100 cor-rrr lungs clear abd soft,nt ext dressing intact CBC, BMP 02/26/19 06:20 02/26/19 06:20 Microbiology 02/23/19 10:45 Blood - Peripheral Venous Blood Culture - Preliminary NO GROWTH OBTAINED AFTER 48 HOURS, INCUBATION TO CONTINUE FOR 3 DAYS. 02/23/19 10:50 Blood - Peripheral Venous Blood Culture - Preliminary NO GROWTH OBTAINED AFTER 48 HOURS, INCUBATION TO CONTINUE FOR 3 DAYS. 02/23/19 19:00 Urine - Urine - Catheterized Urine Culture - Final NO GROWTH OBTAINED 02/21/19 14:19 Urine - Urine Kunz Urine Culture - Final NO GROWTH OBTAINED pelvic ct- results noted-no hematoma V imp/reccd POD #4 s/p Gamma Nail s/p fall postop anemia -follow with serial cbc platelets improving lactic acidosis resolved stable off antiiboitcs please call back if needed Problem List - Problems (1) UTI (urinary tract infection) Code(s): N39.0 - URINARY TRACT INFECTION, SITE NOT SPECIFIED (2) Thrombocytopenia Code(s): D69.6 - THROMBOCYTOPENIA, UNSPECIFIED (3) Anemia Code(s): D64.9 - ANEMIA, UNSPECIFIED (4) Lactic acid increased Code(s): E87.2 - ACIDOSIS (5) Hip fracture Code(s): S72.009A - FRACTURE OF UNSP PART OF NECK OF UNSP FEMUR, INIT
--- NOTE | 2019-02-26 11:15 | PN ---
Progress Note (short form) - Note Progress Note: PULMONARY AWAKE/ALERT DISCOMFORT IN RIGHT LEG VSS/AFEBRILE Constitutional: Yes: NAD, Thin Eyes: Yes: WNL HENT: Yes: WNL Neck: Yes: WNL Cardiovascular: Yes: Regular Rate and Rhythm, S1, S2 Respiratory: Yes: Diminished Gastrointestinal: Yes: Normal Bowel Sounds, Soft Extremities: Yes: WNL Edema: No Labs: REVIEWED IMP R HIP FX(INTERTROCHANTERIC FX) S/P MECHANICAL FALL,S/P NAIL FIXATION FEVER/HYPOTENSION RESOLVED ? BILATERAL PLEURAL EFFUSIONS /ATELECTASIS/?INFILTRATE ? COPD SCHIZOPHRENIA GERD ANEMIA/THROMBOCYTOPENIA ELEVATED LACTATE LEVEL IMPROVED PLAN ABX PER ID O2 NEEDED INCENTIVE SPIROMETER DVT PROPHYLAXIS NORMAL TRANSFUSION THRESHOLD PT Alon LAZCANO MD
--- NOTE | 2019-02-26 11:52 | PN ---
Progress Note (short form) - Note Progress Note: HPI: No acute events overnight. No symptoms reported at current time of exam. Pleasantly confused Vital Signs Temperature 98 F 02/26/19 09:19 Pulse Rate 89 02/26/19 09:19 Respiratory Rate 18 02/26/19 09:19 Blood Pressure 94/59 L 02/26/19 09:19 O2 Sat by Pulse Oximetry (%) 100 02/26/19 09:00 PE: GEN: Frail, hearing loss, oriented x2, no acute distress HEENT: Nc/AT, INDIRA, MMM LUNG: Diminished breath sounds at bases today. No wheezes, good inspiratory effort. 2LNC 97% CARD: RRR no murmurs appreciated ABD: Soft, Nt/Nd, normoactive BS, no guarding EXT: Immobilizer and wrap in place without notable bleeding/drainage from site. cap refill <2 sec CBC, BMP 02/26/19 06:20 02/26/19 06:20 Active Medications Acetaminophen (Tylenol -) 650 mg PO Q4H PRN PRN Reason: PAIN LEVEL 4 - 6 Last Admin: 02/26/19 14:00 Dose: 650 mg Benztropine Mesylate (Cogentin -) 0.5 mg PO BID [facility] Last Admin: 02/26/19 09:12 Dose: 0.5 mg Citalopram Hydrobromide (Celexa -) 20 mg PO DAILY [facility] Last Admin: 02/26/19 09:11 Dose: 20 mg Divalproex Sodium (Depakote -) 250 mg PO BID [facility] Last Admin: 02/26/19 09:12 Dose: 250 mg Donepezil HCl (Aricept -) 10 mg PO DAILY [facility] Last Admin: 02/26/19 09:11 Dose: 10 mg Famotidine (Pepcid -) 20 mg PO BID [facility] Last Admin: 02/26/19 09:12 Dose: 20 mg Fentanyl (Sublimaze Injection -) 25 mcg IVPUSH [id number] PRN PRN Reason: PAIN-PACU ORDER X 4 DOSES ONLY Morphine Sulfate (Morphine Sulfate) 1 mg IM Q6H PRN PRN Reason: PAIN LEVEL 6-10 Last Admin: 02/24/19 21:33 Dose: 1 mg Olanzapine (Zyprexa -) 2.5 mg PO HS [facility] Last Admin: 02/25/19 21:42 Dose: 2.5 mg Ondansetron HCl (Zofran Injection) 4 mg IVPUSH Q6H PRN PRN Reason: NAUSEA AND/OR VOMITING Thiamine HCl (Vitamin B1 -) 100 mg PO DAILY [facility] Last Admin: 02/26/19 09:12 Dose: 100 mg Tobramycin/Dexamethasone (Tobradex Ophthalmic Suspension -) 1 drop OU BID [facility] Last Admin: 02/26/19 09:13 Dose: 1 drop Microbiology 02/23/19 10:45 Blood - Peripheral Venous Blood Culture - Preliminary NO GROWTH OBTAINED AFTER 72 HOURS, INCUBATION TO CONTINUE FOR 2 DAYS. 02/23/19 10:50 Blood - Peripheral Venous Blood Culture - Preliminary NO GROWTH OBTAINED AFTER 72 HOURS, INCUBATION TO CONTINUE FOR 2 DAYS. 02/23/19 19:00 Urine - Urine - Catheterized Urine Culture - Final NO GROWTH OBTAINED 02/21/19 14:19 Urine - Urine Kunz Urine Culture - Final NO GROWTH OBTAINED Assessment and Plan: R intertrochanteric hip fracture Acute Normocytic anemia Mechanical fall COPD not in exacerbation H/o HTN Lactic acidosis (resolved) Schizophrenia Severe protein calorie malnutrition --Pt with less breath sounds in lower lobes: Lasix 20mg qdialy --S/p 2UPRBC for entire visit --H/H 9.3, 25.8 --Serum osm for assessment of dilution vs. concentration --Pelvic CT noted without any evidence of hematoma; only soft tissue edema/ anasarca --Encourage use of incentive spirometry --Monitor mentation status --LA likely more Type B due to acute decrease after thiamine supplementation --Continue home medications: Zyprexa 2.5mg HS Aricept 10mg qdaily Depakote 250mg BID C[facility] 0.5mg BID --UA pyuria with negative culture --Can d/c Rocephin today FEN: Fluids: Avoid; let fluid balance equalize today Electrolyte abnormalities: HypoMg; repleted MgSulfate Nutrition: Regular PPX: DVT - chemical ppx on hold; scd L leg only GI - Pepcid 20mg BID Dispo: d/c planning to rehab; follow H/H Case discussed with Dr. Edwina Anthony, DO - IM PGY-3 <Desmond Anthony - Last Filed: 02/26/19 15:01> - Note Progress Note: Seen and examined; agree with resident note as documented above aside from as supplemented by myself. Independently verified all historical and physical exam information as well as labs, imaging, and diagnostics. Discussed with consulting teams as indicated as well as resident team. S: Remains hemodynamically stable and afebrile off of abx per ID. Denies any chest pain, shortness of breath, or worsening edema. She states that her pain is controlled and that she was doing well. No dysuria or cough. Continuing to trend Hb; still with negative FOBT. Due to slight drop will repeat PM value and LDH. XF with normal guidelines per cardiology. Given increasing CO2 on daily BMP as well as endorsement of snoring, I suspect LUKE (she is technically underweight but this can of course be seen with it). Also no PFTs are noted in her chart and would like to rule out any underlying COPD. Furthermore, we will begin to angle for placement for early in the next week to an acute rehab with followup with orthopedic sgy as indicated. 10 sys ROS done and negative aside from HPI. VS labs imaging reviewed NAD, AAO, resting in bed RRR s1/2 no mgr No bleeding or enlarging hematoma around operative site Lungs with questionable minimal to no crackles, w/ sym exp NT ND +BS CN2-12 wnl, no fnd Normal mood, appropriate behavior Microbiology reviewed A/P: Patient presents for hip fracture and is s/p repair with Dr. Barba. She was on plavix prior to the procedure and was noted to have drop in Hb after surgery with potential UTI. After initially being treated for UTI, ID stopped all antibiotics and have signed off the case and patient has remained stable off said abx. Furthermore, no bleed was seen surrounding the operative site on the CT scan I obtained yesterday, but it was noted that there is a component of symmetrical anasarca. CV is following and recommends IV lasix PRN 20mg. I gave 1x dose and we will continue to assess and monitor her clinical volume status. She has iron deficiency anemia and I am giving her 1x IV iron (want to avoid PO to not precipitate any postoperative ileus) and will followup PM CBC and LDH. Off all chemical DVT ppx and on SCDs. Hematology input is noted. Full Code <Timothy Bland - Last Filed: 02/26/19 16:43>
--- NOTE | 2019-02-26 13:53 | PN ---
Progress Note, Physician History of Present Illness: Ms. Milligan is an 88 yo female w/ pmh of HTN, COPD, GERD, and schizophrenia transferred from [facility] where she is a resident for evaluation of R hip injury. Patient reportedly fell while getting ready this morning and hurt her R hip. Reports pain at site however has no other complaints at this time. Denies any head injury or LOC. Denies other symptoms at this time. The patient denies chest pain, shortness of breath, headache and dizziness. Denies fever, chills, nausea, vomit, diarrhea and constipation. Denies dysuria, frequency, urgency and hematuria. - Current Medication List Current Medications: Active Medications Acetaminophen (Tylenol -) 650 mg PO Q4H PRN PRN Reason: PAIN LEVEL 4 - 6 Last Admin: 02/23/19 09:57 Dose: 650 mg Benztropine Mesylate (Cogentin -) 0.5 mg PO BID [facility] Last Admin: 02/26/19 09:12 Dose: 0.5 mg Citalopram Hydrobromide (Celexa -) 20 mg PO DAILY [facility] Last Admin: 02/26/19 09:11 Dose: 20 mg Divalproex Sodium (Depakote -) 250 mg PO BID [facility] Last Admin: 02/26/19 09:12 Dose: 250 mg Donepezil HCl (Aricept -) 10 mg PO DAILY [facility] Last Admin: 02/26/19 09:11 Dose: 10 mg Famotidine (Pepcid -) 20 mg PO BID [facility] Last Admin: 02/26/19 09:12 Dose: 20 mg Fentanyl (Sublimaze Injection -) 25 mcg IVPUSH [id number] PRN PRN Reason: PAIN-PACU ORDER X 4 DOSES ONLY Morphine Sulfate (Morphine Sulfate) 1 mg IM Q6H PRN PRN Reason: PAIN LEVEL 6-10 Last Admin: 02/24/19 21:33 Dose: 1 mg Olanzapine (Zyprexa -) 2.5 mg PO HS [facility] Last Admin: 02/25/19 21:42 Dose: 2.5 mg Ondansetron HCl (Zofran Injection) 4 mg IVPUSH Q6H PRN PRN Reason: NAUSEA AND/OR VOMITING Thiamine HCl (Vitamin B1 -) 100 mg PO DAILY [facility] Last Admin: 02/26/19 09:12 Dose: 100 mg Tobramycin/Dexamethasone (Tobradex Ophthalmic Suspension -) 1 drop OU BID [facility] Last Admin: 02/26/19 09:13 Dose: 1 drop - Objective Vital Signs: Vital Signs Temperature 98 F 02/26/19 09:19 Pulse Rate 89 02/26/19 09:19 Respiratory Rate 18 02/26/19 09:19 Blood Pressure 94/59 L 02/26/19 09:19 O2 Sat by Pulse Oximetry (%) 100 02/26/19 09:00 Eyes: Yes: WNL, Conjunctiva Clear, EOM Intact HENT: Yes: WNL, Atraumatic, Normocephalic Neck: Yes: WNL, Supple, Trachea Midline Cardiovascular: Yes: WNL, Regular Rate and Rhythm Respiratory: Yes: WNL, Regular, CTA Bilaterally Gastrointestinal: Yes: WNL, Normal Bowel Sounds Genitourinary: Yes: WNL Musculoskeletal: Yes: WNL Extremities: Yes: WNL Edema: No Integumentary: Yes: WNL Neurological: Yes: WNL, Alert, Oriented ...Motor Strength: WNL Psychiatric: Yes: WNL Labs: CBC, BMP 02/26/19 06:20 02/26/19 06:20 INR, PTT INR 1.18 (0.83-1.09) H 02/25/19 11:20 Problem List - Problems (1) Intertrochanteric fracture Code(s): S72.143A - DISPLACED INTERTROCHANTERIC FRACTURE OF UNSP FEMUR, INIT Qualifiers: Encounter type: initial encounter Fracture type: closed Fracture alignment: nondisplaced Laterality: right Qualified Code(s): S72.144A - Nondisplaced intertrochanteric fracture of right femur, initial encounter for closed fracture (2) Closed head injury Code(s): S09.90XA - UNSPECIFIED INJURY OF HEAD, INITIAL ENCOUNTER (3) Fall Code(s): W19.XXXA - UNSPECIFIED FALL, INITIAL ENCOUNTER (4) Knee pain, acute Code(s): M25.569 - PAIN IN UNSPECIFIED KNEE Assessment/Plan - Problems (1) Anemia Assessment/Plan: worsening anemia post-right hip repair-->PRBCs; for 2nd unit today. r/o bleed at surgical site. Code(s): D64.9 - ANEMIA, UNSPECIFIED (2) Intertrochanteric fracture Assessment/Plan: s/p hip fracture repair. Severely anemic-->PRBCs; r/o bleed at surgical site. Pt alert; mild pain at surgical site. Pulses WNL. Code(s): S72.143A - DISPLACED INTERTROCHANTERIC FRACTURE OF UNSP FEMUR, INIT Qualifiers: Encounter type: initial encounter Fracture type: closed Fracture alignment: nondisplaced Laterality: right Qualified Code(s): S72.144A - Nondisplaced intertrochanteric fracture of right femur, initial encounter for closed fracture (3) Acute on chronic diastolic (congestive) heart failure Assessment/Plan: CT chest: moderate vascular congestion, pleural effusion. Post-PRBCs; for 2nd unit today. Start furosemide IVP 20 mg prn. ECHO: normal LVEF; severe LVH. F/u BUN/Cr, electrolytes, daily weight, Is and Os. Code(s): I50.33 - ACUTE ON CHRONIC DIASTOLIC (CONGESTIVE) HEART FAILURE
[2019-02-26] MEDS: ACETAMINOPHEN 325 MG TABLET (FP) PO PRN (14:00)
--- NOTE | 2019-02-26 14:23 | PN ---
Progress Note (short form) - Note Progress Note: ORTHOPEDIC SURGERY PROGRESS NOTE Department of Orthopedic Surgery SUBJECTIVE No acute events overnight. No complaints currently. Resting comfortably in bed. Denies chest pain, shortness of breath, or calf pain. No nausea or vomiting. Pain controlled and improving. Has been OOB to chair and able to take steps with PT PHYSICAL EXAMINATION General: Currently alert and mildly confused. cooperative and no distress. Right Lower Extremity: Dressing c/d/i; no lesions, rashes or ulcers noted. No signs of hematoma formation subcutaneously, or drainage or infection; Muscle mass equal and symmetric to contralateral side. No atrophy noted. No masses or effusions noted. No tenderness to palpation. Full passive and active ROM of the knee and ankle, free from pain. EHL/TA/GS motor intact; SILT distally; 2+ DP pulses; Cap refill brisk. DVT Exam: No evidence of DVT seen on physical exam; No cords or calf tenderness ; No significant calf/ankle edema. Intake & Output 02/24/19 02/25/19 02/26/19 23:59 23:59 23:59 Intake Total 2000 810 Output Total 675 350 Balance 1325 460 Intake: IV 1800 LACTATED RINGERS SOLUTION 800 1,000 ml In 1,000 ml @ 100 mls/hr IV ASDIR [facility] Rx#:[id number] LACTATED RINGERS SOLUTION 1000 1,000 ml In 1,000 ml @ 500 mls/hr IV ASDIR [facility] Rx#:[id number] IVPB 150 Oral 200 660 Output: Urine 675 350 Kunz 675 350 Other: Voiding Method Indwelling Catheter Diaper Diaper # Unmeasured Voids Kunz 1 2 1 Void 2 Bowel Movement Yes Yes No Active Medications Generic Name Dose Route Start Last Admin Trade Name Freq PRN Reason Stop Dose Admin Acetaminophen 650 mg 02/23/19 09:45 02/26/19 14:00 Tylenol - PO 650 mg Q4H PRN Administration PAIN LEVEL 4 - 6 Benztropine Mesylate 0.5 mg 02/22/19 22:00 02/26/19 09:12 Cogentin - PO 0.5 mg BID [facility] Administration Citalopram Hydrobromide 20 mg 02/23/19 10:00 02/26/19 09:11 Celexa - PO 20 mg DAILY [facility] Administration Divalproex Sodium 250 mg 02/22/19 22:00 02/26/19 09:12 Depakote - PO 250 mg BID [facility] Administration Donepezil HCl 10 mg 02/23/19 10:00 02/26/19 09:11 Aricept - PO 10 mg DAILY [facility] Administration Famotidine 20 mg 02/22/19 22:00 02/26/19 09:12 Pepcid - PO 20 mg BID [facility] Administration Fentanyl 25 mcg 02/22/19 15:05 Sublimaze Injection - IVPUSH [id number] PRN PAIN-PACU ORDER X 4 DOSES ONLY Morphine Sulfate 1 mg 02/22/19 15:15 02/24/19 21:33 Morphine Sulfate IM 1 mg Q6H PRN Administration PAIN LEVEL 6-10 Olanzapine 2.5 mg 02/22/19 22:00 02/25/19 21:42 Zyprexa - PO 2.5 mg HS [facility] Administration Ondansetron HCl 4 mg 02/22/19 15:05 Zofran Injection IVPUSH Q6H PRN NAUSEA AND/OR VOMITING Thiamine HCl 100 mg 02/24/19 10:00 02/26/19 09:12 Vitamin B1 - PO 100 mg DAILY [facility] Administration Tobramycin/Dexamethasone 1 drop 02/22/19 22:00 02/26/19 09:13 Tobradex Ophthalmic Suspension - OU 1 drop BID [facility] Administration Vital Signs (last) Temp Pulse Resp BP Pulse Ox 98 F 89 18 94/59 L 100 02/26/19 09:19 02/26/19 09:19 02/26/19 09:19 02/26/19 09:19 02/26/19 09:00 Laboratory (coagulation) PT with INR 14.00 SEC (9.7-13.0) H 02/25/19 11:20 Laboratory 02/26/19 06:20 02/26/19 06:20 ASSESSMENT AND PLAN Ms. Milligan is an 88 year old female s/p right hip IM nailing POD 4 - Pain control: Transition to oral pain medications, minimize narcotic use - DVT prophylaxis - Ice to Right Hip - F/U Labs - transfuse if necessary - Elevate HOB, encourage oral intake - Appreciate medical / cardio team input - Appreciate hematology input - D/C [place] POD 14 - Follow up in my office POD 14 - Change Dressings Q3 days - Appreciate medical management (Nutrition optimization, decubitus precautions heel/sacrum) - Physical Therapy Daily: WBAT RLE - Dispo planning All questions were answered. Thank you for involving our team in the care of this patient. Please call us at [phone] with questions
[2019-02-26 20:38] LABS: BASO % 0.3 % (0-2.0); EOS % 1.8 % (0-4.5); HEMATOCRIT 25.6 % (32.4-45.2); HEMOGLOBIN 8.7 GM/dL (10.7-15.3); LYMPH % 16.4 % (8-40); MCH 31.8 pg (25.7-33.7); MCHC 33.9 g/dl (32.0-36.0); MEAN CELL VOLUME 93.6 fl (80-96); MEAN PLT VOLUME 9.6 fl (7.5-11.1); MONO % 12.1 % (3.8-10.2); NEUT % 69.4 % (42.8-82.8); PLATELET COUNT 134 K/MM3 (134-434); RBC 2.74 M/mm3 (3.60-5.2); WHITE BLOOD COUNT 5.9 K/mm3 (4.0-10.0)
[2019-02-26] MEDS ORDERED: PT OWN MED DRAWER 7, Y5N ONE ×2 (21:08→22:01)
[2019-02-26] MEDS: OLANZapine 2.5 MG TABLET PO SCH (21:38)
[2019-02-27 06:22] LABS: ALBUMIN 1.9 g/dl (3.4-5.0); BILIRUBIN,TOTAL 0.7 mg/dL (0.2-1); BLOOD UREA NITROGEN 19.5 mg/dL (7-18); CALCIUM 7.8 mg/dL (8.5-10.1); CREATININE 0.4 mg/dL (0.55-1.3); MAGNESIUM 1.7 mg/dL (1.8-2.4); POTASSIUM 4.2 mmol/L (3.5-5.1); TOT PROT 4.8 g/dl (6.4-8.2)
[2019-02-27] MEDS ORDERED: PT OWN MED DRAWER 7, Y5N ONE ×3 (08:45→22:35)
[2019-02-27] MEDS: THIAMINE HCL 100 MG TABLET (FP) PO SCH (09:05)
[2019-02-27] MEDS: DIVALPROEX SODIUM 250 MG TABLET E.C. PO SCH ×2 (09:05→22:38)
[2019-02-27] MEDS: DONEPEZIL HCL 10 MG TABLET (FP) PO SCH (09:05)
[2019-02-27] MEDS: CITALOPRAM HYDROBROMIDE 20 MG TABLET (FP) PO SCH (09:05)
[2019-02-27] MEDS: FAMOTIDINE 20 MG TABLET PO SCH ×2 (09:05→22:38)
[2019-02-27] MEDS: TOBRA 0.3%/DEXAMETH 0.1% OPHTHALMIC SUSP 2.5 ML BTL OU SCH ×2 (09:12→22:44)
[2019-02-27] MEDS: BENZTROPINE MESYLATE 0.5 MG TABLET (FP) PO SCH ×2 (10:00→22:38)
--- NOTE | 2019-02-27 12:08 | PN ---
Progress Note (short form) - Note Progress Note: PULMONARY AWAKE/ALERT MILD DISCOMFORT IN RIGHT LEG VSS/AFEBRILE Constitutional: Yes: NAD, Thin Eyes: Yes: WNL HENT: Yes: WNL Neck: Yes: WNL Cardiovascular: Yes: Regular Rate and Rhythm, S1, S2 Respiratory: Yes: Diminished Gastrointestinal: Yes: Normal Bowel Sounds, Soft Extremities: Yes: WNL Edema: No Labs: REVIEWED CARDIO NOTE REVIEWED IMP R HIP FX(INTERTROCHANTERIC FX) S/P MECHANICAL FALL,S/P NAIL FIXATION FEVER/HYPOTENSION RESOLVED ? BILATERAL PLEURAL EFFUSIONS /ATELECTASIS/?INFILTRATE ? COPD SCHIZOPHRENIA GERD ANEMIA/THROMBOCYTOPENIA ELEVATED LACTATE LEVEL IMPROVED PLAN ABX PER ID O2 NEEDED LASIX PER CARDIO INCENTIVE SPIROMETER DVT PROPHYLAXIS NORMAL TRANSFUSION THRESHOLD PT Alon LAZCNAO MD
--- NOTE | 2019-02-27 12:09 | PN ---
Progress Note, Physician Chief Complaint: Coverage for Dr. Hays Not in distress History of Present Illness: Patient was seen and examined. Awake and alert. Chart was reviewed Denies chest pain, SOB or palpitations - Current Medication List Current Medications: Active Medications Acetaminophen (Tylenol -) 650 mg PO Q4H PRN PRN Reason: PAIN LEVEL 4 - 6 Last Admin: 02/26/19 14:00 Dose: 650 mg Benztropine Mesylate (Cogentin -) 0.5 mg PO BID [facility] Last Admin: 02/27/19 10:00 Dose: 0.5 mg Citalopram Hydrobromide (Celexa -) 20 mg PO DAILY [facility] Last Admin: 02/27/19 09:05 Dose: 20 mg Divalproex Sodium (Depakote -) 250 mg PO BID [facility] Last Admin: 02/27/19 09:05 Dose: 250 mg Donepezil HCl (Aricept -) 10 mg PO DAILY [facility] Last Admin: 02/27/19 09:05 Dose: 10 mg Famotidine (Pepcid -) 20 mg PO BID [facility] Last Admin: 02/27/19 09:05 Dose: 20 mg Fentanyl (Sublimaze Injection -) 25 mcg IVPUSH [id number] PRN PRN Reason: PAIN-PACU ORDER X 4 DOSES ONLY Morphine Sulfate (Morphine Sulfate) 1 mg IM Q6H PRN PRN Reason: PAIN LEVEL 6-10 Last Admin: 02/24/19 21:33 Dose: 1 mg Olanzapine (Zyprexa -) 2.5 mg PO HS [facility] Last Admin: 02/26/19 21:38 Dose: 2.5 mg Ondansetron HCl (Zofran Injection) 4 mg IVPUSH Q6H PRN PRN Reason: NAUSEA AND/OR VOMITING Thiamine HCl (Vitamin B1 -) 100 mg PO DAILY [facility] Last Admin: 02/27/19 09:05 Dose: 100 mg Tobramycin/Dexamethasone (Tobradex Ophthalmic Suspension -) 1 drop OU BID [facility] Last Admin: 02/27/19 09:12 Dose: 1 drop - Objective Vital Signs: Vital Signs Temperature 98.0 F 02/27/19 06:00 Pulse Rate 85 02/27/19 06:00 Respiratory Rate 18 02/27/19 06:00 Blood Pressure 130/85 02/27/19 06:00 O2 Sat by Pulse Oximetry (%) 97 02/27/19 09:00 Eyes: Yes: PERRL HENT: Yes: Atraumatic Neck: Yes: Supple Cardiovascular: Yes: Regular Rate and Rhythm, S1, S2 Respiratory: Yes: Diminished Gastrointestinal: Yes: Normal Bowel Sounds, Soft. No: Tenderness Edema: No Additional Findings/Remarks: - Review of Systems Constitutional: denies: Chills, Fever Cardiovascular: denies Shortness of Breath. denies: Chest Pain, Palpitations Respiratory: denies Cough, SOB, SOB on Exertion. denies: Hemoptysis, Orthopnea , PND Gastrointestinal: denies: Abdominal Pain, Constipation, Diarrhea, Melena, Nausea , Rectal Bleeding, Vomiting Genitourinary: denies: Dysuria, Hematuria Musculoskeletal: denies: Back Pain, Joint Pain Neurological: denies: Dizziness, Headache, Seizure, Syncope Labs: CBC, BMP 02/26/19 20:10 02/27/19 05:24 Problem List - Problems (1) COPD (chronic obstructive pulmonary disease) Code(s): J44.9 - CHRONIC OBSTRUCTIVE PULMONARY DISEASE, UNSPECIFIED (2) Acute on chronic diastolic (congestive) heart failure Code(s): I50.33 - ACUTE ON CHRONIC DIASTOLIC (CONGESTIVE) HEART FAILURE (3) Anemia Code(s): D64.9 - ANEMIA, UNSPECIFIED (4) Hip fracture Code(s): S72.009A - FRACTURE OF UNSP PART OF NECK OF UNSP FEMUR, INIT Assessment/Plan 1. Post ORIF right hip fracture 2. Anemia 3. Acute on chronic LV diastolic failure with vascular congestion, improved 4. COPD PLAN: 1. Current post op management 2. Currently not on any cardiac therapy 3. Monitor CBC. Transfuse as needed Rubio Falk MD
--- NOTE | 2019-02-27 12:29 | PN ---
Progress Note (short form) - Note Progress Note: ORTHOPEDIC SURGERY PROGRESS NOTE Department of Orthopedic Surgery SUBJECTIVE No acute events overnight. No complaints currently. Resting comfortably in bed. Denies chest pain, shortness of breath, or calf pain. No nausea or vomiting. Pain controlled and improving. Has been OOB to chair and able to take steps with PT. Did not have SCD's on when I walked into the room. PHYSICAL EXAMINATION General: Currently alert and mildly confused. cooperative and no distress. Right Lower Extremity: Dressing c/d/i; no lesions, rashes or ulcers noted. No signs of hematoma formation subcutaneously, nor drainage nor infection; No atrophy noted. No masses or effusions noted. No tenderness to palpation. Full passive and active ROM of the knee and ankle, free from pain. EHL/TA/GS motor intact; SILT distally; 2+ DP pulses; Cap refill brisk. DVT Exam: No evidence of DVT seen on physical exam; No cords or calf tenderness ; No significant calf/ankle edema. Intake & Output 02/25/19 02/26/19 02/27/19 23:59 23:59 23:59 Intake Total 810 540 Output Total 350 Balance 460 540 Intake: IVPB 150 Oral 660 540 Output: Urine 350 Kunz 350 Other: Voiding Method Diaper Diaper Diaper # Unmeasured Voids Kunz 2 1 Void 1 2 Bowel Movement Yes No Active Medications Generic Name Dose Route Start Last Admin Trade Name Freq PRN Reason Stop Dose Admin Acetaminophen 650 mg 02/23/19 09:45 02/26/19 14:00 Tylenol - PO 650 mg Q4H PRN Administration PAIN LEVEL 4 - 6 Benztropine Mesylate 0.5 mg 02/22/19 22:00 02/27/19 10:00 Cogentin - PO 0.5 mg BID [facility] Administration Citalopram Hydrobromide 20 mg 02/23/19 10:00 02/27/19 09:05 Celexa - PO 20 mg DAILY [facility] Administration Divalproex Sodium 250 mg 02/22/19 22:00 02/27/19 09:05 Depakote - PO 250 mg BID [facility] Administration Donepezil HCl 10 mg 02/23/19 10:00 02/27/19 09:05 Aricept - PO 10 mg DAILY [facility] Administration Famotidine 20 mg 02/22/19 22:00 02/27/19 09:05 Pepcid - PO 20 mg BID [facility] Administration Fentanyl 25 mcg 02/22/19 15:05 Sublimaze Injection - IVPUSH [id number] PRN PAIN-PACU ORDER X 4 DOSES ONLY Morphine Sulfate 1 mg 02/22/19 15:15 02/24/19 21:33 Morphine Sulfate IM 1 mg Q6H PRN Administration PAIN LEVEL 6-10 Olanzapine 2.5 mg 02/22/19 22:00 02/26/19 21:38 Zyprexa - PO 2.5 mg HS [facility] Administration Ondansetron HCl 4 mg 02/22/19 15:05 Zofran Injection IVPUSH Q6H PRN NAUSEA AND/OR VOMITING Thiamine HCl 100 mg 02/24/19 10:00 02/27/19 09:05 Vitamin B1 - PO 100 mg DAILY [facility] Administration Tobramycin/Dexamethasone 1 drop 02/22/19 22:00 02/27/19 09:12 Tobradex Ophthalmic Suspension - OU 1 drop BID [facility] Administration Vital Signs (last) Temp Pulse Resp BP Pulse Ox 98.0 F 85 18 130/85 97 02/27/19 06:00 02/27/19 06:00 02/27/19 06:00 02/27/19 06:00 02/27/19 09:00 Laboratory (coagulation) PT with INR 14.00 SEC (9.7-13.0) H 02/25/19 11:20 Laboratory 02/26/19 20:10 02/27/19 05:24 ASSESSMENT AND PLAN Ms. Milligan is an 88 year old female s/p right hip IM nailing POD 5 - Pain control: Transition to oral pain medications, minimize narcotic use - DVT prophylaxis - Discussed importance of SCD's to be on and working while in bed with the nursing staff as well as the patient. Resume chemoprophylaxis as per medicine. - Ice to Right Hip - F/U today's labs - transfuse if necessary - Elevate HOB, encourage oral intake - Appreciate medical / cardio team input - D/C [place] POD 14 - Follow up in my office POD 14 - Change Dressings Q3 days - Appreciate medical management (Nutrition optimization, decubitus precautions heel/sacrum) - Physical Therapy Daily: WBAT RLE - Dispo planning All questions were answered. Thank you for involving our team in the care of this patient. Please call us at [phone] with questions
[2019-02-27 13:15] LABS: BASO % 2.2 % (0-2.0); EOS % 2.9 % (0-4.5); HEMATOCRIT 26.7 % (32.4-45.2); HEMOGLOBIN 8.9 GM/dL (10.7-15.3); MCH 31.5 pg (25.7-33.7); MCHC 33.2 g/dl (32.0-36.0); MEAN CELL VOLUME 94.9 fl (80-96); MONO % 12.4 % (3.8-10.2); NEUT % 65.5 % (42.8-82.8); PLATELET COUNT 128 K/MM3 (134-434); RBC 2.82 M/mm3 (3.60-5.2); RDW 14.3 % (11.6-15.6); WHITE BLOOD COUNT 4.7 K/mm3 (4.0-10.0)
--- NOTE | 2019-02-27 13:40 | PN ---
Physical Exam: SUBJECTIVE: Patient seen and examined she is comfortable and has no pain sp hip surgery her cbc is stable today and has no drop in her hb OBJECTIVE: Vital Signs Period Temp Pulse Resp BP Sys/Hansen Pulse Ox Last 24 Hr 97.7 F-98.6 F 85-103 18-20 99-149/64-99 97-99 GENERAL: The patient is awake, alert, HEAD: Normal with no signs of trauma. EYES: PERRL, extraocular movements intact, sclera anicteric, conjunctiva clear. No ptosis. LUNGS: Breath sounds equal, clear to auscultation bilaterally, no wheezes, no crackles, no accessory muscle use. HEART: Regular rate and rhythm, S1, S2 without murmur, rub or gallop. ABDOMEN: Soft, nontender, nondistended, normoactive bowel sounds, no guarding, no rebound, no hepatosplenomegaly, no masses. EXTREMITIES: 2+ pulses, warm, well-perfused, no edema. NEUROLOGICAL: alert and awake Laboratory Results - last 24 hr 02/23/19 02/25/19 02/26/19 14:30 11:20 06:20 WBC RBC Hgb Hct MCV MCH MCHC RDW Plt Count MPV Absolute Neuts (auto) Neutrophils % Lymphocytes % Monocytes % Eosinophils % Basophils % Nucleated RBC % Sodium Potassium Chloride Carbon Dioxide Anion Gap BUN Creatinine Est GFR (CKD-EPI)AfAm Est GFR (CKD-EPI)NonAf Random Glucose Serum Osmolality 285 Calcium Magnesium Iron 26 L TIBC 181 L Iron Saturation 14 L Unsaturated IBC 155 L Total Bilirubin AST ALT Alkaline Phosphatase Total Protein Albumin Heparin-Ind Plt Ab Scrn 0.081 02/26/19 02/27/19 02/27/19 20:10 05:24 05:52 WBC 5.9 4.7 RBC 2.74 L 2.82 L Hgb 8.7 L 8.9 L Hct 25.6 L 26.7 L MCV 93.6 94.9 MCH 31.8 31.5 MCHC 33.9 33.2 RDW 14.0 14.3 Plt Count 134 128 L MPV 9.6 9.0 Absolute Neuts (auto) 4.1 3.1 Neutrophils % 69.4 65.5 Lymphocytes % 16.4 17.0 Monocytes % 12.1 H 12.4 H Eosinophils % 1.8 D 2.9 Basophils % 0.3 2.2 H D Nucleated RBC % 0 0 Sodium 137 Potassium 4.2 Chloride 100 Carbon Dioxide 34 H Anion Gap 3 L BUN 19.5 H Creatinine 0.4 L Est GFR (CKD-EPI)AfAm 108.54 Est GFR (CKD-EPI)NonAf 93.65 Random Glucose 82 Serum Osmolality Calcium 7.8 L Magnesium 1.7 L Iron TIBC Iron Saturation Unsaturated IBC Total Bilirubin 0.7 AST 15 ALT 11 L Alkaline Phosphatase 40 L Total Protein 4.8 L Albumin 1.9 L Heparin-Ind Plt Ab Scrn Active Medications Generic Name Dose Route Start Last Admin Trade Name Freq PRN Reason Stop Dose Admin Acetaminophen 650 mg 02/23/19 09:45 02/26/19 14:00 Tylenol - PO 650 mg Q4H PRN Administration PAIN LEVEL 4 - 6 Benztropine Mesylate 0.5 mg 02/22/19 22:00 02/27/19 10:00 Cogentin - PO 0.5 mg BID [facility] Administration Citalopram Hydrobromide 20 mg 02/23/19 10:00 02/27/19 09:05 Celexa - PO 20 mg DAILY [facility] Administration Divalproex Sodium 250 mg 02/22/19 22:00 02/27/19 09:05 Depakote - PO 250 mg BID [facility] Administration Donepezil HCl 10 mg 02/23/19 10:00 02/27/19 09:05 Aricept - PO 10 mg DAILY [facility] Administration Famotidine 20 mg 02/22/19 22:00 02/27/19 09:05 Pepcid - PO 20 mg BID [facility] Administration Fentanyl 25 mcg 02/22/19 15:05 Sublimaze Injection - IVPUSH [id number] PRN PAIN-PACU ORDER X 4 DOSES ONLY Heparin Sodium (Porcine) 5,000 unit 02/27/19 13:45 Heparin - IVPUSH BID [facility] Morphine Sulfate 1 mg 02/22/19 15:15 02/24/19 21:33 Morphine Sulfate IM 1 mg Q6H PRN Administration PAIN LEVEL 6-10 Olanzapine 2.5 mg 02/22/19 22:00 02/26/19 21:38 Zyprexa - PO 2.5 mg HS [facility] Administration Ondansetron HCl 4 mg 02/22/19 15:05 Zofran Injection IVPUSH Q6H PRN NAUSEA AND/OR VOMITING Thiamine HCl 100 mg 02/24/19 10:00 02/27/19 09:05 Vitamin B1 - PO 100 mg DAILY [facility] Administration Tobramycin/Dexamethasone 1 drop 02/22/19 22:00 02/27/19 09:12 Tobradex Ophthalmic Suspension - OU 1 drop BID [facility] Administration ASSESSMENT/PLAN: R intertrochanteric hip fracture s/p repair Acute Normocytic anemia stable and twice stool neg for occult blood Mechanical fall COPD HTN Schizophrenia stable Severe protein calorie malnutrition --S/p 2UPRBC for entire visit --H/H 8.9 stable and better than before --Pelvic CT noted without any evidence of hematoma; only soft tissue edema/ anasarca --Encourage use of incentive spirometry will start on heparin sq bid at lower dose bc she has low weight. Visit type - Emergency Visit Emergency Visit: Yes ED Registration Date: 02/21/19 Care time: The patient presented to the Emergency Department on the above date and was hospitalized for further evaluation of their emergent condition. - New Patient This patient is new to me today: Yes Date on this admission: 02/27/19 - Critical Care Critical Care patient: No - Discharge Referral Referred to [facility] Med P.C.: No
[2019-02-27] MEDS: HEPARIN NA (PORCINE) 5,000 UNITS/ML 1ML VIAL SQ SCH ×2 (13:49→22:38)
[2019-02-27 17:41] LABS: BASO % 0.4 % (0-2.0); EOS % 2.1 % (0-4.5); HEMATOCRIT 28.5 % (32.4-45.2); HEMOGLOBIN 9.7 GM/dL (10.7-15.3); LYMPH % 20.1 % (8-40); MCH 32.3 pg (25.7-33.7); MEAN CELL VOLUME 95.1 fl (80-96); MEAN PLT VOLUME 9.3 fl (7.5-11.1); MONO % 13.2 % (3.8-10.2); NEUT % 64.2 % (42.8-82.8); PLATELET COUNT 184 K/MM3 (134-434); RDW 14.4 % (11.6-15.6)
[2019-02-27] MEDS: ACETAMINOPHEN 325 MG TABLET (FP) PO PRN ×2 (18:20→22:39)
[2019-02-27] MEDS: OLANZapine 2.5 MG TABLET PO SCH (22:38)
[2019-02-28 06:11] LABS: BASO % 0.5 % (0-2.0); EOS % 2.6 % (0-4.5); HEMATOCRIT 27.1 % (32.4-45.2); HEMOGLOBIN 9.4 GM/dL (10.7-15.3); LYMPH % 20.7 % (8-40); MCH 33.1 pg (25.7-33.7); MCHC 34.7 g/dl (32.0-36.0); MEAN CELL VOLUME 95.3 fl (80-96); MEAN PLT VOLUME 8.9 fl (7.5-11.1); MONO % 16.3 % (3.8-10.2); NEUT % 59.9 % (42.8-82.8); PLATELET COUNT 176 K/MM3 (134-434); RBC 2.85 M/mm3 (3.60-5.2); RDW 14.6 % (11.6-15.6); WHITE BLOOD COUNT 4.2 K/mm3 (4.0-10.0)
--- NOTE | 2019-02-28 09:38 | PN ---
Progress Note, Physician Chief Complaint: Coverage for Dr. Hays Not in distress History of Present Illness: Patient was seen and examined. Awake and alert. Chart was reviewed Denies chest pain, SOB or palpitations - Current Medication List Current Medications: Active Medications Acetaminophen (Tylenol -) 650 mg PO Q4H PRN PRN Reason: PAIN LEVEL 4 - 6 Last Admin: 02/27/19 22:39 Dose: 650 mg Benztropine Mesylate (Cogentin -) 0.5 mg PO BID [facility] Last Admin: 02/27/19 22:38 Dose: 0.5 mg Citalopram Hydrobromide (Celexa -) 20 mg PO DAILY [facility] Last Admin: 02/27/19 09:05 Dose: 20 mg Divalproex Sodium (Depakote -) 250 mg PO BID [facility] Last Admin: 02/27/19 22:38 Dose: 250 mg Donepezil HCl (Aricept -) 10 mg PO DAILY [facility] Last Admin: 02/27/19 09:05 Dose: 10 mg Famotidine (Pepcid -) 20 mg PO BID [facility] Last Admin: 02/27/19 22:38 Dose: 20 mg Fentanyl (Sublimaze Injection -) 25 mcg IVPUSH [id number] PRN PRN Reason: PAIN-PACU ORDER X 4 DOSES ONLY Heparin Sodium (Porcine) (Heparin -) 5,000 unit SQ BID [facility] Last Admin: 02/27/19 22:38 Dose: 5,000 unit Olanzapine (Zyprexa -) 2.5 mg PO HS [facility] Last Admin: 02/27/19 22:38 Dose: 2.5 mg Ondansetron HCl (Zofran Injection) 4 mg IVPUSH Q6H PRN PRN Reason: NAUSEA AND/OR VOMITING Thiamine HCl (Vitamin B1 -) 100 mg PO DAILY [facility] Last Admin: 02/27/19 09:05 Dose: 100 mg Tobramycin/Dexamethasone (Tobradex Ophthalmic Suspension -) 1 drop OU BID [facility] Last Admin: 02/27/19 22:44 Dose: 1 drop - Objective Vital Signs: Vital Signs Temperature 97.7 F 02/28/19 05:00 Pulse Rate 81 02/28/19 05:00 Respiratory Rate 16 02/28/19 05:00 Blood Pressure 113/62 02/28/19 05:00 O2 Sat by Pulse Oximetry (%) 97 02/27/19 20:02 Eyes: Yes: PERRL HENT: Yes: Atraumatic Neck: Yes: Supple Cardiovascular: Yes: Regular Rate and Rhythm, S1, S2 Respiratory: Yes: CTA Bilaterally Gastrointestinal: Yes: Normal Bowel Sounds, Soft. No: Tenderness Edema: No Additional Findings/Remarks: - Review of Systems Constitutional: denies: Chills, Fever Cardiovascular: denies Shortness of Breath. denies: Chest Pain, Palpitations Respiratory: denies Cough, SOB, SOB on Exertion. denies: Hemoptysis, Orthopnea , PND Gastrointestinal: denies: Abdominal Pain, Constipation, Diarrhea, Melena, Nausea , Rectal Bleeding, Vomiting Genitourinary: denies: Dysuria, Hematuria Musculoskeletal: denies: Back Pain, Joint Pain Neurological: denies: Dizziness, Headache, Seizure, Syncope Labs: CBC, BMP 02/28/19 05:32 02/27/19 05:24 Problem List - Problems (1) COPD (chronic obstructive pulmonary disease) Code(s): J44.9 - CHRONIC OBSTRUCTIVE PULMONARY DISEASE, UNSPECIFIED (2) Acute on chronic diastolic (congestive) heart failure Code(s): I50.33 - ACUTE ON CHRONIC DIASTOLIC (CONGESTIVE) HEART FAILURE (3) Anemia Code(s): D64.9 - ANEMIA, UNSPECIFIED (4) Hip fracture Code(s): S72.009A - FRACTURE OF UNSP PART OF NECK OF UNSP FEMUR, INIT Assessment/Plan 1. Post ORIF right hip fracture 2. Anemia 3. Acute on chronic LV diastolic failure with vascular congestion, improved 4. COPD PLAN: 1. Current post op management 2. Currently not on any cardiac therapy 3. Monitor CBC. Transfuse as needed 4. PT Dr. Gonzalez to resume care in AM Rubio Falk MD
[2019-02-28] MEDS ORDERED: PT OWN MED DRAWER 7, Y5N ONE (10:32)
[2019-02-28] MEDS: CITALOPRAM HYDROBROMIDE 20 MG TABLET (FP) PO SCH (10:50)
[2019-02-28] MEDS: DIVALPROEX SODIUM 250 MG TABLET E.C. PO SCH ×2 (10:50→21:26)
[2019-02-28] MEDS: THIAMINE HCL 100 MG TABLET (FP) PO SCH (10:51)
[2019-02-28] MEDS: HEPARIN NA (PORCINE) 5,000 UNITS/ML 1ML VIAL SQ SCH ×2 (10:51→21:26)
[2019-02-28] MEDS: FAMOTIDINE 20 MG TABLET PO SCH ×2 (10:51→21:26)
[2019-02-28] MEDS: DONEPEZIL HCL 10 MG TABLET (FP) PO SCH (10:51)
[2019-02-28] MEDS: BENZTROPINE MESYLATE 0.5 MG TABLET (FP) PO SCH ×2 (10:51→21:27)
[2019-02-28] MEDS: TOBRA 0.3%/DEXAMETH 0.1% OPHTHALMIC SUSP 2.5 ML BTL OU SCH ×2 (10:52→21:27)
--- NOTE | 2019-02-28 11:33 | PN ---
Progress Note (short form) - Note Progress Note: PULMONARY AWAKE/ALERT MILD DISCOMFORT IN RIGHT LEG VSS/AFEBRILE Constitutional: Yes: NAD, Thin Eyes: Yes: WNL HENT: Yes: WNL Neck: Yes: WNL Cardiovascular: Yes: Regular Rate and Rhythm, S1, S2 Respiratory: Yes: Diminished Gastrointestinal: Yes: Normal Bowel Sounds, Soft Extremities: Yes: WNL Edema: No Labs: REVIEWED/ hgb stable CARDIO NOTE REVIEWED IMP R HIP FX(INTERTROCHANTERIC FX) S/P MECHANICAL FALL,S/P NAIL FIXATION FEVER/HYPOTENSION RESOLVED ? BILATERAL PLEURAL EFFUSIONS /ATELECTASIS/?INFILTRATE ? COPD SCHIZOPHRENIA GERD ANEMIA/THROMBOCYTOPENIA ELEVATED LACTATE LEVEL IMPROVED PLAN O2 NEEDED LASIX PER CARDIO INCENTIVE SPIROMETER DVT PROPHYLAXIS NORMAL TRANSFUSION THRESHOLD PT Alon LAZCANO MD
--- NOTE | 2019-02-28 13:13 | PN ---
Progress Note (short form) - Note Progress Note: ORTHOPEDIC SURGERY PROGRESS NOTE Department of Orthopedic Surgery SUBJECTIVE No acute events overnight. No complaints currently. Resting comfortably in bed. Denies chest pain, shortness of breath, or calf pain. No nausea or vomiting. Pain controlled and improving. Patient ambulating well with PT. PHYSICAL EXAMINATION General: Currently alert and mildly confused. cooperative and no distress. Right Lower Extremity: Dressing c/d/i; no lesions, rashes or ulcers noted. No signs of hematoma formation subcutaneously, nor drainage nor infection; No atrophy noted. No masses or effusions noted. No tenderness to palpation. Full passive and active ROM of the knee and ankle, free from pain. EHL/TA/GS motor intact; SILT distally; 2+ DP pulses; Cap refill brisk. DVT Exam: No evidence of DVT seen on physical exam; No cords or calf tenderness ; No significant calf/ankle edema. Intake & Output 02/26/19 02/27/19 02/28/19 23:59 23:59 22:59 Intake Total 540 970 Balance 540 970 Intake: IV 10 LFA #22 02/26 10 Oral 540 960 Other: Voiding Method Diaper Incontinent Incontinent # Unmeasured Voids Kunz 1 Void 1 2 1 Bowel Movement No No Active Medications Generic Name Dose Route Start Last Admin Trade Name Freq PRN Reason Stop Dose Admin Acetaminophen 650 mg 02/23/19 09:45 02/27/19 22:39 Tylenol - PO 650 mg Q4H PRN Administration PAIN LEVEL 4 - 6 Benztropine Mesylate 0.5 mg 02/22/19 22:00 02/28/19 10:51 Cogentin - PO 0.5 mg BID [facility]ON Administration Citalopram Hydrobromide 20 mg 02/23/19 10:00 02/28/19 10:50 Celexa - PO 20 mg DAILY [facility] Administration Divalproex Sodium 250 mg 02/22/19 22:00 02/28/19 10:50 Depakote - PO 250 mg BID [facility] Administration Donepezil HCl 10 mg 02/23/19 10:00 02/28/19 10:51 Aricept - PO 10 mg DAILY [facility] Administration Famotidine 20 mg 02/22/19 22:00 02/28/19 10:51 Pepcid - PO 20 mg BID [facility] Administration Fentanyl 25 mcg 02/22/19 15:05 Sublimaze Injection - IVPUSH [id number] PRN PAIN-PACU ORDER X 4 DOSES ONLY Heparin Sodium (Porcine) 5,000 unit 02/27/19 13:45 02/28/19 10:51 Heparin - SQ 5,000 unit BID [facility] Administration Olanzapine 2.5 mg 02/22/19 22:00 02/27/19 22:38 Zyprexa - PO 2.5 mg HS [facility] Administration Ondansetron HCl 4 mg 02/22/19 15:05 Zofran Injection IVPUSH Q6H PRN NAUSEA AND/OR VOMITING Thiamine HCl 100 mg 02/24/19 10:00 02/28/19 10:51 Vitamin B1 - PO 100 mg DAILY [facility] Administration Tobramycin/Dexamethasone 1 drop 02/22/19 22:00 02/28/19 10:52 Tobradex Ophthalmic Suspension - OU 1 drop BID [facility] Administration Vital Signs (last) Temp Pulse Resp BP Pulse Ox 98 F 98 H 16 93/57 L 95 02/28/19 10:00 02/28/19 10:00 02/28/19 10:00 02/28/19 10:00 02/28/19 09:00 Laboratory (coagulation) PT with INR 14.00 SEC (9.7-13.0) H 02/25/19 11:20 Laboratory 02/28/19 05:32 02/27/19 05:24 ASSESSMENT AND PLAN Ms. Milligan is an 88 year old female s/p right hip IM nailing POD 6. Doing well post-operatively. - Pain control: Transition to oral pain medications, minimize narcotic use - DVT prophylaxis - Continue Heparin x 4 weeks total post-operatively; Discussed importance of SCD's to be on and working while in bed with the nursing staff as well as the patient. - Ice to Right Hip - F/U AM Labs - Elevate HOB, encourage oral intake - Appreciate medical / cardio team input - D/C Piotr POD 14 - Follow up in my office POD 14 - Change to new aquacell dressing before discharge. - Appreciate medical management (Nutrition optimization, decubitus precautions heel/sacrum) - Physical Therapy Daily: WBAT RLE - Dispo planning All questions were answered. Thank you for involving our team in the care of this patient. Please call us at [phone] with questions
--- NOTE | 2019-02-28 14:05 | PN ---
Physical Exam: SUBJECTIVE: Patient seen and examined no fever or chills, no bleeding. no fever or chills. she is eating well, and seen by ortho and pulmonary. OBJECTIVE: Vital Signs Period Temp Pulse Resp BP Sys/Hansen Pulse Ox Last 24 Hr 97.7 F-99.2 F 81-100 16-18 92-123/56-65 95-97 GENERAL: The patient is awake, alert, NECK: Trachea midline, full range of motion, supple. LUNGS: Breath sounds equal, clear to auscultation bilaterally, no wheezes, no crackles, no accessory muscle use. HEART: Regular rate and rhythm, S1, S2 without murmur, rub or gallop. ABDOMEN: Soft, nontender, nondistended, normoactive bowel sounds, no guarding, no rebound, no hepatosplenomegaly, no masses. EXTREMITIES: 2+ pulses, warm, well-perfused, no edema. NEUROLOGICAL: Cranial nerves II through XII grossly intact. Normal speech, gait not observed. Laboratory Results - last 24 hr 02/25/19 02/27/19 02/28/19 11:20 16:48 05:32 WBC 5.0 4.2 RBC 3.00 L 2.85 L Hgb 9.7 L 9.4 L Hct 28.5 L 27.1 L MCV 95.1 95.3 MCH 32.3 33.1 MCHC 34.0 34.7 RDW 14.4 14.6 Plt Count 184 D 176 MPV 9.3 8.9 Absolute Neuts (auto) 3.2 2.5 Neutrophils % 64.2 59.9 Lymphocytes % 20.1 20.7 Monocytes % 13.2 H 16.3 H Eosinophils % 2.1 2.6 Basophils % 0.4 0.5 Nucleated RBC % 0 0 Blood Type A POSITIVE Antibody Screen Negative Crossmatch See Detail Active Medications Generic Name Dose Route Start Last Admin Trade Name Freq PRN Reason Stop Dose Admin Acetaminophen 650 mg 02/23/19 09:45 02/27/19 22:39 Tylenol - PO 650 mg Q4H PRN Administration PAIN LEVEL 4 - 6 Benztropine Mesylate 0.5 mg 02/22/19 22:00 02/28/19 10:51 Cogentin - PO 0.5 mg BID M[facility]ON Administration Citalopram Hydrobromide 20 mg 02/23/19 10:00 02/28/19 10:50 Celexa - PO 20 mg DAILY [facility] Administration Divalproex Sodium 250 mg 02/22/19 22:00 02/28/19 10:50 Depakote - PO 250 mg BID M[facility]ON Administration Donepezil HCl 10 mg 02/23/19 10:00 02/28/19 10:51 Aricept - PO 10 mg DAILY [facility] Administration Famotidine 20 mg 02/22/19 22:00 02/28/19 10:51 Pepcid - PO 20 mg BID M[facility]ON Administration Fentanyl 25 mcg 02/22/19 15:05 Sublimaze Injection - IVPUSH [id number] PRN PAIN-PACU ORDER X 4 DOSES ONLY Heparin Sodium (Porcine) 5,000 unit 02/27/19 13:45 02/28/19 10:51 Heparin - SQ 5,000 unit BID [facility]ON Administration Olanzapine 2.5 mg 02/22/19 22:00 02/27/19 22:38 Zyprexa - PO 2.5 mg HS M[facility]ON Administration Ondansetron HCl 4 mg 02/22/19 15:05 Zofran Injection IVPUSH Q6H PRN NAUSEA AND/OR VOMITING Thiamine HCl 100 mg 02/24/19 10:00 02/28/19 10:51 Vitamin B1 - PO 100 mg DAILY [facility] Administration Tobramycin/Dexamethasone 1 drop 02/22/19 22:00 02/28/19 10:52 Tobradex Ophthalmic Suspension - OU 1 drop BID MADYSON Administration ASSESSMENT/PLAN: ASSESSMENT/PLAN: R intertrochanteric hip fracture s/p repair Acute Normocytic anemia stable and twice stool neg for occult blood Mechanical fall COPD HTN Schizophrenia stable Severe protein calorie malnutrition --S/p 2UPRBC for entire visit--H/H 9.4 stable and better than before --Encourage use of incentive spirometry on heparin sq bid at lower dose bc she has low weight. d/c planning and physical therapy, Problem List - Problems (1) Acute on chronic diastolic (congestive) heart failure Assessment/Plan: pt is stable and has no shortness of breath and will continue the current medications. Code(s): I50.33 - ACUTE ON CHRONIC DIASTOLIC (CONGESTIVE) HEART FAILURE (2) Anemia Assessment/Plan: she has no sign of bleeding and her hemoglobins is stable and will continue to monitor Code(s): D64.9 - ANEMIA, UNSPECIFIED (3) COPD (chronic obstructive pulmonary disease) Assessment/Plan: no shortness of breath and seenby pulmonary, and will continue nebulizer. Code(s): J44.9 - CHRONIC OBSTRUCTIVE PULMONARY DISEASE, UNSPECIFIED (4) Intertrochanteric fracture Assessment/Plan: s/p surgery and she is stable and will continue her pt Code(s): S72.143A - DISPLACED INTERTROCHANTERIC FRACTURE OF UNSP FEMUR, INIT Qualifiers: Encounter type: initial encounter Fracture type: closed Fracture alignment: nondisplaced Laterality: right Qualified Code(s): S72.144A - Nondisplaced intertrochanteric fracture of right femur, initial encounter for closed fracture Visit type - Emergency Visit Emergency Visit: Yes ED Registration Date: 02/21/19 Care time: The patient presented to the Emergency Department on the above date and was hospitalized for further evaluation of their emergent condition. - New Patient This patient is new to me today: No - Critical Care Critical Care patient: No - Discharge Referral Referred to [facility] Med P.C.: No
[2019-02-28] MEDS: OLANZapine 2.5 MG TABLET PO SCH (21:26)
[2019-03-01 06:47] LABS: BASO % 0.5 % (0-2.0); EOS % 2.3 % (0-4.5); HEMATOCRIT 25.2 % (32.4-45.2); HEMOGLOBIN 8.4 GM/dL (10.7-15.3); LYMPH % 19.3 % (8-40); MCH 32.1 pg (25.7-33.7); MCHC 33.3 g/dl (32.0-36.0); MEAN CELL VOLUME 96.4 fl (80-96); MEAN PLT VOLUME 8.5 fl (7.5-11.1); MONO % 16.6 % (3.8-10.2); NEUT % 61.3 % (42.8-82.8); PLATELET COUNT 180 K/MM3 (134-434); RBC 2.62 M/mm3 (3.60-5.2); WHITE BLOOD COUNT 4.5 K/mm3 (4.0-10.0)
[2019-03-01] MEDS ORDERED: CEFTRIAXONE 1 GM in DEXTROSE 5%-WATER - 50 ML IVPB ONE (07:20)
[2019-03-01] MEDS ORDERED: ACETAMINOPHEN 325 MG TABLET (FP) PO PRN (07:20)
[2019-03-01] MEDS ORDERED: ONDANSETRON 4 MG/2 ML VIAL IVPUSH PRN (07:20)
--- NOTE | 2019-03-01 08:25 | PN ---
Teaching Attending Note Name of Resident: Desmond Anthony ATTENDING PHYSICIAN STATEMENT I saw and evaluated the patient. I reviewed the resident's note and discussed the case with the resident. I agree with the resident's findings and plan as documented. SUBJECTIVE: Patient has no complaints. OBJECTIVE: Vital Signs Period Temp Pulse Resp BP Sys/Hansen Pulse Ox Last 24 Hr 97.9 F-98.9 F 82-104 16-18 93-110/57-81 95-97 HEART: S1S2, RRR LUNGS: Clear ABDOMEN: Soft, non-tender, non-distended, normal BS EXTREMITIES: No edema Laboratory Results - last 24 hr 02/25/19 02/28/19 03/01/19 11:20 13:30 05:45 WBC 4.5 RBC 2.62 L Hgb 8.4 L Hct 25.2 L MCV 96.4 H MCH 32.1 MCHC 33.3 RDW 15.0 Plt Count 180 MPV 8.5 Absolute Neuts (auto) 2.8 Neutrophils % 61.3 Lymphocytes % 19.3 Monocytes % 16.6 H Eosinophils % 2.3 Basophils % 0.5 Nucleated RBC % 0 Stool Occult Blood Negative Blood Type A POSITIVE Antibody Screen Negative Crossmatch See Detail Current Medications Generic Name Dose Route Start Last Admin Trade Name Freq PRN Reason Stop Dose Admin Acetaminophen 650 mg 03/01/19 07:20 Tylenol - PO Q4H PRN PAIN LEVEL 4 - 6 Benztropine Mesylate 0.5 mg 03/01/19 10:00 Cogentin - PO BID [facility] Citalopram Hydrobromide 20 mg 03/01/19 10:00 Celexa - PO DAILY [facility] Divalproex Sodium 250 mg 03/01/19 10:00 Depakote - PO BID [facility] Donepezil HCl 10 mg 03/01/19 10:00 Aricept - PO DAILY [facility] Famotidine 20 mg 03/01/19 10:00 Pepcid - PO BID [facility] Heparin Sodium (Porcine) 5,000 unit 02/27/19 13:45 02/28/19 21:26 Heparin - SQ 5,000 unit BID [facility] Administration Ceftriaxone Sodium 1 gm/ 50 mls @ 100 mls/hr 03/01/19 07:20 Dextrose IVPB 03/01/19 07:49 ONCE ONE Olanzapine 2.5 mg 03/01/19 22:00 Zyprexa - PO HS [facility] Ondansetron HCl 4 mg 03/01/19 07:20 Zofran Injection IVPUSH Q6H PRN NAUSEA AND/OR VOMITING Thiamine HCl 100 mg 03/01/19 10:00 Vitamin B1 - PO DAILY [facility] Tobramycin/Dexamethasone 1 drop 03/01/19 10:00 Tobradex Ophthalmic Suspension - OU BID [facility] ASSESSMENT AND PLAN: This is an 88 year old woman with a history of HTN, COPD, GERD, schizophrenia who presented to the ED from [facility] with right hip pain. 1. Intertrochanteric right hip fracture - s/p IM nailing on 02/22 - Continue PT - Plan for short term rehab 2. Acute anemia - Iron, TIBC, iron saturation all low with normal ferritin - Transfused 2 units PRBCs during this admission - No evidence of bleeding - Continue to monitor hemoglobin 3. s/p fall 4. COPD - Stable 5. HTN - BP is ok on no medication 6. GERD - Continue Pepcid 7. Schizophrenia - Continue Depakote, Zyprexa, Cogentin 8. Lactic acidosis, resolved 9. Severe protein calorie malnutrition
[2019-03-01] MEDS: DIVALPROEX SODIUM 250 MG TABLET E.C. PO SCH ×2 (10:00→21:48)
[2019-03-01] MEDS: THIAMINE HCL 100 MG TABLET (FP) PO SCH (10:00)
[2019-03-01] MEDS: FAMOTIDINE 20 MG TABLET PO SCH ×2 (10:01→21:48)
[2019-03-01] MEDS: HEPARIN NA (PORCINE) 5,000 UNITS/ML 1ML VIAL SQ SCH ×2 (10:02→21:49)
[2019-03-01] MEDS: CITALOPRAM HYDROBROMIDE 20 MG TABLET (FP) PO SCH (10:02)
[2019-03-01] MEDS: BENZTROPINE MESYLATE 0.5 MG TABLET (FP) PO SCH ×2 (10:02→21:49)
[2019-03-01] MEDS: TOBRA 0.3%/DEXAMETH 0.1% OPHTHALMIC SUSP 2.5 ML BTL OU SCH ×2 (10:04→21:50)
--- NOTE | 2019-03-01 12:32 | PN ---
Progress Note, Physician History of Present Illness: Ms. Milligan is an 88 yo female w/ pmh of HTN, COPD, GERD, and schizophrenia transferred from [facility] where she is a resident for evaluation of R hip injury. Patient reportedly fell while getting ready this morning and hurt her R hip. Reports pain at site however has no other complaints at this time. Denies any head injury or LOC. Denies other symptoms at this time. The patient denies chest pain, shortness of breath, headache and dizziness. Denies fever, chills, nausea, vomit, diarrhea and constipation. Denies dysuria, frequency, urgency and hematuria. - Current Medication List Current Medications: Active Medications Acetaminophen (Tylenol -) 650 mg PO Q4H PRN PRN Reason: PAIN LEVEL 4 - 6 Last Admin: 03/01/19 10:02 Dose: 650 mg Benztropine Mesylate (Cogentin -) 0.5 mg PO BID [facility] Last Admin: 03/01/19 10:02 Dose: 0.5 mg Citalopram Hydrobromide (Celexa -) 20 mg PO DAILY [facility] Last Admin: 03/01/19 10:02 Dose: 20 mg Divalproex Sodium (Depakote -) 250 mg PO BID [facility] Last Admin: 03/01/19 10:00 Dose: 250 mg Donepezil HCl (Aricept -) 10 mg PO HS [facility] Famotidine (Pepcid -) 20 mg PO BID [facility] Last Admin: 03/01/19 10:01 Dose: 20 mg Heparin Sodium (Porcine) (Heparin -) 5,000 unit SQ BID [facility] Last Admin: 03/01/19 10:02 Dose: 5,000 unit Ceftriaxone Sodium 1 gm/ (Dextrose) 50 mls @ 100 mls/hr IVPB ONCE ONE Stop: 03/01/19 07:49 Olanzapine (Zyprexa -) 2.5 mg PO HS [facility] Thiamine HCl (Vitamin B1 -) 100 mg PO DAILY [facility] Last Admin: 03/01/19 10:00 Dose: 100 mg Tobramycin/Dexamethasone (Tobradex Ophthalmic Suspension -) 1 drop OU BID [facility] Last Admin: 03/01/19 10:04 Dose: 1 drop - Objective Vital Signs: Vital Signs Temperature 98.2 F 03/01/19 09:00 Pulse Rate 97 H 03/01/19 09:00 Respiratory Rate 18 03/01/19 09:00 Blood Pressure 102/57 L 03/01/19 09:00 O2 Sat by Pulse Oximetry (%) 97 03/01/19 09:00 Eyes: Yes: WNL, Conjunctiva Clear, EOM Intact HENT: Yes: WNL, Atraumatic, Normocephalic Neck: Yes: WNL, Supple, Trachea Midline Cardiovascular: Yes: WNL, Regular Rate and Rhythm Respiratory: Yes: WNL, Regular, CTA Bilaterally Gastrointestinal: Yes: WNL, Normal Bowel Sounds Genitourinary: Yes: WNL Musculoskeletal: Yes: WNL Extremities: Yes: WNL Edema: No Integumentary: Yes: WNL Neurological: Yes: WNL, Alert, Oriented ...Motor Strength: WNL Psychiatric: Yes: WNL Labs: CBC, BMP 03/01/19 05:45 02/27/19 05:24 INR, PTT INR 1.18 (0.83-1.09) H 02/25/19 11:20 Problem List - Problems (1) Intertrochanteric fracture Code(s): S72.143A - DISPLACED INTERTROCHANTERIC FRACTURE OF UNSP FEMUR, INIT Qualifiers: Encounter type: initial encounter Fracture type: closed Fracture alignment: nondisplaced Laterality: right Qualified Code(s): S72.144A - Nondisplaced intertrochanteric fracture of right femur, initial encounter for closed fracture (2) Closed head injury Code(s): S09.90XA - UNSPECIFIED INJURY OF HEAD, INITIAL ENCOUNTER (3) Fall Code(s): W19.XXXA - UNSPECIFIED FALL, INITIAL ENCOUNTER (4) Knee pain, acute Code(s): M25.569 - PAIN IN UNSPECIFIED KNEE Assessment/Plan 1. Post ORIF right hip fracture 2. Anemia 3. Acute on chronic LV diastolic failure with vascular congestion, improved 4. COPD PLAN: 1. Current post op management 2. Currently not on any cardiac therapy 3. Monitor CBC. Transfuse as needed 4. PT
--- NOTE | 2019-03-01 12:46 | PN ---
Progress Note, Physician History of Present Illness: PULMONARY ALERT,OOB-CHAIR,NO DISTRESS,-SOB - Current Medication List Current Medications: Active Medications Acetaminophen (Tylenol -) 650 mg PO Q4H PRN PRN Reason: PAIN LEVEL 4 - 6 Last Admin: 03/01/19 10:02 Dose: 650 mg Benztropine Mesylate (Cogentin -) 0.5 mg PO BID [facility] Last Admin: 03/01/19 10:02 Dose: 0.5 mg Citalopram Hydrobromide (Celexa -) 20 mg PO DAILY [facility] Last Admin: 03/01/19 10:02 Dose: 20 mg Divalproex Sodium (Depakote -) 250 mg PO BID [facility] Last Admin: 03/01/19 10:00 Dose: 250 mg Donepezil HCl (Aricept -) 10 mg PO HS [facility] Famotidine (Pepcid -) 20 mg PO BID [facility] Last Admin: 03/01/19 10:01 Dose: 20 mg Heparin Sodium (Porcine) (Heparin -) 5,000 unit SQ BID [facility] Last Admin: 03/01/19 10:02 Dose: 5,000 unit Ceftriaxone Sodium 1 gm/ (Dextrose) 50 mls @ 100 mls/hr IVPB ONCE ONE Stop: 03/01/19 07:49 Olanzapine (Zyprexa -) 2.5 mg PO HS [facility] Thiamine HCl (Vitamin B1 -) 100 mg PO DAILY [facility] Last Admin: 03/01/19 10:00 Dose: 100 mg Tobramycin/Dexamethasone (Tobradex Ophthalmic Suspension -) 1 drop OU BID [facility] Last Admin: 03/01/19 10:04 Dose: 1 drop - Objective Vital Signs: Vital Signs Temperature 98.2 F 03/01/19 09:00 Pulse Rate 97 H 03/01/19 09:00 Respiratory Rate 18 03/01/19 09:00 Blood Pressure 102/57 L 03/01/19 09:00 O2 Sat by Pulse Oximetry (%) 97 03/01/19 09:00 Constitutional: Yes: Calm, Thin Eyes: Yes: WNL HENT: Yes: WNL Neck: Yes: WNL Cardiovascular: Yes: Regular Rate and Rhythm, S1, S2 Respiratory: Yes: Diminished Gastrointestinal: Yes: Normal Bowel Sounds, Soft Extremities: Yes: WNL Edema: No Labs: CBC, BMP 03/01/19 05:45 Problem List - Problems (1) Pleural effusion Code(s): J90 - PLEURAL EFFUSION, NOT ELSEWHERE CLASSIFIED (2) Anemia Code(s): D64.9 - ANEMIA, UNSPECIFIED (3) Hip fracture Code(s): S72.009A - FRACTURE OF UNSP PART OF NECK OF UNSP FEMUR, INIT (4) Intertrochanteric fracture Code(s): S72.143A - DISPLACED INTERTROCHANTERIC FRACTURE OF UNSP FEMUR, INIT Qualifiers: Encounter type: initial encounter Fracture type: closed Fracture alignment: nondisplaced Laterality: right Qualified Code(s): S72.144A - Nondisplaced intertrochanteric fracture of right femur, initial encounter for closed fracture (5) Lactic acid increased Code(s): E87.2 - ACIDOSIS (6) Thrombocytopenia Code(s): D69.6 - THROMBOCYTOPENIA, UNSPECIFIED (7) Fall Code(s): W19.XXXA - UNSPECIFIED FALL, INITIAL ENCOUNTER Assessment/Plan IMP R HIP FX(INTERTROCHANTERIC FX) S/P MECHANICAL FALL,S/P NAIL FIXATION FEVER/HYPOTENSION RESOLVED ? BILATERAL PLEURAL EFFUSIONS /ATELECTASIS/?INFILTRATE ? COPD SCHIZOPHRENIA GERD ANEMIA/THROMBOCYTOPENIA ELEVATED LACTATE LEVEL IMPROVED PLAN ABX PER ID O2 NEEDED INCENTIVE SPIROMETER DVT PROPHYLAXIS MONITOR H+H,PLT CT NORMAL TRANSFUSION THRESHOLD DR BISWAS
--- NOTE | 2019-03-01 14:18 | PN ---
Progress Note (short form) - Note Progress Note: ORTHOPEDIC SURGERY PROGRESS NOTE Department of Orthopedic Surgery SUBJECTIVE No acute events overnight. No complaints currently. Resting comfortably in bed. Denies chest pain, shortness of breath, or calf pain. No nausea or vomiting. Pain controlled and improving. Patient ambulating well with PT. PHYSICAL EXAMINATION General: Currently alert and mildly confused. cooperative and no distress. Right Lower Extremity: Dressing c/d/i; no lesions, rashes or ulcers noted. No signs of hematoma formation subcutaneously, nor drainage nor infection; No atrophy noted. No masses or effusions noted. No tenderness to palpation. Full passive and active ROM of the knee and ankle, free from pain. EHL/TA/GS motor intact; SILT distally; 2+ DP pulses; Cap refill brisk. DVT Exam: No evidence of DVT seen on physical exam; No cords or calf tenderness ; No significant calf/ankle edema. Intake & Output 02/28/19 02/28/19 03/01/19 00:59 23:59 23:59 Intake Total 610 Balance 610 Intake: IV LFA #22 02/26 Oral 610 Other: Voiding Method Diaper # Unmeasured Voids Void Bowel Movement No # Bowel Movements Body Mass Index (BMI) 17.5 Active Medications Generic Name Dose Route Start Last Admin Trade Name Freq PRN Reason Stop Dose Admin Acetaminophen 650 mg 03/01/19 07:20 03/01/19 10:02 Tylenol - PO 650 mg Q4H PRN Administration PAIN LEVEL 4 - 6 Benztropine Mesylate 0.5 mg 03/01/19 10:00 03/01/19 10:02 Cogentin - PO 0.5 mg BID [facility] Administration Citalopram Hydrobromide 20 mg 03/01/19 10:00 03/01/19 10:02 Celexa - PO 20 mg DAILY [facility] Administration Divalproex Sodium 250 mg 03/01/19 10:00 03/01/19 10:00 Depakote - PO 250 mg BID [facility] Administration Donepezil HCl 10 mg 03/01/19 22:00 Aricept - PO HS [facility] Famotidine 20 mg 03/01/19 10:00 03/01/19 10:01 Pepcid - PO 20 mg BID [facility] Administration Heparin Sodium (Porcine) 5,000 unit 02/27/19 13:45 03/01/19 10:02 Heparin - SQ 5,000 unit BID [facility] Administration Ceftriaxone Sodium 1 gm/ 50 mls @ 100 mls/hr 03/01/19 07:20 Dextrose IVPB 03/01/19 07:49 ONCE ONE Olanzapine 2.5 mg 03/01/19 22:00 Zyprexa - PO HS [facility] Thiamine HCl 100 mg 03/01/19 10:00 03/01/19 10:00 Vitamin B1 - PO 100 mg DAILY [facility] Administration Tobramycin/Dexamethasone 1 drop 03/01/19 10:00 03/01/19 10:04 Tobradex Ophthalmic Suspension - OU 1 drop BID [facility] Administration Vital Signs (last) Temp Pulse Resp BP Pulse Ox 98.2 F 97 H 15 126/53 L 97 03/01/19 14:13 03/01/19 14:13 03/01/19 14:13 03/01/19 14:13 03/01/19 09:00 Laboratory (coagulation) PT with INR 14.00 SEC (9.7-13.0) H 02/25/19 11:20 Laboratory 03/01/19 05:45 02/27/19 05:24 ASSESSMENT AND PLAN Ms. Milligan is an 88 year old female s/p right hip IM nailing POD 7. - Pain control: Transition to oral pain medications, minimize narcotic use - DVT prophylaxis - Continue Heparin x 4 weeks total post-operatively; Discussed importance of SCD's to be on and working while in bed with the nursing staff as well as the patient. - Ice to Right Hip - Elevate HOB, encourage oral intake - Appreciate medical / cardio team input - D/C Piotr POD 14 - Follow up in my office POD 14 - Appreciate medical management (Nutrition optimization, decubitus precautions heel/sacrum) - Physical Therapy Daily: WBAT RLE - Dispo planning All questions were answered. Thank you for involving our team in the care of this patient. Please call us at [phone] with questions
--- NOTE | 2019-03-01 15:18 | PN ---
Progress Note (short form) - Note Progress Note: HPI: No acute events overnight. No symptoms reported at current time of exam. Pleasantly confused Vital Signs Temperature 98.2 F 03/01/19 14:13 Pulse Rate 97 H 03/01/19 14:13 Respiratory Rate 15 03/01/19 14:13 Blood Pressure 126/53 L 03/01/19 14:13 O2 Sat by Pulse Oximetry (%) 97 03/01/19 09:00 PE: GEN: Frail, hearing loss, oriented x2, no acute distress HEENT: Nc/AT, INDIRA, MMM LUNG: Diminished breath sounds at bases today. No wheezes, good inspiratory effort. 2LNC 97% CARD: RRR no murmurs appreciated ABD: Soft, Nt/Nd, normoactive BS, no guarding EXT: No bleeding or drainage from site, no peripheral edema CBC, BMP 03/01/19 05:45 02/27/19 05:24 Microbiology 02/23/19 10:45 Blood - Peripheral Venous Blood Culture - Preliminary NO GROWTH OBTAINED AFTER 72 HOURS, INCUBATION TO CONTINUE FOR 2 DAYS. 02/23/19 10:50 Blood - Peripheral Venous Blood Culture - Preliminary NO GROWTH OBTAINED AFTER 72 HOURS, INCUBATION TO CONTINUE FOR 2 DAYS. 02/23/19 19:00 Urine - Urine - Catheterized Urine Culture - Final NO GROWTH OBTAINED 02/21/19 14:19 Urine - Urine Kunz Urine Culture - Final NO GROWTH OBTAINED Active Medications Acetaminophen (Tylenol -) 650 mg PO Q4H PRN PRN Reason: PAIN LEVEL 4 - 6 Last Admin: 03/01/19 10:02 Dose: 650 mg Benztropine Mesylate (Cogentin -) 0.5 mg PO BID [facility] Last Admin: 03/01/19 10:02 Dose: 0.5 mg Citalopram Hydrobromide (Celexa -) 20 mg PO DAILY [facility] Last Admin: 03/01/19 10:02 Dose: 20 mg Divalproex Sodium (Depakote -) 250 mg PO BID [facility] Last Admin: 03/01/19 10:00 Dose: 250 mg Donepezil HCl (Aricept -) 10 mg PO [facility] Famotidine (Pepcid -) 20 mg PO BID [facility] Last Admin: 03/01/19 10:01 Dose: 20 mg Heparin Sodium (Porcine) (Heparin -) 5,000 unit SQ BID [facility] Last Admin: 11/04/19 10:02 Dose: 5,000 unit Ceftriaxone Sodium 1 gm/ (Dextrose) 50 mls @ 100 mls/hr IVPB ONCE ONE Stop: 03/01/19 07:49 Olanzapine (Zyprexa -) 2.5 mg PO [facility] Thiamine HCl (Vitamin B1 -) 100 mg PO DAILY [facility] Last Admin: 03/01/19 10:00 Dose: 100 mg Tobramycin/Dexamethasone (Tobradex Ophthalmic Suspension -) 1 drop OU BID [facility] Last Admin: 03/01/19 10:04 Dose: 1 drop Assessment and Plan: R intertrochanteric hip fracture Acute Normocytic anemia Mechanical fall COPD not in exacerbation H/o HTN Lactic acidosis (resolved) Schizophrenia Severe protein calorie malnutrition --Anemia workup negative with three negative stool occults --Monitor H/H --Fluctuation without any bleeding or hemolysis; question over- phlebotimizing vs. dilutional/concentration fluctuation --Imaging reviewed --Encourage use of incentive spirometry --Monitor mentation status --LA likely more Type B due to acute decrease after thiamine supplementation --Continue home medications: Zyprexa 2.5mg HS Aricept 10mg qdaily Depakote 250mg BID Cogentin 0.5mg BID FEN: Fluids: PO encouraged Electrolyte abnormalities: Nutrition: Regular PPX: DVT - Heparin BID GI - Pepcid 20mg BID Dispo: d/c planning to rehab; follow H/H Case discussed with Dr. Natasha Anthony, DO - IM PGY-3
[2019-03-01] MEDS ORDERED: PT OWN MED DRAWER 7, Y5N ONE ×2 (18:49→21:24)
[2019-03-01] MEDS ORDERED: DONEPEZIL HCL 10 MG TABLET (FP) PO SCH (22:00)
[2019-03-01] MEDS ORDERED: OLANZapine 2.5 MG TABLET PO SCH (22:00)
[2019-03-02 06:32] LABS: HEMATOCRIT 26.2 % (32.4-45.2); HEMOGLOBIN 8.8 GM/dL (10.7-15.3); MCH 32.2 pg (25.7-33.7); MCHC 33.7 g/dl (32.0-36.0); MEAN CELL VOLUME 95.6 fl (80-96); MEAN PLT VOLUME 8.5 fl (7.5-11.1); PLATELET COUNT 217 K/MM3 (134-434); RBC 2.74 M/mm3 (3.60-5.2); RDW 14.8 % (11.6-15.6); WHITE BLOOD COUNT 4.8 K/mm3 (4.0-10.0)
[2019-03-02 07:02] LABS: BLOOD UREA NITROGEN 22.2 mg/dL (7-18); CALCIUM 8.2 mg/dL (8.5-10.1); CREATININE 0.5 mg/dL (0.55-1.3); POTASSIUM 4.6 mmol/L (3.5-5.1)
[2019-03-02 08:13] VITALS: BP 121/57; PULSE 91; TEMP 98.8
[2019-03-02] MEDS ORDERED: PT OWN MED DRAWER 7, Y5N ONE (09:42)
[2019-03-02] MEDS: FAMOTIDINE 20 MG TABLET PO SCH (09:43)
[2019-03-02] MEDS: THIAMINE HCL 100 MG TABLET (FP) PO SCH (09:44)
[2019-03-02] MEDS: DIVALPROEX SODIUM 250 MG TABLET E.C. PO SCH (09:44)
[2019-03-02] MEDS: CITALOPRAM HYDROBROMIDE 20 MG TABLET (FP) PO SCH (09:44)
[2019-03-02] MEDS: BENZTROPINE MESYLATE 0.5 MG TABLET (FP) PO SCH (09:45)
[2019-03-02] MEDS: HEPARIN NA (PORCINE) 5,000 UNITS/ML 1ML VIAL SQ SCH (09:46)
[2019-03-02] MEDS: TOBRA 0.3%/DEXAMETH 0.1% OPHTHALMIC SUSP 2.5 ML BTL OU SCH (09:47)
--- NOTE | 2019-03-02 09:51 | DS ---
Physical Exam: SUBJECTIVE: No acute events overnight. No telemetry monitoring alarms of significance. Pleasantly confused and denies any resting pain, SOB, CP, palpitations, dizziness/lightheadedness. OBJECTIVE: Vital Signs Period Temp Pulse Resp BP Sys/Hansen Pulse Ox Last 24 Hr 98.2 F-98.8 F 90-104 15-18 98-126/53-75 93 PHYSICAL EXAM PE: GEN: Frail, hearing loss, oriented x2, no acute distress HEENT: Nc/AT, INDIRA, MMM LUNG: Diminished breath sounds at bases today. No wheezes, good inspiratory effort. 2LNC 97% CARD: RRR no murmurs appreciated ABD: Soft, Nt/Nd, normoactive BS, no guarding EXT: No bleeding or drainage from site, no peripheral edema LABS Laboratory Results - last 24 hr 03/02/19 03/02/19 05:54 05:54 WBC 4.8 RBC 2.74 L Hgb 8.8 L Hct 26.2 L MCV 95.6 MCH 32.2 MCHC 33.7 RDW 14.8 Plt Count 217 D MPV 8.5 Sodium 137 Potassium 4.6 Chloride 102 Carbon Dioxide 33 H Anion Gap 3 L BUN 22.2 H Creatinine 0.5 L Est GFR (CKD-EPI)AfAm 100.86 Est GFR (CKD-EPI)NonAf 87.02 Random Glucose 85 Calcium 8.2 L Microbiology 02/23/19 10:45 Blood - Peripheral Venous Blood Culture - Final NO GROWTH AFTER 5 DAYS INCUBATION 02/23/19 10:50 Blood - Peripheral Venous Blood Culture - Final NO GROWTH AFTER 5 DAYS INCUBATION 02/23/19 19:00 Urine - Urine - Catheterized Urine Culture - Final NO GROWTH OBTAINED 02/21/19 14:19 Urine - Urine Kunz Urine Culture - Final NO GROWTH OBTAINED Imaging: Echocardiogram: Interpretation Summary The left ventricle is normal in size. There is severe concentric left ventricular hypertrophy. Left ventricular systolic function is normal. No regional wall motion abnormalities noted. Ejection Fraction = 65-70%. The right ventricular systolic function is normal. The left atrium is severely dilated. There is mild to moderate mitral valve thickening. There is moderate mitral annular calcification. Suggestion of functional mitral valve stenosis secondary to MAC There is moderate mitral regurgitation. There is mild tricuspid regurgitation. Pulmonary artery systolic pressure is at least 30 mmHg assuming RA pressure of 3 mmHg There is moderate aortic sclerosis. There is systolic anterior motion of the chordal apparatus without evidence of significant LVOT obstruction There is no pericardial effusion Hip/Pelvis XR: Impression: Acute right femoral intertrochanteric fracture with no sign of femoral head dislocation. Femur XR: 2 views of the right femur include the distal two thirds of the shaft which show arthritic changes involving the knee. The shaft appears intact. The pelvis and right hip images show a proximal right femoral fracture which is comminuted involving the intertrochanteric area. Correlation recommended. Chest CT: IMPRESSION: No CT evidence of pulmonary embolism. Small to moderate bilateral pleural effusions with resultant bibasilar compressive atelectasis. A superimposed infiltrate would be difficult to exclude on the basis of CT only. Correlate clinically. Very extensive concentric subcutaneous edema/anasarca. Possible mild cardiomegaly. Pelvis CT: Impression: Status post recent right hip ORIF. A small amount of soft tissue air accumulation is seen which is presumably postsurgical in nature. No discrete hematoma is visualized. Swelling of the right upper thigh anterior and posterior musculature is noted diffusely. Concentric subcutaneous edema/anasarca is noted along the thighs bilaterally as well as the pelvis. HOSPITAL COURSE: Date of Admission:02/21/19 Date of Discharge: 03/02/19 Pt was admitted on 02/21/19 due to hip fracture 2/2 to mechanical fall. Pt was medically optimized including cardiac and psych consultation. AFter optimization pt was taken to the OR with Dr. Barba for Gamma nail procedure. Pt' s intraoperative course was unremarkable. Unfortunately pt's post-operative course was noted with normocytic anemia without note of any significant bleeding. In addition pt was noted to be volume overloaded as well which may have contributed to anemia. Pt received 1UPRBC at this time (followed by Lasix 20mg IVP once) and had SQ DVT ppx held. Pt had anemia workup as above which did not reveal any iron deficiency or hemolysis. Pt received Pelvis CT to r/o any hematoma formation and had repeatedly negative stool occult blood on 3 different occassions. Reticulocyte count was appropriate and her H/H trended up. Throughout she remained asymptomatic and at her baseline mentation. Pt was assessed with physical therapy and it was recommended pt was to have continued physical rehabilitation at a facility. Pt is being discharged in stable condition with H/H stable at this time and no signs of active bleeding. Pt is to continue Heparin sQ for DVT ppx and to have CBC checked within 2-3 days while on this regiment. Pt's dressing is to be changed per Dr. Barba's instructions as below Minutes to complete discharge: 35 Discharge Summary Problems reviewed: Yes Reason For Visit: INTERTROCHANTERIC FRACTURE Current Active Problems Acute on chronic diastolic (congestive) heart failure (Acute) Anemia (Acute) COPD (chronic obstructive pulmonary disease) (Acute) Hip fracture (Acute) Intertrochanteric fracture (Acute) Lactic acid increased (Acute) Pleural effusion (Acute) Thrombocytopenia (Acute) UTI (urinary tract infection) (Acute) Condition: Stable - Instructions Diet, Activity, Other Instructions: You were hospitalized due to your hip fracture. You received surgery and we noticed afterwards your blood counts were low. You received 1 unit of blood, however your blood counts remained good afterwards and there was no bleeding. MEDICATINOS: Aricept 10mg daily Celexa 20mg daily Cogentin 0.5mg TWICE daily Depakote 250mg TWICE daily Thiamine 100mg daily Tobramycin drops OU TWICE daily Zyprexa 2.5mg NIGHTLY Diet: Regular diet Follow-up: Please follow-up with Dr. Barba on 03/09/19 for a post-operative follow-up Please follow-up with your primary care provider in 3-5 days. If you do not have one Dr. Carrington has been provided Dressing: Please keep the dressing dry do not submerge the dressing in a bath Please change the dressing every 3 days. The dressing has been changed at discharge from the hospital Referrals: Mau Barba DO [Staff Physician] - 03/09/19 Bree Carrington MD [Staff Physician] - 1 Week Disposition: RESIDENTIAL FACILITY - Home Medications Comprehensive Discharge Medication List: Ambulatory Orders Benztropine Mesylate [Cogentin -] 0.5 mg PO BID 11/26/16 Citalopram Hydrobromide [Citalopram HBr] 20 mg PO DAILY 11/26/16 Clopidogrel Bisulfate [Clopidogrel] 75 mg PO DAILY 11/26/16 Divalproex [Depakote -] 250 mg PO BID 11/26/16 Donepezil HCl [Aricept -] 10 mg PO DAILY 11/26/16 Famotidine [Pepcid -] 20 mg PO BID 11/26/16 Olanzapine [Zyprexa -] 2.5 mg PO HS 11/26/16 Thiamine HCl [Vitamin B1 -] 100 mg PO DAILY tablet 03/01/19 Tobramycin Sulf/Dexamethasone [Tobradex Ophthalmic Suspension -] 1 drop OU BID drops 03/01/19 Heparin - 5,000 unit SQ BID 20 Days #40 vial 03/02/19 This patient is new to me today: No Emergency Visit: Yes ED Registration Date: 02/21/19 Care time: The patient presented to the Emergency Department on the above date and was hospitalized for further evaluation of their emergent condition. Critical Care patient: No - Discharge Referral Referred to [facility] Med P.C.: No ATTENDING PHYSICIAN STATEMENT I saw and evaluated the patient. I reviewed the resident's note and discussed the case with the resident. I agree with the resident's findings and plan as documented. SUBJECTIVE: OBJECTIVE: ASSESSMENT AND PLAN:
--- NOTE | 2019-03-02 11:14 | PN ---
Teaching Attending Note Name of Resident: Desmond Anthony ATTENDING PHYSICIAN STATEMENT I saw and evaluated the patient. I reviewed the resident's note and discussed the case with the resident. I agree with the resident's findings and plan as documented. SUBJECTIVE: No complaints. OBJECTIVE: Vital Signs Period Temp Pulse Resp BP Sys/Hansen Pulse Ox Last 24 Hr 98.2 F-98.8 F 90-104 15-18 98-126/53-75 93 HEART: S1S2, RRR LUNGS: Clear ABDOMEN: Soft, non-tender, non-distended, normal BS EXTREMITIES: No edema Laboratory Results - last 24 hr 03/02/19 03/02/19 05:54 05:54 WBC 4.8 RBC 2.74 L Hgb 8.8 L Hct 26.2 L MCV 95.6 MCH 32.2 MCHC 33.7 RDW 14.8 Plt Count 217 D MPV 8.5 Sodium 137 Potassium 4.6 Chloride 102 Carbon Dioxide 33 H Anion Gap 3 L BUN 22.2 H Creatinine 0.5 L Est GFR (CKD-EPI)AfAm 100.86 Est GFR (CKD-EPI)NonAf 87.02 Random Glucose 85 Calcium 8.2 L Current Medications Generic Name Dose Route Start Last Admin Trade Name Freq PRN Reason Stop Dose Admin Acetaminophen 650 mg 03/01/19 07:20 03/01/19 10:02 Tylenol - PO 650 mg Q4H PRN Administration PAIN LEVEL 4 - 6 Benztropine Mesylate 0.5 mg 03/01/19 10:00 03/02/19 09:45 Cogentin - PO 0.5 mg BID [facility] Administration Citalopram Hydrobromide 20 mg 03/01/19 10:00 03/02/19 09:44 Celexa - PO 20 mg DAILY [facility] Administration Divalproex Sodium 250 mg 03/01/19 10:00 03/02/19 09:44 Depakote - PO 250 mg BID [facility] Administration Donepezil HCl 10 mg 03/01/19 22:00 03/01/19 21:48 Aricept - PO 10 mg HS [facility] Administration Famotidine 20 mg 03/01/19 10:00 03/02/19 09:43 Pepcid - PO 20 mg BID [facility] Administration Heparin Sodium (Porcine) 5,000 unit 02/27/19 13:45 03/02/19 09:46 Heparin - SQ 5,000 unit BID [facility] Administration Olanzapine 2.5 mg 03/01/19 22:00 03/01/19 21:49 Zyprexa - PO 2.5 mg HS [facility] Administration Thiamine HCl 100 mg 03/01/19 10:00 03/02/19 09:44 Vitamin B1 - PO 100 mg DAILY [facility] Administration Tobramycin/Dexamethasone 1 drop 03/01/19 10:00 03/02/19 09:47 Tobradex Ophthalmic Suspension - OU 1 drop BID [facility] Administration ASSESSMENT AND PLAN: This is an 88 year old woman with a history of HTN, COPD, GERD, schizophrenia who presented to the ED from [facility] with right hip pain. 1. Intertrochanteric right hip fracture - s/p IM nailing on 02/22 - Continue PT - Ok for discharge to [facility] for short term rehab today 2. Acute anemia - Iron, TIBC, iron saturation all low with normal ferritin - Transfused 2 units PRBCs during this admission - No evidence of bleeding - Hemoglobin stable 3. s/p fall 4. COPD - Stable 5. HTN - BP is ok on no medication 6. GERD - Continue Pepcid 7. Schizophrenia - Continue Depakote, Zyprexa, Cogentin 8. Lactic acidosis, resolved 9. Severe protein calorie malnutrition
--- NOTE | 2019-03-02 11:18 | PN ---
Progress Note, Physician History of Present Illness: PULMONARY ALERT,OOB-CHAIR,-SOB,-COUGH - Current Medication List Current Medications: Active Medications Acetaminophen (Tylenol -) 650 mg PO Q4H PRN PRN Reason: PAIN LEVEL 4 - 6 Last Admin: 03/01/19 10:02 Dose: 650 mg Benztropine Mesylate (Cogentin -) 0.5 mg PO BID [facility] Last Admin: 03/02/19 09:45 Dose: 0.5 mg Citalopram Hydrobromide (Celexa -) 20 mg PO DAILY [facility] Last Admin: 03/02/19 09:44 Dose: 20 mg Divalproex Sodium (Depakote -) 250 mg PO BID [facility] Last Admin: 03/02/19 09:44 Dose: 250 mg Donepezil HCl (Aricept -) 10 mg PO HS [facility] Last Admin: 03/01/19 21:48 Dose: 10 mg Famotidine (Pepcid -) 20 mg PO BID [facility] Last Admin: 03/02/19 09:43 Dose: 20 mg Heparin Sodium (Porcine) (Heparin -) 5,000 unit SQ BID [facility] Last Admin: 03/02/19 09:46 Dose: 5,000 unit Olanzapine (Zyprexa -) 2.5 mg PO HS [facility] Last Admin: 03/01/19 21:49 Dose: 2.5 mg Thiamine HCl (Vitamin B1 -) 100 mg PO DAILY [facility] Last Admin: 03/02/19 09:44 Dose: 100 mg Tobramycin/Dexamethasone (Tobradex Ophthalmic Suspension -) 1 drop OU BID [facility] Last Admin: 03/02/19 09:47 Dose: 1 drop - Objective Vital Signs: Vital Signs Temperature 98.8 F 03/02/19 08:12 Pulse Rate 91 H 03/02/19 08:12 Respiratory Rate 18 03/02/19 08:12 Blood Pressure 121/57 L 03/02/19 08:12 O2 Sat by Pulse Oximetry (%) 93 L 03/01/19 20:25 Constitutional: Yes: Calm, Thin Eyes: Yes: WNL HENT: Yes: WNL Neck: Yes: WNL Cardiovascular: Yes: Regular Rate and Rhythm, S1, S2 Respiratory: Yes: Diminished Gastrointestinal: Yes: Normal Bowel Sounds, Soft Extremities: Yes: WNL Edema: No Labs: CBC, BMP 03/02/19 05:54 03/02/19 05:54 INR, PTT INR 1.18 (0.83-1.09) H 02/25/19 11:20 Problem List - Problems (1) Pleural effusion Code(s): J90 - PLEURAL EFFUSION, NOT ELSEWHERE CLASSIFIED (2) Anemia Code(s): D64.9 - ANEMIA, UNSPECIFIED (3) Hip fracture Code(s): S72.009A - FRACTURE OF UNSP PART OF NECK OF UNSP FEMUR, INIT (4) Intertrochanteric fracture Code(s): S72.143A - DISPLACED INTERTROCHANTERIC FRACTURE OF UNSP FEMUR, INIT Qualifiers: Encounter type: initial encounter Fracture type: closed Fracture alignment: nondisplaced Laterality: right Qualified Code(s): S72.144A - Nondisplaced intertrochanteric fracture of right femur, initial encounter for closed fracture (5) Lactic acid increased Code(s): E87.2 - ACIDOSIS (6) Thrombocytopenia Code(s): D69.6 - THROMBOCYTOPENIA, UNSPECIFIED (7) Fall Code(s): W19.XXXA - UNSPECIFIED FALL, INITIAL ENCOUNTER Assessment/Plan IMP R HIP FX(INTERTROCHANTERIC FX) S/P MECHANICAL FALL,S/P NAIL FIXATION FEVER/HYPOTENSION RESOLVED ? BILATERAL PLEURAL EFFUSIONS /ATELECTASIS/?INFILTRATE ? COPD SCHIZOPHRENIA GERD ANEMIA/THROMBOCYTOPENIA ELEVATED LACTATE LEVEL IMPROVED PLAN O2 NEEDED INCENTIVE SPIROMETER DVT PROPHYLAXIS PT PLACEMENT DR BISWAS
== END 2019-03-02 12:16 | DRG 480 ==
LOC: JER 10:23 → JERBED 13:02 → J6S 15:04 → J4S 02-24 10:57
PROVIDERS: ADMIT Internal Medicine; ATTEND Internal Medicine
PROC: 30233N1 Transfusion of Nonautologous Red Blood Cells into Peripheral Vein, Percutaneous Approach (ICD-10-PCS; 2019-02-22)
PROC: 0QS604Z Reposition Right Upper Femur with Internal Fixation Device, Open Approach (ICD-10-PCS; principal; 2019-02-22 10:00)
DX: S72.144A Nondisplaced intertrochanteric fracture of right femur, initial encounter for closed fracture (principal); E43 Unspecified severe protein-calorie malnutrition; I50.33 Acute on chronic diastolic (congestive) heart failure; F20.0 Paranoid schizophrenia; E87.2 Acidosis; N39.0 Urinary tract infection, site not specified; J98.11 Atelectasis; J90 Pleural effusion, not elsewhere classified; Z68.1 Body mass index [BMI] 19.9 or less, adult; I11.0 Hypertensive heart disease with heart failure; I95.81 Postprocedural hypotension; J44.9 Chronic obstructive pulmonary disease, unspecified; K21.9 Gastro-esophageal reflux disease without esophagitis; F03.90 Unspecified dementia, unspecified severity, without behavioral disturbance, psychotic disturbance, mood disturbance, and anxiety; D69.6 Thrombocytopenia, unspecified; R50.82 Postprocedural fever; D50.0 Iron deficiency anemia secondary to blood loss (chronic); W18.30XA Fall on same level, unspecified, initial encounter; Y92.89 Other specified places as the place of occurrence of the external cause
CPT/HCPCS: 36415; 36430; 36511; 36600; 71045-TC-FY; 71275-TC; 72192-TC; 73523-TC-FY; 73552-TC-RT-FY; 76000-TC-FY; 80048; 80053; 80061; 81003; 82272; 82607; 82728; 82747; 82803; 83540; 83550; 83605; 83615; 83721; 83735; 83880; 83930; 84100; 84443; 85014; 85025; 85027; 85044; 85379; 85610; 85651; 85730; 86022; 86140; 86850; 86900; 86901; 86922; 87040; 87086; 93005; 93010; 93306-TC; 94760; 97116-GP; 97161-GP; 99284-25; J0131; J1644; J7030; P9038; P9058

== ENCOUNTER 2020-05-05 08:17 | Inpatient (IN) | payer OTHER ==
[2020-05-05] MEDS ORDERED: SODIUM CHLORIDE 0.9% 500 ML INFUS.BAG IV ONE (08:45)
[2020-05-05] MEDS ORDERED: ALBUTEROL SO4 HFA INHALER IH ONE ×2 (08:46→10:06)
[2020-05-05] MEDS ORDERED: predniSONE 20 MG TABLET (UD) PO ONE (08:51)
[2020-05-05] MEDS ORDERED: dilTIAZem HCL 50 MG/10 ML - 10 ML VIAL IVPUSH ONE ×2 (09:10→09:19)
[2020-05-05] MEDS ORDERED: dilTIAZem HCL 50 MG/10 ML - 10 ML VIAL ONE (10:06)
[2020-05-05] MEDS ORDERED: predniSONE 20 MG TABLET (UD) ONE (10:06)
[2020-05-05] MEDS ORDERED: dilTIAZem HCL 30 MG TABLET ONE ×2 (10:07→23:42)
[2020-05-05 10:34] LABS: BASO % 0.4 % (0-2.0); EOS % 0.5 % (0-4.5); HEMATOCRIT 44.2 % (32.4-45.2); HEMOGLOBIN 14.3 GM/dL (10.7-15.3); LYMPH % 19.2 % (8-40); MCH 29.9 pg (25.7-33.7); MCHC 32.3 g/dl (32.0-36.0); MEAN CELL VOLUME 92.6 fl (80-96); MEAN PLT VOLUME 9.5 fl (7.5-11.1); MONO % 11.2 % (3.8-10.2); NEUT % 68.7 % (42.8-82.8); PLATELET COUNT 195 K/MM3 (134-434); RBC 4.77 M/mm3 (3.60-5.2); RDW 13.4 % (11.6-15.6); WHITE BLOOD COUNT 5.8 K/mm3 (4.0-10.0)
[2020-05-05 10:36] LABS: VENOUS BASE EXCESS 3.3 mmol/L (-2-2); VENOUS O2 SATURATION 37.8 % (70-80); VENOUS PCO2 67.4 mmHg (38-52); VENOUS PH 7.297 (7.310-7.410)
[2020-05-05 10:54] LABS: INR 1.24 (0.83-1.09); PROTHROMBIN TIME (PATIENT) 15.1 SEC (9.7-13.0)
[2020-05-05 10:57] LABS: ACTIVATED PTT 34.3 SECONDS (25.2-36.5)
[2020-05-05 10:59] LABS: POTASSIUM 4.4 mmol/L (3.5-5.1)
[2020-05-05 11:02] LABS: ALBUMIN 3.8 g/dl (3.4-5.0); CALCIUM 9.3 mg/dL (8.5-10.1)
[2020-05-05 11:03] LABS: BLOOD UREA NITROGEN 20.2 mg/dL (7-18)
[2020-05-05 11:06] LABS: CREATININE 0.8 mg/dL (0.55-1.3)
[2020-05-05 11:08] LABS: BILIRUBIN,TOTAL 0.8 mg/dL (0.2-1); TOT PROT 7.6 g/dl (6.4-8.2)
[2020-05-05 11:10] LABS: LDH 230 U/L (84-246)
[2020-05-05] MEDS ORDERED: AZITHROMYCIN IVPB 500 MG in DEXTROSE 5%-WATER - 250 ML IVPB ONE (11:11)
[2020-05-05] MEDS ORDERED: DOXYCYCLINE INJECTION 100 MG in DEXTROSE 5%-WATER - 100 ML IVPB ONE (11:16)
[2020-05-05] MEDS ORDERED: CEFTRIAXONE 1 GM/50 ML BAG ONE (12:16)
[2020-05-05] MEDS ORDERED: DOXYCYCLINE HYCLATE 100 MG VIAL ONE (12:21)
[2020-05-05] MEDS ORDERED: APIXABAN 2.5 MG TABLET PO SCH (14:13)
[2020-05-05] MEDS ORDERED: APIXABAN 2.5 MG TABLET ONE (14:44)
[2020-05-05] MEDS ORDERED: PIPERACILLIN/TAZOB 3.375 GM 3.375 GM in DEXTROSE 5%-WATER - 50 ML IVPB SCH (15:30)
[2020-05-05] MEDS ORDERED: ENOXAPARIN NA (PORCINE) 40 MG/0.4 ML DISP.SYRIN SQ ONE (15:53)
[2020-05-05] MEDS ORDERED: ENOXAPARIN NA (PORCINE) 80 MG/0.8 ML DISP.SYRIN SQ ONE (15:53)
[2020-05-05] MEDS: dilTIAZem HCL 30 MG TABLET PO SCH ×2 (16:19→18:37)
[2020-05-05] MEDS: METOPROLOL TARTRATE 25 MG TABLET (FP) PO SCH (16:21)
[2020-05-05 16:34] LABS: MAGNESIUM 1.9 mg/dL (1.8-2.4)
[2020-05-05 16:38] LABS: CHOLESTEROL 231 mg/dL (50-200); TRIGLYCERIDES 96 mg/dL (0-150)
[2020-05-05 16:39] LABS: LDL CHOLESTEROL (ONLY SJRH) 137 mg/dL (5-100)
[2020-05-05 16:40] LABS: HDL CHOLESTEROL 75 mg/dL (40-60)
[2020-05-05 16:42] LABS: N-TERMINAL BNP 2919.9 pg/ml (5-450)
[2020-05-05] MEDS: PIPERACILLIN/TAZOB 3.375 GM 3.375 GM in DEXTROSE 5%-WATER - 50 ML IVPB SCH (18:37)
[2020-05-05] MEDS ORDERED: PIPERACILLIN/TAZOB 3.375 GM 3.375 GM/50 ML BAG IVPB ONE (18:38)
[2020-05-05] MEDS ORDERED: DOXYCYCLINE INJECTION 100 MG in DEXTROSE 5%-WATER - 100 ML IVPB SCH (22:00)
[2020-05-05] MEDS ORDERED: METOPROLOL TARTRATE 25 MG TABLET (FP) ONE (23:42)
[2020-05-06] MEDS ORDERED: DEXTROSE 5%-WATER - 50 ML IVPB ONE ×3 (00:31→13:23)
[2020-05-06] MEDS ORDERED: PIPERACILLIN/TAZOBACTAM 3.375 GM VIAL IVPB ONE ×3 (00:31→13:22)
[2020-05-06] MEDS: METOPROLOL TARTRATE 25 MG TABLET (FP) PO SCH ×3 (00:44→23:25)
[2020-05-06] MEDS: dilTIAZem HCL 30 MG TABLET PO SCH ×3 (00:44→14:45)
[2020-05-06] MEDS ORDERED: ENOXAPARIN NA (PORCINE) 80 MG/0.8 ML DISP.SYRIN SQ ONE (00:45)
[2020-05-06] MEDS: PIPERACILLIN/TAZOB 3.375 GM 3.375 GM in DEXTROSE 5%-WATER - 50 ML IVPB SCH ×2 (01:37→13:24)
[2020-05-06 01:53] VITALS: BMI 16.7
[2020-05-06 07:12] LABS: BASO % 0.2 % (0-2.0); EOS % 0.1 % (0-4.5); HEMATOCRIT 36.9 % (32.4-45.2); HEMOGLOBIN 12.2 GM/dL (10.7-15.3); LYMPH % 21.4 % (8-40); MCH 30.4 pg (25.7-33.7); MEAN CELL VOLUME 92.3 fl (80-96); MEAN PLT VOLUME 8.8 fl (7.5-11.1); MONO % 9.5 % (3.8-10.2); NEUT % 68.8 % (42.8-82.8); PLATELET COUNT 163 K/MM3 (134-434); RDW 13.1 % (11.6-15.6); WHITE BLOOD COUNT 7.1 K/mm3 (4.0-10.0)
[2020-05-06 07:19] LABS: INR 1.44 (0.83-1.09); PROTHROMBIN TIME (PATIENT) 17.5 SEC (9.7-13.0)
[2020-05-06 07:20] LABS: ACTIVATED PTT 50.6 SECONDS (25.2-36.5)
[2020-05-06 07:31] LABS: CALCIUM 8.5 mg/dL (8.5-10.1)
[2020-05-06 07:32] LABS: BLOOD UREA NITROGEN 23.8 mg/dL (7-18)
[2020-05-06 07:35] LABS: CREATININE 0.7 mg/dL (0.55-1.3); PHOSPHOROUS 3.4 mg/dL (2.5-4.9)
[2020-05-06 07:36] LABS: BILIRUBIN,TOTAL 0.6 mg/dL (0.2-1); TOT PROT 6.2 g/dl (6.4-8.2)
[2020-05-06] MEDS ORDERED: HEPARIN NA (PORCINE) 5,000 UNITS/ML 1ML VIAL SQ SCH (10:00)
[2020-05-06] MEDS ORDERED: CEFTRIAXONE 1 GM in DEXTROSE 5%-WATER - 50 ML IVPB SCH (10:00)
[2020-05-06] MEDS: DONEPEZIL HCL 10 MG TABLET (FP) PO SCH (11:51)
[2020-05-06] MEDS: ENOXAPARIN NA (PORCINE) 60 MG/0.6 ML DISP.SYRIN SQ SCH ×2 (11:51→23:24)
[2020-05-06] MEDS: CITALOPRAM HYDROBROMIDE 20 MG TABLET PO SCH (11:51)
[2020-05-06] MEDS: CLOPIDOGREL BISULFATE 75 MG TABLET (FP) PO SCH (11:51)
[2020-05-06] MEDS: BENZTROPINE MESYLATE 0.5 MG TABLET (FP) PO SCH ×2 (14:37→23:30)
[2020-05-06] MEDS ORDERED: PT OWN MED DRAWER 7, Y5N ONE (20:46)
[2020-05-06] MEDS: OLANZapine 2.5 MG TABLET PO SCH (23:24)
[2020-05-06] MEDS: ATORVASTATIN CA 40 MG TABLET (FP) PO SCH (23:25)
[2020-05-07] MEDS ORDERED: PT OWN MED DRAWER 7, Y5N ONE ×2 (09:28→21:26)
[2020-05-07] MEDS: METOPROLOL TARTRATE 25 MG TABLET (FP) PO SCH ×2 (09:33→21:46)
[2020-05-07] MEDS: BENZTROPINE MESYLATE 0.5 MG TABLET (FP) PO SCH ×2 (09:33→21:46)
[2020-05-07] MEDS: DONEPEZIL HCL 10 MG TABLET (FP) PO SCH (09:33)
[2020-05-07] MEDS: CLOPIDOGREL BISULFATE 75 MG TABLET (FP) PO SCH (09:33)
[2020-05-07] MEDS: ENOXAPARIN NA (PORCINE) 60 MG/0.6 ML DISP.SYRIN SQ SCH (09:34)
[2020-05-07] MEDS: CITALOPRAM HYDROBROMIDE 20 MG TABLET PO SCH (09:34)
[2020-05-07 18:00] LABS: BASO % 0.6 % (0-2.0); EOS % 0.8 % (0-4.5); HEMATOCRIT 40.7 % (32.4-45.2); HEMOGLOBIN 13.2 GM/dL (10.7-15.3); LYMPH % 29.1 % (8-40); MCH 30.3 pg (25.7-33.7); MCHC 32.3 g/dl (32.0-36.0); MEAN CELL VOLUME 93.7 fl (80-96); MEAN PLT VOLUME 9.1 fl (7.5-11.1); NEUT % 59.5 % (42.8-82.8); PLATELET COUNT 195 K/MM3 (134-434); RBC 4.35 M/mm3 (3.60-5.2); RDW 13.3 % (11.6-15.6); WHITE BLOOD COUNT 5.3 K/mm3 (4.0-10.0)
[2020-05-07 18:22] LABS: POTASSIUM 4.2 mmol/L (3.5-5.1)
[2020-05-07 18:23] LABS: CALCIUM 8.6 mg/dL (8.5-10.1)
[2020-05-07 18:24] LABS: ALBUMIN 3.2 g/dl (3.4-5.0); BLOOD UREA NITROGEN 20.2 mg/dL (7-18)
[2020-05-07 18:27] LABS: CREATININE 0.8 mg/dL (0.55-1.3)
[2020-05-07 18:28] LABS: BILIRUBIN,TOTAL 0.3 mg/dL (0.2-1); TOT PROT 6.8 g/dl (6.4-8.2)
[2020-05-07] MEDS: OLANZapine 2.5 MG TABLET PO SCH (21:45)
[2020-05-07] MEDS: APIXABAN 2.5 MG TABLET PO SCH (21:46)
[2020-05-07] MEDS: ATORVASTATIN CA 40 MG TABLET (FP) PO SCH (21:46)
[2020-05-08 07:41] VITALS: BP 133/76; TEMP 98
[2020-05-08 08:36] LABS: BASO % 0.8 % (0-2.0); EOS % 1.4 % (0-4.5); HEMATOCRIT 42.5 % (32.4-45.2); LYMPH % 39.5 % (8-40); MCH 30.5 pg (25.7-33.7); MCHC 32.8 g/dl (32.0-36.0); MEAN CELL VOLUME 92.8 fl (80-96); MEAN PLT VOLUME 8.8 fl (7.5-11.1); MONO % 11.7 % (3.8-10.2); NEUT % 46.6 % (42.8-82.8); PLATELET COUNT 186 K/MM3 (134-434); RBC 4.58 M/mm3 (3.60-5.2); RDW 13.5 % (11.6-15.6); WHITE BLOOD COUNT 4.1 K/mm3 (4.0-10.0)
[2020-05-08 08:47] LABS: POTASSIUM 4.4 mmol/L (3.5-5.1)
[2020-05-08 08:49] LABS: ALBUMIN 3.3 g/dl (3.4-5.0); BLOOD UREA NITROGEN 20.8 mg/dL (7-18); CALCIUM 8.6 mg/dL (8.5-10.1)
[2020-05-08 08:50] LABS: MAGNESIUM 1.7 mg/dL (1.8-2.4)
[2020-05-08 08:53] LABS: CREATININE 0.7 mg/dL (0.55-1.3)
[2020-05-08 08:54] LABS: BILIRUBIN,TOTAL 0.6 mg/dL (0.2-1); TOT PROT 6.8 g/dl (6.4-8.2)
[2020-05-08] MEDS: METOPROLOL TARTRATE 25 MG TABLET (FP) PO SCH (10:00)
[2020-05-08] MEDS: APIXABAN 2.5 MG TABLET PO SCH (10:00)
[2020-05-08] MEDS: BENZTROPINE MESYLATE 0.5 MG TABLET (FP) PO SCH (10:00)
[2020-05-08] MEDS: CITALOPRAM HYDROBROMIDE 20 MG TABLET PO SCH (10:00)
[2020-05-08] MEDS: DONEPEZIL HCL 10 MG TABLET (FP) PO SCH (10:00)
[2020-05-08 10:39] VITALS: PULSE 82
== END 2020-05-08 10:38 | DRG 309 ==
LOC: JER 08:17 → JERBED 12:30 → J4W 05-06 00:11
PROVIDERS: ADMIT Internal Medicine; ATTEND Nurse Practitioner Family
DX: I48.91 Unspecified atrial fibrillation (principal); I50.32 Chronic diastolic (congestive) heart failure; I24.8 Other forms of acute ischemic heart disease; F20.9 Schizophrenia, unspecified; I10 Essential (primary) hypertension; K21.9 Gastro-esophageal reflux disease without esophagitis; R07.9 Chest pain, unspecified; E78.5 Hyperlipidemia, unspecified; R06.02 Shortness of breath
CPT/HCPCS: 36415; 71045-TC-FY; 80053; 80061; 82550; 82728; 82803; 83615; 83721; 83735; 83880; 84100; 84443; 84484; 85025; 85610; 85730; 86140; 87804; 93005; 93010; 93306-TC; 97116-GP; 97161-GP; 99285-25; C9803; U0003

== ENCOUNTER 2020-05-22 16:43 | Inpatient (IN) | payer OTHER ==
[2020-05-22] MEDS ORDERED: METOPROLOL TARTRATE 5 MG/5 ML VIAL IVPUSH ONE (17:28)
[2020-05-22] MEDS ORDERED: METOPROLOL TARTRATE 5 MG/5 ML VIAL ONE (17:34)
[2020-05-22] MEDS ORDERED: metoPROLOL SUCCINATE 25 MG TAB.SR.24H (FP) PO ONE (18:03)
[2020-05-22 18:04] LABS: BASO % 0.3 % (0-2.0); EOS % 0.2 % (0-4.5); HEMATOCRIT 43.4 % (32.4-45.2); HEMOGLOBIN 14.2 GM/dL (10.7-15.3); MCH 30.4 pg (25.7-33.7); MCHC 32.6 g/dl (32.0-36.0); MEAN CELL VOLUME 93.2 fl (80-96); MEAN PLT VOLUME 8.9 fl (7.5-11.1); MONO % 9.4 % (3.8-10.2); NEUT % 75.1 % (42.8-82.8); PLATELET COUNT 151 K/MM3 (134-434); RBC 4.66 M/mm3 (3.60-5.2); RDW 14.6 % (11.6-15.6); WHITE BLOOD COUNT 8.8 K/mm3 (4.0-10.0)
[2020-05-22 18:12] LABS: INR 1.74 (0.83-1.09); PROTHROMBIN TIME (PATIENT) 20.7 SEC (9.7-13.0)
[2020-05-22 18:15] LABS: ACTIVATED PTT 37.2 SECONDS (25.2-36.5)
[2020-05-22] MEDS ORDERED: metoPROLOL SUCCINATE 25 MG TAB.SR.24H (FP) ONE (18:28)
[2020-05-22 18:40] LABS: POTASSIUM 5.2 mmol/L (3.5-5.1)
[2020-05-22 18:42] LABS: ALBUMIN 3.3 g/dl (3.4-5.0); CALCIUM 9.2 mg/dL (8.5-10.1)
[2020-05-22 18:43] LABS: BLOOD UREA NITROGEN 22.8 mg/dL (7-18); MAGNESIUM 1.6 mg/dL (1.8-2.4)
[2020-05-22 18:45] LABS: CREATININE 0.7 mg/dL (0.55-1.3)
[2020-05-22 18:47] LABS: TOT PROT 6.5 g/dl (6.4-8.2)
[2020-05-22 18:51] LABS: N-TERMINAL BNP 4815.5 pg/ml (5-450)
[2020-05-22] MEDS ORDERED: FUROSEMIDE 40 MG/4 ML INJECTABLE VIAL IVPUSH ONE (19:50)
[2020-05-22] MEDS ORDERED: FUROSEMIDE 40 MG/4 ML INJECTABLE VIAL ONE (20:50)
[2020-05-22] MEDS ORDERED: MAGNESIUM SULF 50% (8.12 MEQ/2 ML-1 GM VIAL) IVPB ONE (22:10)
[2020-05-22] MEDS ORDERED: MAGNESIUM 1GM/D5W - 1 GM/100 ML IVPB IVPB ONE (22:37)
[2020-05-22 22:58] LABS: BLOOD UREA NITROGEN 23.4 mg/dL (7-18)
[2020-05-22 23:00] LABS: CREATININE 0.6 mg/dL (0.55-1.3)
[2020-05-22 23:02] LABS: TOT PROT 6.2 g/dl (6.4-8.2)
[2020-05-22] MEDS ORDERED: METOPROLOL TARTRATE 25 MG TABLET (FP) PO ONE (23:32)
[2020-05-23] MEDS ORDERED: METOPROLOL TARTRATE 25 MG TABLET (FP) ONE ×2 (00:05→09:40)
[2020-05-23 07:32] LABS: HEMATOCRIT 39.1 % (32.4-45.2); HEMOGLOBIN 12.8 GM/dL (10.7-15.3); MCH 30.3 pg (25.7-33.7); MCHC 32.8 g/dl (32.0-36.0); MEAN CELL VOLUME 92.5 fl (80-96); MEAN PLT VOLUME 8.8 fl (7.5-11.1); PLATELET COUNT 131 K/MM3 (134-434); RBC 4.23 M/mm3 (3.60-5.2); RDW 13.7 % (11.6-15.6); WHITE BLOOD COUNT 6.1 K/mm3 (4.0-10.0)
[2020-05-23 07:47] LABS: POTASSIUM 3.9 mmol/L (3.5-5.1)
[2020-05-23 07:49] LABS: CALCIUM 8.7 mg/dL (8.5-10.1)
[2020-05-23 07:50] LABS: ALBUMIN 2.7 g/dl (3.4-5.0); MAGNESIUM 1.8 mg/dL (1.8-2.4)
[2020-05-23 07:51] LABS: BLOOD UREA NITROGEN 23.2 mg/dL (7-18)
[2020-05-23 07:52] LABS: BILIRUBIN,DIRECT 0.3 mg/dL (0.0-0.2)
[2020-05-23 07:54] LABS: BILIRUBIN,TOTAL 0.9 mg/dL (0.2-1); CREATININE 0.6 mg/dL (0.55-1.3); PHOSPHOROUS 3.5 mg/dL (2.5-4.9); TOT PROT 5.4 g/dl (6.4-8.2)
[2020-05-23] MEDS ORDERED: DONEPEZIL HCL 5 MG TABLET (FP) ONE ×2 (09:41→11:24)
[2020-05-23] MEDS ORDERED: PANTOPRAZOLE SODIUM 0 MG/0 ML BAG IVPB ONE (09:41)
[2020-05-23] MEDS ORDERED: APIXABAN 2.5 MG TABLET ONE (09:41)
[2020-05-23] MEDS ORDERED: CITALOPRAM HYDROBROMIDE 10 MG TABLET ONE (09:41)
[2020-05-23] MEDS ORDERED: THIAMINE HCL 100 MG TABLET (FP) ONE ×2 (09:41→11:03)
[2020-05-23] MEDS: DONEPEZIL HCL 10 MG TABLET (FP) PO SCH (10:00)
[2020-05-23] MEDS ORDERED: METOPROLOL TARTRATE 25 MG TABLET (FP) PO SCH (10:00)
[2020-05-23] MEDS: CITALOPRAM HYDROBROMIDE 20 MG TABLET PO SCH (10:09)
[2020-05-23] MEDS: APIXABAN 2.5 MG TABLET PO SCH ×2 (10:09→21:26)
[2020-05-23] MEDS: METOPROLOL TARTRATE 25 MG TABLET (FP) PO SCH ×2 (10:10→21:27)
[2020-05-23] MEDS: PANTOPRAZOLE 40 MG TABLET PO SCH (10:10)
[2020-05-23] MEDS: THIAMINE HCL 100 MG TABLET (FP) PO SCH (10:10)
[2020-05-23] MEDS ORDERED: PANTOPRAZOLE 40 MG TABLET ONE (11:03)
[2020-05-23] MEDS: ATORVASTATIN CA 40 MG TABLET (FP) PO SCH ×2 (21:26→21:28)
[2020-05-23] MEDS: OLANZapine 2.5 MG TABLET PO SCH ×2 (21:29→23:25)
[2020-05-23 22:38] VITALS: BMI 18.8
[2020-05-24 07:29] LABS: BASO % 0.3 % (0-2.0); EOS % 1.2 % (0-4.5); HEMATOCRIT 40.1 % (32.4-45.2); HEMOGLOBIN 13.3 GM/dL (10.7-15.3); LYMPH % 26.2 % (8-40); MCH 30.9 pg (25.7-33.7); MCHC 33.1 g/dl (32.0-36.0); MEAN CELL VOLUME 93.3 fl (80-96); MEAN PLT VOLUME 8.8 fl (7.5-11.1); MONO % 11.2 % (3.8-10.2); NEUT % 61.1 % (42.8-82.8); PLATELET COUNT 141 K/MM3 (134-434); WHITE BLOOD COUNT 5.4 K/mm3 (4.0-10.0)
[2020-05-24 07:58] LABS: POTASSIUM 3.6 mmol/L (3.5-5.1)
[2020-05-24 08:00] LABS: BLOOD UREA NITROGEN 21.6 mg/dL (7-18); CALCIUM 8.4 mg/dL (8.5-10.1)
[2020-05-24 08:04] LABS: CREATININE 0.6 mg/dL (0.55-1.3)
[2020-05-24] MEDS ORDERED: PT OWN MED DRAWER 7, Y5N ONE ×2 (10:22→20:55)
[2020-05-24] MEDS: METOPROLOL TARTRATE 25 MG TABLET (FP) PO SCH ×3 (10:47→21:41)
[2020-05-24] MEDS: CITALOPRAM HYDROBROMIDE 20 MG TABLET PO SCH (10:47)
[2020-05-24] MEDS: APIXABAN 2.5 MG TABLET PO SCH ×3 (10:47→21:51)
[2020-05-24] MEDS: THIAMINE HCL 100 MG TABLET (FP) PO SCH (10:47)
[2020-05-24] MEDS: DONEPEZIL HCL 10 MG TABLET (FP) PO SCH (10:47)
[2020-05-24] MEDS: PANTOPRAZOLE 40 MG TABLET PO SCH (10:47)
[2020-05-24] MEDS: BENZTROPINE MESYLATE 0.5 MG TABLET (FP) PO SCH ×3 (10:52→21:46)
[2020-05-24] MEDS: TIOTROPIUM BROMIDE 2.5 MCG (SPIRIVA) RESPIMAT INHALER IH SCH (15:21)
[2020-05-24] MEDS: ATORVASTATIN CA 40 MG TABLET (FP) PO SCH ×2 (21:37→21:51)
[2020-05-24] MEDS: OLANZapine 2.5 MG TABLET PO SCH ×2 (21:40→21:48)
[2020-05-25 06:07] VITALS: TEMP 98.1
[2020-05-25 07:33] LABS: BASO % 0.6 % (0-2.0); EOS % 1.5 % (0-4.5); HEMATOCRIT 41.4 % (32.4-45.2); HEMOGLOBIN 13.6 GM/dL (10.7-15.3); LYMPH % 23.9 % (8-40); MCH 30.5 pg (25.7-33.7); MCHC 32.8 g/dl (32.0-36.0); MEAN PLT VOLUME 8.9 fl (7.5-11.1); MONO % 11.2 % (3.8-10.2); NEUT % 62.8 % (42.8-82.8); PLATELET COUNT 141 K/MM3 (134-434); RBC 4.46 M/mm3 (3.60-5.2); RDW 14.5 % (11.6-15.6); WHITE BLOOD COUNT 4.6 K/mm3 (4.0-10.0)
[2020-05-25 07:52] LABS: POTASSIUM 3.5 mmol/L (3.5-5.1)
[2020-05-25 07:59] LABS: CALCIUM 8.4 mg/dL (8.5-10.1)
[2020-05-25 08:00] LABS: ALBUMIN 2.8 g/dl (3.4-5.0); MAGNESIUM 1.7 mg/dL (1.8-2.4)
[2020-05-25 08:03] LABS: CREATININE 0.5 mg/dL (0.55-1.3)
[2020-05-25 08:05] LABS: BILIRUBIN,TOTAL 0.9 mg/dL (0.2-1); TOT PROT 5.9 g/dl (6.4-8.2)
[2020-05-25] MEDS ORDERED: POTASSIUM CHLORIDE TABS 20 MEQ TABLET.ER (FP) PO ONE (08:31)
[2020-05-25 09:20] VITALS: BP 106/83; PULSE 101
[2020-05-25] MEDS: CITALOPRAM HYDROBROMIDE 20 MG TABLET PO SCH (10:05)
[2020-05-25] MEDS: THIAMINE HCL 100 MG TABLET (FP) PO SCH (10:05)
[2020-05-25] MEDS: METOPROLOL TARTRATE 25 MG TABLET (FP) PO SCH (10:05)
[2020-05-25] MEDS: DONEPEZIL HCL 10 MG TABLET (FP) PO SCH (10:05)
[2020-05-25] MEDS: PANTOPRAZOLE 40 MG TABLET PO SCH (10:05)
[2020-05-25] MEDS: TIOTROPIUM BROMIDE 2.5 MCG (SPIRIVA) RESPIMAT INHALER IH SCH (10:05)
[2020-05-25] MEDS: BENZTROPINE MESYLATE 0.5 MG TABLET (FP) PO SCH (10:05)
[2020-05-25] MEDS: APIXABAN 2.5 MG TABLET PO SCH (10:05)
[2020-05-25] MEDS ORDERED: PT OWN MED DRAWER 7, Y5N ONE (10:10)
== END 2020-05-25 13:12 | DRG 308 ==
LOC: JER 16:43 → JERBED 05-23 07:41 → J4W 05-23 20:32
PROVIDERS: ADMIT Hospitalist; ATTEND Nurse Practitioner Acute Care
DX: I48.92 Unspecified atrial flutter (principal); I50.33 Acute on chronic diastolic (congestive) heart failure; I24.8 Other forms of acute ischemic heart disease; J44.9 Chronic obstructive pulmonary disease, unspecified; K21.9 Gastro-esophageal reflux disease without esophagitis; D64.9 Anemia, unspecified; F20.9 Schizophrenia, unspecified; I10 Essential (primary) hypertension; I48.91 Unspecified atrial fibrillation; E87.5 Hyperkalemia; R74.01 Elevation of levels of liver transaminase levels; F03.90 Unspecified dementia, unspecified severity, without behavioral disturbance, psychotic disturbance, mood disturbance, and anxiety; E83.42 Hypomagnesemia; Z20.822 Contact with and (suspected) exposure to COVID-19
CPT/HCPCS: 36415; 71045-TC-FY; 80048; 80053; 80076; 82550; 83735; 83880; 84100; 84484; 85025; 85027; 85610; 85730; 87804; 93005; 93010; 97116-GP; 97161-GP; 99291; C9803; U0003